=== PATIENT | male | born 1950 | race Caucasian/White ===

== ENCOUNTER 2019-07-16 12:51 | Outpatient (CLI) | payer MEDICARE, SELFPAY ==
--- NOTE | 2019-07-16 13:30 | USCV_ITS ---
Seferino Rashid Age: 68 Gender: M : 1950 Exam Date: 07/16/2019 13:37 Ordering Phys: Faby Morales MD ([email or web address]) Technologist: Parviz Burns Exam Location: [facility] – [place] Indication: SOB BP: 125 / 74 HR: 84 Rhythm: Sinus Technical Quality: Fair MEASUREMENTS (Male / Female) Normal Values 2D ECHO LV Diastolic Diameter PLAX 4.1 cm 4.2 - 5.9 / 3.9 - 5.3 cm LV Systolic Diameter PLAX 3.1 cm IVS Diastolic Thickness 1.0 cm 0.6 - 1.0 / 0.6 - 0.9 cm IVS Systolic Thickness 1.5 cm LVPW Diastolic Thickness 0.9 cm 0.6 - 1.0 / 0.6 - 0.9 cm LVPW Systolic Thickness 1.3 cm LVOT Diameter 2.5 cm LV Ejection Fraction 2D Teich 47.8 % LV Ejection Fraction MOD 2C 55.9 % LV Ejection Fraction 2C AL 56.4 % LA Diameter 4.4 cm LA Width 4.3 cm LA Height 5.3 cm RA Width 4.0 cm RA Height 5.2 cm M-MODE LV Diastolic Diameter MM 5.5 cm 4.2 - 5.9 / 3.9 - 5.3 cm LV Systolic Diameter MM 3.5 cm LV Ejection Fraction MM Teich 66.6 % IVS Diastolic Thickness MM 0.9 cm 0.6 - 1.0 / 0.6 - 0.9 cm IVS Systolic Thickness MM 1.7 cm LVPW Diastolic Thickness MM 1.5 cm 0.6 - 1.0 / 0.6 - 0.9 cm LVPW Systolic Thickness MM 1.6 cm RV Diastolic Diameter MM 1.0 cm Aortic Annulus Diameter 4.3 cm LA Ao Ratio MM 1.0 MV E Point Septal Separation 0.8 cm DOPPLER AV Peak Velocity 127.0 cm/s LVOT Peak Velocity 89.0 cm/s AV Area Cont Eq vti 3.5 cm squared AV Area Cont Eq pk 3.5 cm squared MV Area PHT 5.0 cm squared Mitral E to A Ratio 3.3 MV E' Velocity 14.0 cm/s Mitral E to MV E' Ratio 8.4 Mitral E to LV E' Lateral Ratio 7.0 Mitral E to LV E' Septal Ratio 10.7 TR Peak Velocity 280.0 cm/s TR Peak Gradient 31.4 mmHg TV Peak E Velocity 79.0 cm/s Right Atrial Pressure 3.0 mmHg Pulmonary Artery Systolic Pressu 34.4 mmHg FINDINGS Left Ventricle Normal left ventricular cavity size. Normal left ventricular systolic function. No regional wall motion abnormalities. Left ventricular ejection fraction is estimated at 66 %. Grade III/IV diastolic dysfunction (restrictive filling pattern), severely elevated filling pressures. Right Ventricle Normal right ventricular size. Mild pulmonary hypertension, RVSP 34.4 mmHg. Right Atrium The right atrium is normal in size. Left Atrium The left atrium is normal in size. Mitral Valve Structurally normal mitral valve without significant stenosis or prolapse. There is no mitral regurgitation. Aortic Valve Aortic valve sclerosis without stenosis or regurgitation. Tricuspid Valve Structurally normal tricuspid valve without significant stenosis or regurgitation. Pulmonary artery systolic pressure is normal. Pulmonic Valve Structurally normal pulmonic valve without significant stenosis. There is no pulmonic regurgitation. Pericardium Normal pericardium without effusion. Aorta Normal ascending aorta dimension. CONCLUSIONS 1-Normal left ventricular cavity size. Normal left ventricular systolic function. No regional wall motion abnormalities. Left ventricular ejection fraction is estimated at 66 %. Grade III/IV diastolic dysfunction (restrictive filling pattern), severely elevated filling pressures. 2-Aortic valve sclerosis without stenosis or regurgitation. 3-Normal right ventricular size. Mild pulmonary hypertension, RVSP 34.4 mmHg. 4-There is no pericardial effusion. 5-When compared to the prior exam dated 07/04/2018, there is no significant change. Faby Morales MD (Electronically Signed) Final Date: 17 July 2019 14:08 S
== END 2019-07-16 12:52 | disposition home or self-care (01) ==
LOC: RAD 12:53
PROVIDERS: Family Provider Family Medicine; PCP Family Medicine; Visit Provider Internal Medicine Cardiovascular Disease
DX: I27.20 Pulmonary hypertension, unspecified (principal); R01.1 Cardiac murmur, unspecified; R06.02 Shortness of breath
CPT/HCPCS: 93306

== ENCOUNTER 2019-08-07 11:21 | Outpatient (CLI) | payer MEDICARE, SELFPAY ==
--- NOTE | 2019-08-07 11:36 | CT_ITS ---
WS: [id number] CT LUNG CANCER SCREENING DLP: 48.35 mGy.cm DIvol: 1.51 mGy CLINICAL INFORMATION SCREENING VISIT: Baseline COMPARISON: Chest CTA 07/26/2017 FINDINGS Diagnostic quality: Limited by body habitus. Comments: None. Lung Nodules: None. Lungs: Subsegmental atelectasis at the lung bases bilaterally. Greater atelectasis at the RIGHT lung base. Additional linear stranding in the RIGHT middle lobe. No fissural nodules. This examination is not diagnostically adequate to exclude adenopathy. Pulmonary artery is markedly enlarged measuring 4. 7 cm in transverse diameter. Pulmonary arteries proximally are enlarged. Heart: Moderate enlargement the heart chambers. Scattered plaque within the RIGHT coronary, circumfle x and LEFT anterior descending coronary arteries. Other findings: None. 3. Incidental: Exam is limited by body habitus. CT/CT lung screening [id number] IMPRESSION: LUNG-RADS: 1S-Negative with Significant Findings FOLLOW UP: 12 Month: Continue annual screening with LDCT 1. Pulmonary hypertension. 2. Mild coronary artery calcification.
== END 2019-08-07 11:22 | disposition home or self-care (01) ==
LOC: RAD 11:25
PROVIDERS: Family Provider Family Medicine; PCP Family Medicine; Visit Provider Internal Medicine Critical Care Medicine
DX: I27.20 Pulmonary hypertension, unspecified (principal); Z87.891 Personal history of nicotine dependence; I25.10 Atherosclerotic heart disease of native coronary artery without angina pectoris
CPT/HCPCS: G0297

== ENCOUNTER 2019-08-14 07:02 | Outpatient (CLI) | payer MEDICARE, SELFPAY ==
[2019-08-14 07:33] LABS: Basophils # 0.1 10^3/uL (0.0-0.1); Basophils % 0.7 %; Eosinophils # 0.6 10^3/uL (0.0-0.8); Eosinophils % 4.5 %; Hematocrit 43.9 % (42.0-52.0); Hemoglobin 12.4 g/dL (11.7-16.6); Lymphocytes # 1.5 10^3/uL (0.8-4.8); Lymphocytes % 11.2 %; Mean Corpuscular HGB Conc 28.2 g/dL (30.0-36.0); Mean Corpuscular Hemoglobin 21.5 pg (28.0-34.0); Mean Corpuscular Volume 76.2 fL (80-94); Mean Platelet Volume 9.9 fL (7.4-10.4); Monocytes # 0.6 10^3/uL (0.2-0.9); Monocytes % 4.7 %; Neutrophils # 10.4 10^3/uL (1.8-7.7); Neutrophils % 76.5 %; Nucleated Red Blood Cells % 0 %; Platelet Count 604 10^3/cmm (130-400); Red Blood Count 5.76 10^6/uL (4.1-5.3); Red Cell Distribution Width 19.7 % (12.1-15.1); White Blood Count 13.5 10^3/uL (4.0-10.0)
[2019-08-14 07:57] LABS: Alanine Aminotransferase 13 U/L (0-41); Albumin Level 3.7 g/dL (3.5-5.2); Alkaline Phosphatase 108 IU/L (40-130); Anion Gap 13.4 (5-19); Aspartate Amino Transferase 17 U/L (0-40); Blood Urea Nitrogen 19 mg/dL (8-23); Calcium 9.1 mg/dL (8.5-10.5); Carbon Dioxide 35 mmol/L (22-29); Chloride 97 mmol/L (98-107); Globulin 3.5 g/dL (1.3-4.6); Glomerular Filtration Rate 66.8 mL/min (90-130); Glucose 149 mg/dL (65-115); Magnesium 1.6 mg/dL (1.7-2.3); Potassium 3.4 mmol/L (3.5-5.1); Sodium 142 mmol/L (136-145); Thyroid Stimulating Hormone 3.79 uIU/mL (0.27-4.20); Total Bilirubin 0.5 mg/dL (0.15-1.2); Total Protein 7.2 g/dL (6.6-8.7)
== END 2019-08-14 07:03 | disposition home or self-care (01) ==
LOC: LAB 07:09
PROVIDERS: Family Provider Family Medicine; PCP Family Medicine; Visit Provider Internal Medicine
DX: I48.91 Unspecified atrial fibrillation (principal); I10 Essential (primary) hypertension
CPT/HCPCS: 36415; 80053; 83735; 84443; 85025

== ENCOUNTER → 2019-08-24 12:36 | Outpatient (BNVA) | payer MEDICARE, SELFPAY | PROVIDERS: Family Provider Family Medicine; PCP Family Medicine; Visit Provider Nurse Practitioner | DX: J10.1 Influenza due to other identified influenza virus with other respiratory manifestations | CPT/HCPCS: 87804 ==

== ENCOUNTER 2019-09-09 12:12 | Outpatient (CLI) | payer MEDICARE, SELFPAY ==
--- NOTE | 2019-09-09 14:17 | PFTS_ITS ---
Date of Study:09/09/2019 Date of Dictation: MECHANICS: Forced vital capacity (FVC) is reduced. Forced expiratory volume in one second (FEV1) is reduced. FEV1/FVC is normal. FLOW VOLUME LOOP: Narrow. LUNG VOLUMES: Total lung capacity (TLC) is normal. Residual volume (RV) is normal. DIFFUSING CAPACITY FOR CARBON MONOXIDE: Mildly reduced. INTERPRETATION: The pulmonary function tests are consistent with nonspecific ventilatory limitation. Spirometry is consistent with moderate restriction. However, the total lung capacity is normal. This is possibly secondary to a combined obstructive and restrictive defect. The preserved inspiratory capacity with severely reduced expiratory reserve volume is suggestive of extrapulmonary cause of restriction. Total lung capacity and residual volume are normal. Gas exchange (DLCO) is mildly reduced. MTDD
== END 2019-09-09 12:13 | disposition home or self-care (01) ==
LOC: RT 12:13
PROVIDERS: Family Provider Family Medicine; PCP Family Medicine; Visit Provider Internal Medicine Critical Care Medicine
DX: R06.02 Shortness of breath (principal)
CPT/HCPCS: 94060; 94726; 94729; J7611

== ENCOUNTER 2019-11-30 12:00 | Outpatient (CLI) | payer MEDICARE, SELFPAY | END 2019-11-30 12:01 | disposition home or self-care (01) | LOC: SLEEP 12-01 13:18 | PROVIDERS: Family Provider Family Medicine; PCP Family Medicine; Visit Provider Internal Medicine Critical Care Medicine | DX: R06.02 Shortness of breath (principal) | CPT/HCPCS: 94762 ==

== ENCOUNTER → 2019-12-03 09:40 | Outpatient (BNVA) | payer MEDICARE, SELFPAY | PROVIDERS: Family Provider Family Medicine; PCP Family Medicine; Visit Provider Urology | DX: R97.20 Elevated prostate specific antigen [PSA] (principal); R39.9 Unspecified symptoms and signs involving the genitourinary system; N40.1 Benign prostatic hyperplasia with lower urinary tract symptoms; R35.1 Nocturia | CPT/HCPCS: 81001; 84153 ==

== ENCOUNTER → 2019-12-15 11:10 | Outpatient (BNVA) | payer MEDICARE, SELFPAY | PROVIDERS: Family Provider Family Medicine; PCP Family Medicine; Visit Provider Nurse Practitioner Family | DX: I50.30 Unspecified diastolic (congestive) heart failure (principal) | CPT/HCPCS: 80048 ==

== ENCOUNTER 2020-01-06 11:00 | Outpatient (CLI) | payer MEDICARE, SELFPAY | END 2020-01-06 11:01 | disposition home or self-care (01) | LOC: SLEEP 01-07 11:47 | PROVIDERS: PCP Family Medicine; Visit Provider Internal Medicine Critical Care Medicine | DX: J96.11 Chronic respiratory failure with hypoxia (principal) | CPT/HCPCS: 94762 ==

== ENCOUNTER 2020-01-07 11:17 | Outpatient (CLI) | payer MEDICARE, SELFPAY ==
[2020-01-07 13:54] LABS: Anion Gap 11.7 (5-19); Blood Urea Nitrogen 39 mg/dL (8-23); Calcium 8.6 mg/dL (8.5-10.5); Carbon Dioxide 33 mmol/L (22-29); Chloride 97 mmol/L (98-107); Glomerular Filtration Rate 50.5 mL/min (90-130); Glucose 159 mg/dL (65-115); Osmolality Calculated 287 mOsm/kg (285-295); Potassium 3.7 mmol/L (3.5-5.1); Sodium 138 mmol/L (136-145)
== END 2020-01-07 11:18 | disposition home or self-care (01) ==
LOC: LAB 11:20
PROVIDERS: PCP Family Medicine; Visit Provider Internal Medicine Critical Care Medicine
DX: I50.30 Unspecified diastolic (congestive) heart failure (principal)
CPT/HCPCS: 80048

== ENCOUNTER 2020-01-25 11:44 | Outpatient (CLI) | payer MEDICARE, SELFPAY ==
[2020-01-25 14:57] LABS: Anion Gap 14.7 (5-19); Blood Urea Nitrogen 30 mg/dL (8-23); Calcium 8.9 mg/dL (8.5-10.5); Carbon Dioxide 27 mmol/L (22-29); Chloride 99 mmol/L (98-107); Glomerular Filtration Rate 60.4 mL/min (90-130); Glucose 147 mg/dL (65-115); Osmolality Calculated 284 mOsm/kg (285-295); Potassium 3.7 mmol/L (3.5-5.1); Sodium 137 mmol/L (136-145)
== END 2020-01-25 11:45 | disposition home or self-care (01) ==
LOC: LAB 11:48
PROVIDERS: PCP Family Medicine; Visit Provider Internal Medicine Critical Care Medicine
DX: I50.33 Acute on chronic diastolic (congestive) heart failure (principal)
CPT/HCPCS: 80048

== ENCOUNTER 2020-02-08 11:00 | Outpatient (CLI) | payer MEDICARE, SELFPAY | END 2020-02-08 11:01 | disposition home or self-care (01) | LOC: SLEEP 02-09 15:16 | PROVIDERS: PCP Family Medicine; Visit Provider Internal Medicine Critical Care Medicine | DX: J96.11 Chronic respiratory failure with hypoxia (principal) | CPT/HCPCS: 94762 ==

== ENCOUNTER → 2020-06-06 10:16 | Outpatient (BNVA) | payer MEDICARE, SELFPAY | PROVIDERS: PCP Family Medicine; Visit Provider Specialist | DX: G25.81 Restless legs syndrome (principal); G62.89 Other specified polyneuropathies; Z87.891 Personal history of nicotine dependence | CPT/HCPCS: 95885; 95910; G0463 ==

== ENCOUNTER 2020-06-07 08:29 | Outpatient (CLI) | payer MEDICARE, SELFPAY ==
--- NOTE | 2020-06-07 08:31 | USCV_ITS ---
Seferino Rashid Age: 69 Gender: M : 1950 Exam Date: 06/07/2020 09:01 Ordering Phys: Jon Davis MD Technologist: Jerry Lewis Exam Location: [facility] [place] Indication: restless leg syndrome Risk Factors: Previous Vascular Surgery: RIGHT LEFT BP: 131.0 / 76.00 BP: 127.0/ 67.00 0 0 Waveform Velocity (cm/s) Velocity (cm/s) Waveform Triphasic 94.8 Iliac Prox 125.7 Triphasic Triphasic 86.4 Iliac Mid 87.3 Triphasic Triphasic 111.4 Iliac Distal 95.2 Triphasic Triphasic 149.9 BIOLOGY TUTOR 127.7 Triphasic Triphasic 115.7 SFA Prox 99.8 Triphasic Triphasic 139.3 SFA Mid 93.7 Triphasic Triphasic SFA Dist Triphasic 123.6 71.7 Triphasic 74.9 POP 76.1 Triphasic Triphasic 127.9 DISPATCHER CHIEF COAL SLURRY 77.8 Triphasic Triphasic 62.1 DPA 61.8 Triphasic 1.4 LULU 1.5 FINDINGS Supernormal resting ABIs bilaterally Normal arterial Doppler waveforms CONCLUSIONS No significant arterial obstruction, based on the above findings Dr Sanjuana Quick MD [facility] (Electronically Signed) Final Date: 07 June 2020 14:18 S
== END 2020-06-07 08:30 | disposition home or self-care (01) ==
LOC: US 08:30
PROVIDERS: PCP Family Medicine; Visit Provider Family Medicine
DX: G25.81 Restless legs syndrome (principal)
CPT/HCPCS: 93925

== ENCOUNTER → 2020-08-25 08:23 | Outpatient (BNVA) | payer MEDICARE, SELFPAY | PROVIDERS: PCP Family Medicine; Referring Provider Internal Medicine Critical Care Medicine; Visit Provider Internal Medicine | DX: E11.22 Type 2 diabetes mellitus with diabetic chronic kidney disease (principal); N18.2 Chronic kidney disease, stage 2 (mild); E11.65 Type 2 diabetes mellitus with hyperglycemia; E78.2 Mixed hyperlipidemia; I50.33 Acute on chronic diastolic (congestive) heart failure | CPT/HCPCS: 36415; 80048; 99205 ==

== ENCOUNTER 2020-08-25 09:40 | Outpatient (CLI) | payer MEDICARE, SELFPAY ==
[2020-08-25 10:55] LABS: Anion Gap 12.3 (5-19); Blood Urea Nitrogen 32 mg/dL (8-23); Calcium 8.5 mg/dL (8.5-10.5); Carbon Dioxide 33 mmol/L (22-29); Chloride 98 mmol/L (98-107); Glomerular Filtration Rate 46.5 mL/min (90-130); Glucose 147 mg/dL (65-115); Osmolality Calculated 300 mOsm/kg (285-295); Potassium 3.3 mmol/L (3.5-5.1); Sodium 140 mmol/L (136-145)
== END 2020-08-25 09:41 | disposition home or self-care (01) ==
PROVIDERS: PCP Family Medicine; Visit Provider Internal Medicine
DX: E11.22 Type 2 diabetes mellitus with diabetic chronic kidney disease (principal)
CPT/HCPCS: 36415; 80048

== ENCOUNTER 2020-08-30 09:03 | Outpatient (CLI) | payer MEDICARE, SELFPAY ==
--- NOTE | 2020-08-30 09:05 | CT_ITS ---
WS: [id number] LDCT LUNG CANCER SCREENING TECHNIQUE: Noncontrast CT of the chest with coronal and sagittal reformatted images. CLINICAL INFORMATION: HX OF TOBACCO USE COMPARISON: August 07, 2019 DLP: 52.21 mGy.cm DIvol: 1.[address] scans at [facility] use at least one of these dose optimization techniques: automat ed exposure control; mA and/or kV adjustment per patient size (includes targeted exams where dose is matched to clinical indication); or iterative reconstruction. FINDINGS: Cardiomegaly. Aortic calcification. Coronary calcification. No mediastinal or hilar lymphadenopathy. Normal GE junction. No suspicious pulmonary parenchymal opacities. Subsegmental atelectasis in the ri ght middle lobe and right lower lobe. Hypertrophic changes thoracic spine. Mild thoracic kyphosis. CT/CT lung screening [id number] IMPRESSION: LUNG-RADS: 2-Benign Appearance or Behavior FOLLOW UP: 12 Month: Continue annual screening with LDCT
== END 2020-08-30 09:04 | disposition home or self-care (01) ==
LOC: RAD 09:03
PROVIDERS: PCP Family Medicine; Visit Provider Internal Medicine Critical Care Medicine
DX: Z12.2 Encounter for screening for malignant neoplasm of respiratory organs (principal); Z87.891 Personal history of nicotine dependence; I51.7 Cardiomegaly; I70.0 Atherosclerosis of aorta; I25.10 Atherosclerotic heart disease of native coronary artery without angina pectoris
CPT/HCPCS: 71271

== ENCOUNTER → 2020-09-02 09:27 | Outpatient (BNVA) | payer MEDICARE, SELFPAY | PROVIDERS: PCP Family Medicine; Visit Provider Internal Medicine | DX: E11.9 Type 2 diabetes mellitus without complications (principal); E78.5 Hyperlipidemia, unspecified; E78.2 Mixed hyperlipidemia | CPT/HCPCS: 80061; 83036 ==

== ENCOUNTER 2020-09-26 10:38 | Outpatient (CLI) | payer MEDICARE, SELFPAY ==
[2020-09-26 11:20] LABS: Anion Gap 14.2 (5-19); Blood Urea Nitrogen 36 mg/dL (8-23); Calcium 8.5 mg/dL (8.5-10.5); Carbon Dioxide 29 mmol/L (22-29); Chloride 97 mmol/L (98-107); Glomerular Filtration Rate 50.4 mL/min (90-130); Glucose 144 mg/dL (65-115); Osmolality Calculated 295 mOsm/kg (285-295); Potassium 3.2 mmol/L (3.5-5.1); Sodium 137 mmol/L (136-145)
== END 2020-09-26 10:39 | disposition home or self-care (01) ==
PROVIDERS: PCP Family Medicine; Visit Provider Internal Medicine Cardiovascular Disease
DX: I50.33 Acute on chronic diastolic (congestive) heart failure (principal); E11.22 Type 2 diabetes mellitus with diabetic chronic kidney disease; N18.2 Chronic kidney disease, stage 2 (mild)
CPT/HCPCS: 36415; 80048; 87635

== ENCOUNTER 2020-09-30 05:58 | Day surgery (SDC) | payer MEDICARE, SELFPAY ==
[2020-09-30 06:52] VITALS: BP 117/74; PULSE 73; RESP 18; TEMP 36.8; O2SAT 91; BMI 47.5
[2020-09-30 07:00] LABS: Basophils # 0.1 10^3/uL (0.0-0.1); Basophils % 0.8 %; Eosinophils # 0.7 10^3/uL (0.0-0.8); Eosinophils % 4.2 %; Hematocrit 41.7 % (42.0-52.0); Hemoglobin 12.2 g/dL (11.7-16.6); Lymphocytes # 1.4 10^3/uL (0.8-4.8); Lymphocytes % 8.5 %; Mean Corpuscular HGB Conc 29.3 g/dL (30.0-36.0); Mean Corpuscular Hemoglobin 21.9 pg (28.0-34.0); Mean Corpuscular Volume 74.9 fL (80-94); Mean Platelet Volume 9.7 fL (7.4-10.4); Monocytes % 5.8 %; Neutrophils # 13.33 10^3/uL (1.8-7.7); Neutrophils % 79.4 %; Nucleated Red Blood Cells % 0 %; Platelet Count 765 10^3/cmm (130-400); Red Blood Count 5.57 10^6/uL (4.1-5.3); Red Cell Distribution Width 18.6 % (12.1-15.1); White Blood Count 16.8 10^3/uL (4.0-10.0)
[2020-09-30] MEDS: diphenhydrAMINE 50 mg Capsule PO (07:14)
--- NOTE | 2020-09-30 07:59 | PC.NURSE ---
updated pt with delay in case due to prior patient in the lab head- patient and family okay with the delay.
--- NOTE | 2020-09-30 08:15 | PC.NURSE ---
pt case now to be bumped to later this afternoon. after discussing with pt he can go to 107 and wait or being rescheduling he has decided to wait til later this afternoon. on the way out the door of [facility] he did voice his concern with waiting and he might decide to go home. i told him he should get down to the room and then decide after the change of rooms. if he does change his mind he was told to notify his nurse. he understood. due to the case being bumped his is allowed to stay with him per dr duarte.
--- NOTE | 2020-09-30 10:15 | PC.NURSE ---
patient requested at this time to be sent home to rescheduled procedure IV discontinued; cath intact Mai RN in CPRU notified she stated I will take care of rescheduling procedure
== END 2020-09-30 10:28 | disposition home or self-care (01) ==
LOC: CCL 05:59 → CSU 09:27
PROVIDERS: PCP Family Medicine; Visit Provider Internal Medicine Cardiovascular Disease
DX: R06.02 Shortness of breath (principal)
CPT/HCPCS: 85025; J1644; J2250; J3010; Q0163

== ENCOUNTER → 2020-10-14 06:02 | Day surgery (SDC) | payer MEDICARE, SELFPAY ==
--- NOTE | 2020-10-14 06:00 | XACV_ITS ---
BSA: 2.77 m2 Gender: Male : 1950 Any Known Allergies: Other Exam Priority: Routine Procedure(s): Procedure Description: Diagnostic procedure Procedure Description: Right Heart Catheterization Diagnostic Cath Status: Elective Conclusions 1. Right heart catheterization: Indication: Unexplained shortness of breath, pulmonary hypertension1-RA mean 24 mmHg2-RV 51/16 mean of 23 mmHg2-PA mean 42 mmHgPulmonary capillary wedge 30 mmHgCardiac output by Noemi 5 L, cardiac index 2.0No significant stepup notedModerate post capillary pulmonary hypertension, no reversibility noted.. Recommendations * Usual post-cath care. Diagnostic RX Recommendation: medical therapy and/or counseling Pressures Phase:Rest RV : 51 / 16 / 23 @ 7:44:00 AM PA : 68 / 37 ( 42 ) @ 7:26:00 AM 51 / 30 ( 41 ) @ 7:31:00 AM 55 / 33 ( 39 ) @ 7:35:00 AM 48 / 30 ( 38 ) @ 7:36:00 AM 55 / 35 ( 40 ) @ 7:44:00 AM RA : a wave = 30 v wave = 26 mean = 24 @ 7:45:00 AM PCW : a wave = 33 v wave = 32 mean = 30 @ 7:27:00 AM O2 Content Phase:Rest PA : O2 Content O2: 37.9 @ 7:31:00 AM Saturations Phase:Rest AO : 71 @ 7:26:00 AM RA : 38 @ 7:35:00 AM RV : 40 @ 7:36:00 AM PA : 38 @ 7:31:00 AM Cardiac Output Phase:Rest Noemi : 5 @ 11:11:13 AM Noemi Cardiac Index: 2 @ 11:11:13 AM Flow Phase:Rest Qp : 5 @ 11:11:13 AM Qs : 5 @ 11:11:13 AM Clinical Evaluation EBL: 5mL-10mL Procedural Details Procedure Consent Obtained. Pre-Procedure Time Out. Identified patient by full name and date of as verbalized by the patient/guarantor. Does the consent match the physician's order: Yes. Accurate & Complete Informed Consent: Yes. Inpatient/Outpatient History & Physical on Chart: Yes. If H&P is completed, is and addenduem needed: No; If yes, is the addendum complete: N/A. Visualize and Verify Site with Patient/Guarantor: N/A. Relevant Radiology Images available: Yes. Pre-op teaching completed and patient verbalized understanding. The risks, benefits, and alternatives of sedation and/or procedure were discussed by physician. The patient agrees to continue. Procedure started. Correct patient, site and procedure confirmed by cath team. PERRLA. Strong, equal hand oracle financials developer bilaterally. Lungs clear x 5 lobes. IV Site on Arrival: 20 gauge in the right anticubital. IV Site on Arrival: 20 gauge in the left anticubital. IV Fluids: 0.9% NaCl at KVO. 0 mL infused prior to sugar laboratory assistant. Pre Procedural Pulses: bilateral radial was 3+. Oxygen started at 2liters/min via nasal canula. bilateral groins was prepped with chloroprep then draped in the usual sterile fashion. Physician notified. Baseline sample Acquired. HR: 65 BPM. Physician arrived. Equipment: 6F - Radial. ACIST Manifold Kit Model BT 2000. Cardiac Cath Pack. Heparinized Saline (2 units/mL), 1000 mL bag. Physician scrubbed in. Immediate Pre-Procedure Time Out. Correct Patient: Yes; Correct Procedure: Yes; Correct Site: Yes; Correct Patient Position: Yes; Correct Supplies: Yes; Dried Flammable Prep: Yes; Blood Products Available: No;. Lidocaine 1% infiltrated to the right brachial. Sheath wire inserted into the [facility] brachial IV. [place] MON catheter inserted. Oximetry samples were obtained. Normal venous range: 60-85%. Normal arterial range: 95-100%. Pressure measurements obtained. A Manual Compression was successful obtaining hemostatsis at the Right Brachial Vein insertion site. Post Procedure: Pulses reassessed and unchanged. PERRLA. Strong, equal hand oracle financials developer bilaterally. No VTE prophylaxis required. Medication's Wasted: Lidocaine 1% = 14 mL. Medication's Wasted: Heparin = 1000 units. Medication's Wasted: Other = Versed 1 mg. Total IV fluids: 50 mL. Complications: None. Post-op diagnosis: Pulmonary Hypertension. Estimated blood loss: 5mL-10mL. Procedure completed. Vital chart was stopped. Patient transferred by bed to CPRU. Access Site Site: Right Brachial Vein Sheath Size: 6 Fr Hemostasis Method: Manual Compression Hemostasis Success: Successful Procedure Medications Start: 8:09 AM Stop: 8:09 AM Medication: Fentanyl Amount: 50 mcg Route: I.V. Start: 8:16 AM Stop: 8:16 AM Medication: Versed Amount: 1 mg Route: I.V. Start: 8:22 AM Stop: 8:22 AM Medication: Versed Amount: 1 mg Route: I.V. Start: 8:29 AM Stop: 8:29 AM Medication: Nitrogylcerin Amount: 2 Sprays Start: 8:32 AM Stop: 8:32 AM Medication: Nitrogylcerin Amount: 2 Sprays Start: 8:34 AM Stop: 8:34 AM Medication: Fentanyl Amount: 25 mcg Route: I.V. Start: 8:40 AM Stop: 8:40 AM Medication: Nitrogylcerin Amount: 2 Sprays Start: 8:41 AM Stop: 8:41 AM Medication: Versed Amount: 1 mg Route: I.V. I, the attending physician, have reviewed and verified all procedure medications. Yes, all medications given per verbal order History/Risk Factors Hypertension: Yes Dyslipidemia: Yes Peripheral Arterial Disease (PAD): No Myocardial Infarction (MO): No Obesity: No Renal Disease: No Prior Interventions PCI: No CABG: No Valve Surgery: No Report Signatures Finalized by Faby Morales MD on 10/27/2020 07:13 PM
[2020-10-14 06:31] VITALS: BP 108/62; PULSE 72; RESP 16; TEMP 36.3; O2SAT 88; BMI 46.5
--- NOTE | 2020-10-14 07:54 | P.HP_ITS ---
Same Day Surgery H&P Indication for Procedure/HPI DATE OF PROCEDURE: October 14, 2020 CHIEF COMPLAINT/INDICATIONFOR SURGICAL PROCEDURE: Pulmonary hypertension PREOP DIAGNOSIS: Pulmonary hypertension PLANNED PROCEDRUE: Operation Date: 10/14/20 07:00 Proposed Procedures p Cardiac Catheterization 83528 R06.02(Right) - Faby Morales MD 70-year-old male past medical history significant for atrial fibrillation ascending aortic aneurysm uncontrolled hypertension diastolic heart failure and atrial fibrillation for worsening of shortness of breath he is here for right heart cath recommended by Dr. Rao from pulmonary department. Patient has been explained all risk benefit and alternative for the procedure. Patient understan d the risk for pulmonary artery rupture leading to major minor bleed, urgent emergent surgery, pulmonary embolism, arrhythmia. He would like to proceed with it. Medications/Allergies* Home Medications Medication Instructions Recorded Confirmed Type albuterol sulfate 90 mcg/actuation 2 puff INHALATION Q6H PRN 07/08/19 10/14/20 History aerosol inhaler amlodipine 5 mg tablet 5 mg PO DAILY tab 07/08/19 10/14/20 History aspirin 81 mg tablet,delayed 81 mg PO DAILY tab 07/08/19 10/14/20 History release fluticasone furoate 27.5 1 spray INTRANASAL DAILY ml 07/08/19 10/14/20 History mcg/actuation nasal spray,suspension magnesium oxide 400 mg PO DAILY cap 07/08/19 10/14/20 History sertraline 50 mg tablet 50 mg PO DAILY tab 07/08/19 10/14/20 History tadalafil 5 mg tablet 5 mg PO DAILY tab 07/08/19 10/14/20 History tamsulosin 0.4 mg capsule 0.4 mg PO BID cap 07/08/19 10/14/20 History ropinirole 0.5 mg tablet 1 mg PO TID tab 03/10/20 10/14/20 History hydroxyzine HCl 25 mg tablet 50 mg PO BID PRN tab 07/26/20 10/14/20 History umeclidinium-vilanterol [Anoro 1 inh INHALATION DAILY 09/30/20 10/14/20 History Ellipta] Allergies/Adverse Reactions Allergy/AdvReac Type Severity Reaction Status Date / Time levofloxacin [From Levaquin] Allergy Unknown ADR/ALGY-Fl Verified 10/14/20 06:40 ushing codeine AdvReac Unknown ADR-Blurry Verified 10/14/20 06:40 Vision metaxalone [From Skelaxin] AdvReac Unknown ADR-Blurry Verified 10/14/20 06:40 Vision Current Medications: Generic Name Dose Route Start Last Admin Trade Name Alexandr PRN Reason Stop Dose Admin Sodium Chloride 1,000 mls @ 50 mls/hr 10/14/20 06:00 10/14/20 06:14 Sodium Chloride 0.9% IV 10/15/20 01:59 Not Given .Q20H ONE Pertinent History/Comorbid Conditions* Medical History (Updated 08/25/20 @ 15:10 by Terry Mason MD) Ascending aortic aneurysm Atrial fibrillation Diastolic heart failure Elevated PSA GERD (gastroesophageal reflux disease) History of colon polyps HTN (hypertension) Osteoarthritis Surgical History (Updated 03/05/20 @ 10:00 by Anjel Dalal MD) History of orthopedic surgery S/P appendectomy S/P cholecystectomy Status post colonoscopy with polypectomy Family History (Updated 08/05/19 @ 08:58 by Rosalie Babin LPN) Diabetes Father Brother Heart failure Mother Sepsis Father Cancer Brother stomach; colon Mother colon; liver Social History Smoking and tobacco status: former smoker Quit status (tobacco): has quit using tobacco Year quit tobacco: 2011 1PPD x 40 Years Second hand smoke exposure: No Alcohol intake: never Lives independently: Yes Household members: spouse Marital status: Current occupational status: retired History of recent travel: No Leisure activites: reading Current gender identity: Male Pertinent Exam Findings alert, oriented x 3 and clear to auscultation bilaterally Conscious Sedation Assessment PATIENT ASSESSED PRIOR TO SEDATION, WITH NO CHANGE NOTED: Yes AIRWAY EVAL/ANESTHESIA PLAN: ASA II, Risks, benefits & alternatives of sedation and/or procedure discussed and Patient agrees to continue as planned Recommendations Surgery/Procedure today Coding Level of Care Code Acute Human Resource Manager for Maryan Masters
[2020-10-14 09:00] VITALS: BP 98/65; PULSE 79; RESP 16; O2SAT 90
[2020-10-14 09:15] VITALS: BP 115/69; PULSE 71; RESP 20; O2SAT 92
[2020-10-14 09:30] VITALS: BP 90/67; PULSE 71; RESP 17; O2SAT 92
[2020-10-14 09:45] VITALS: BP 96/59; PULSE 72; RESP 16; O2SAT 92
== END | disposition home or self-care (01) ==
PROVIDERS: PCP Family Medicine; Visit Provider Internal Medicine Cardiovascular Disease
DX: I27.20 Pulmonary hypertension, unspecified (principal); I48.91 Unspecified atrial fibrillation; K21.9 Gastro-esophageal reflux disease without esophagitis; I10 Essential (primary) hypertension; M19.90 Unspecified osteoarthritis, unspecified site; Z87.891 Personal history of nicotine dependence
CPT/HCPCS: 36415; 93451; C1751; C1769; C1894; J1644; J2250; J3010; J7030

== ENCOUNTER → 2020-12-05 10:05 | Outpatient (BNVA) | payer MEDICARE, SELFPAY | PROVIDERS: PCP Family Medicine; Visit Provider Urology | DX: E11.22 Type 2 diabetes mellitus with diabetic chronic kidney disease (principal); N18.2 Chronic kidney disease, stage 2 (mild); R97.20 Elevated prostate specific antigen [PSA] | CPT/HCPCS: 81003; 84153 ==

== ENCOUNTER 2020-12-22 11:10 | Outpatient (CLI) | payer MEDICARE, SELFPAY ==
--- NOTE | 2020-12-22 11:45 | CT_ITS ---
WS: [id number] LDCT LUNG CANCER SCREENING TECHNIQUE: Noncontrast CT of the chest with coronal and sagittal reformatted images. CLINICAL INFORMATION: Lung cancer screening COMPARISON: August 30, 2020 DLP: 53.0 mGy.cm DIvol: 1.[address] scans at [facility] use at least one of these dose optimization techniques: automat ed exposure control; mA and/or kV adjustment per patient size (includes targeted exams where dose is matched to clinical indication); or iterative reconstruction. FINDINGS: Some images are degraded due to body habitus. Mild chronic emphysematous changes. No acute pulmonary infiltrates. No focal pneumonia or pleural flu id. Aortic calcification. Coronary calcification. Normal GE junction. Subsegmental atelectasis in the lung bases. No suspicious pulmonary parenchymal abnormalities. Hypertrophic changes thoracic spine. CT/CT lung screening [id number] IMPRESSION: LUNG-RADS: 1-Negative FOLLOW UP: 12 Month: Continue annual screening with LDCT
== END 2020-12-22 11:11 | disposition home or self-care (01) ==
LOC: CT 11:12
PROVIDERS: PCP Family Medicine; Visit Provider Internal Medicine Critical Care Medicine
DX: Z12.2 Encounter for screening for malignant neoplasm of respiratory organs (principal); F17.200 Nicotine dependence, unspecified, uncomplicated; I70.0 Atherosclerosis of aorta
CPT/HCPCS: 71271

== ENCOUNTER → 2021-04-11 09:45 | Outpatient (BNVA) | payer MEDICARE, SELFPAY | PROVIDERS: PCP Family Medicine; Visit Provider Internal Medicine Cardiovascular Disease | DX: Z01.818 Encounter for other preprocedural examination (principal); Z20.822 Contact with and (suspected) exposure to COVID-19 | CPT/HCPCS: 87635 ==

== ENCOUNTER 2021-04-17 09:26 | Day surgery (SDC) | payer MEDICARE, SELFPAY ==
[2021-04-12 15:01] VITALS: BMI 44.1
[2021-04-17 10:03] VITALS: BP 97/59; PULSE 75; RESP 20; TEMP 36.7; O2SAT 92
--- NOTE | 2021-04-17 10:11 | ANES.PREANE2 ---
Pre-Anesthetic Assessment Pre-Anesthetic Assessment: Height/Weight: Height 1.78 m Weight 139.706 kg Temp Pulse Resp BP Pulse Ox 98.1 F 75 20 H 97/59 92 04/17/21 10:03 04/17/21 10:03 04/17/21 10:03 04/17/21 10:03 04/17/21 10:03 Preop Diagnosis: Pulmonary hypertension Proposed Procedure: Operation Date: 04/17/21 11:00 Proposed Procedures p JAKE(Not Applicable) - Yoshi Perry M.D s Cardioversion(Not Applicable) - Yoshi Perry M.D Was Beta Bia taken within 24 hours: Yes Was Clonidine taken within 24 hours: N/A Last intake: Intake Last Liquid Date 04/16/21 Last Liquid Time 22:00 Last Solid Date 04/16/21 Last Solid Time 20:00 Social: Social History: No tobacco Exam: Pre-Anes Outpt Exam: alert, oriented x 3, clear to auscultation bilaterally and regular rate & rhythm Airway: Submandibular: WNL Cervical ROM: WNL MP: 2 History/ROS: No significant complaints Pulmonary: Pulmonary: Sleep apnea CV/HEM: CV/HEM: Afib, CAD and HTN Comments: Pulm HTN Metabolic: Metabolic: DM and Morbid obesity Neuropsych: Neuropsych: Depression Anesthetic Plan: ASA status: 3 Anesthesia: Anesthesia Evaluation and MAC Risk of > 500 ml blood loss (7ml/kg in children): No PFSH Anesthesia PFSH: Medical History Ascending aortic aneurysm Atrial fibrillation Diastolic heart failure Elevated PSA GERD (gastroesophageal reflux disease) History of colon polyps HTN (hypertension) Osteoarthritis Surgical History History of orthopedic surgery S/P appendectomy S/P cholecystectomy Status post colonoscopy with polypectomy Family History Father Diabetes Sepsis Brother Diabetes Cancer stomach; colon Mother Cancer colon; liver Heart failure Social History Quit status (tobacco): has quit using tobacco Year quit tobacco: 2011 - 1PPD x 40 Years Second hand smoke exposure: No Alcohol intake: never Lives independently: Yes Household members: spouse Marital status: Current occupational status: retired History of recent travel: No Leisure activites: reading Current gender identity: Male Data Anesthesia Cardiac Studies: No Data to Display
--- NOTE | 2021-04-17 10:17 | USCV_ITS ---
Seferino Rashid Age: 70 Gender: M : 1950 Exam Date: 04/17/2021 10:58 Ordering Phys: Faby Morales MD ([email or web address]) Technologist: Parviz Burns Exam Location: [facility] [place] Indication: A FIB BP: / HR: Rhythm: Atrial fibrillation Technical Quality: Good MEASUREMENTS (Male / Female) Normal Values Medications Patient given IV sedation by anesthesia service, for details please refer to the anesthesia report. Complications None. Proc. Components FINDINGS Left Ventricle Normal left ventricular cavity size. Normal left ventricular systolic function. Left ventricular ejection fraction is estimated at 55 %. Right Ventricle The right ventricle is normal in size and function. Right Atrium The right atrium is normal in size. Left Atrium The left atrium is normal in size. LA Appendage No thrombus visualized in the left atrial appendage. IA Septum Normal interatrial septum. Mitral Valve Thickened mitral valve. No mitral valve stenosis. Mild mitral valve regurgitation. Aortic Valve Aortic valve sclerosis without stenosis. No aortic valve regurgitation. Tricuspid Valve Structurally normal tricuspid valve without significant stenosis or regurgitation. Pulmonary artery systolic pressure is normal. Pulmonic Valve Structurally normal pulmonic valve without significant stenosis. There is no pulmonic regurgitation. Pericardium Normal pericardium without effusion. Aorta Plaque seen in the ascending aorta. CONCLUSIONS 1-Normal left ventricular cavity size. Normal left ventricular systolic function. Left ventricular ejection fraction is estimated at 55 %. 2-No thrombus visualized in the left atrial appendage. 3-Thickened mitral valve. No mitral valve stenosis. Mild mitral valve regurgitation. 4-There is no pericardial effusion. 5-No prior transesophageal echocardiogram to compare. Since there is no LV LA or left atrial appendage thrombus, we will proceed with electrical cardioversion Faby Morales MD (Electronically Signed) Final Date: 17 April 2021 19:02 S
--- NOTE | 2021-04-17 10:18 | ECG_ITS ---
[facility] Test Date: 2021-04-17 Pat Name: Seferino Rashid Department: Room: Gender: Male Environmental Marketer: : 1950 Requested By: Yoshi Perry Order Number: [id number] Loc MD: Sanjuana Quick M.D. Measurements Intervals [place] Rate: 64 P: IN: QRS: 18 QRSD: 121 T: 48 QT: 444 QTc: 458 Interpretive Statements ATRIAL FIBRILLATION POSSIBLE RIGHT VENTRICULAR CONDUCTION DELAY [RSR (QR) IN V1/V2] MODERATE ST DEPRESSION [0.05+ mV ST DEPRESSION] Compared to ECG 12/26/2018 13:38:02 No significant changes Electronically Signed On 04-17-2021 23:54:24 CDT by Sanjuana Quick M.D. [id number]
[2021-04-17 10:21] LABS: Glucose Point of Care 130 mg/dL (70-110)
[2021-04-17] MEDS: sodium chloride 0.9% 1,000 ML 30 ML IV (10:24)
--- NOTE | 2021-04-17 12:55 | W.PM.OPSFHP ---
Same Day Surgery H&P Indication for Procedure/HPI DATE OF PROCEDURE: April 17, 2021 CHIEF COMPLAINT/INDICATIONFOR SURGICAL PROCEDURE: Atrial fibrillation not tolerable, JAKE guided cardioversion PREOP DIAGNOSIS: Pulmonary hypertension PLANNED PROCEDRUE: Operation Date: 04/17/21 11:00 Proposed Procedures p JAKE(Not Applicable) - Tawny Cortes Cardioversion(Not Applicable) - Yoshi Perry M.D 70-year-old male past medical history significant for uncontrolled diabetes mellitus hypertension hyperlipidemia chronic kidney disease morbid obesity obstructive sleep apnea chronic atrial fibrillation diastolic dysfunction for worsening of shortness of breath and uncontrollable atrial fibrillation suggested transesophageal echocardiographic guided electrical cardioversion. Patient has been explained all risk benefit and alternative for the procedure he understand the risk for stroke bradycardia heart block intubation injury by a transesophageal echo to upper airways and GI tract. He would like to proceed with it. Medications/Allergies* Home Medications Medication Instructions Recorded Confirmed Type albuterol sulfate 90 mcg/actuation 2 puff INHALATION Q6H PRN 07/08/19 04/17/21 History aerosol inhaler amlodipine 5 mg tablet 5 mg PO DAILY tab 07/08/19 04/17/21 History aspirin 81 mg tablet,delayed 81 mg PO DAILY tab 07/08/19 04/17/21 History release fluticasone furoate 27.5 1 spray INTRANASAL DAILY ml 07/08/19 04/17/21 History mcg/actuation nasal spray,suspension magnesium oxide 400 mg PO DAILY cap 07/08/19 04/17/21 History sertraline 50 mg tablet 50 mg PO DAILY tab 07/08/19 04/17/21 History tadalafil 5 mg tablet 5 mg PO DAILY tab 07/08/19 04/17/21 History tamsulosin 0.4 mg capsule 0.4 mg PO BID cap 07/08/19 04/17/21 History ropinirole 0.5 mg tablet 1 mg PO TID tab 03/10/20 04/17/21 History hydroxyzine HCl 25 mg tablet 50 mg PO BID PRN tab 07/26/20 04/17/21 History metolazone 2.5 mg tablet 2.5 mg PO DAILY tab 01/26/21 04/17/21 History semaglutide [Ozempic] 1 mg SUBCUT .weekly 04/12/21 04/17/21 History Allergies/Adverse Reactions Allergy/AdvReac Type Severity Reaction Status Date / Time levofloxacin [From Levaquin] Allergy Unknown ADR/ALGY-Fl Verified 04/17/21 10:11 ushing codeine AdvReac Unknown ADR-Blurry Verified 04/17/21 10:11 Vision metaxalone [From Skelaxin] AdvReac Unknown ADR-Blurry Verified 04/17/21 10:11 Vision Current Medications: Generic Name Dose Route Start Last Admin Trade Name Manuelq PRN Reason Stop Dose Admin Sodium Chloride 1,000 mls @ 30 mls/hr 04/17/21 10:00 04/17/21 10:24 Sodium Chloride 0.9% IV 04/18/21 09:59 30 mls/hr .Q24H YAHAIRA Administration Pertinent History/Comorbid Conditions* Medical History (Updated 12/15/20 @ 13:48 by Chito Rao MD) Ascending aortic aneurysm Atrial fibrillation Diastolic heart failure Elevated PSA GERD (gastroesophageal reflux disease) History of colon polyps HTN (hypertension) Osteoarthritis Surgical History (Updated 03/05/20 @ 10:00 by Anjel Dalal MD) History of orthopedic surgery S/P appendectomy S/P cholecystectomy Status post colonoscopy with polypectomy Family History (Updated 08/05/19 @ 08:58 by Rosalie Babin LPN) Diabetes Father Brother Heart failure Mother Sepsis Father Cancer Brother stomach; colon Mother colon; liver Social History Quit status (tobacco): has quit using tobacco Year quit tobacco: 2011 1PPD x 40 Years Second hand smoke exposure: No Alcohol intake: never Lives independently: Yes Household members: spouse Marital status: Current occupational status: retired History of recent travel: No Leisure activites: reading Current gender identity: Male Pertinent Exam Findings alert, oriented x 3 and clear to auscultation bilaterally Pertinent Data PERTINENT DATA: Please see anesthesia Recommendations Surgery/Procedure today Coding Level of Care Code Acute 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
[2021-04-17 13:25] VITALS: BP 104/71; PULSE 84; RESP 16; TEMP 36.5; O2SAT 100
--- NOTE | 2021-04-17 13:25 | ECG_ITS ---
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 Measurements Intervals Draper Rate: 82 P: 75 CT: 251 QRS: 19 QRSD: 120 T: 32 QT: 423 QTc: 496 Interpretive Statements SINUS RHYTHM WITH FIRST DEGREE AV BLOCK RIGHT BUNDLE BRANCH BLOCK [120+ ms QRS DURATION, UPRIGHT V1, 40+ ms S IN I/aVL/V4/V5/V6] Compared to ECG 04/17/2021 10:24:02 First degree AV block now present Right bundle-branch block now present Atrial fibrillation no longer present ST (T wave) deviation no longer present Electronically Signed On 04-17-2021 23:55:41 CDT by Sanjuana Quick M.D. [email or web address]
[2021-04-17 13:35] VITALS: BP 116/73; PULSE 80; RESP 18; O2SAT 96
--- NOTE | 2021-04-18 04:58 | ANE.PACU2 ---
Inpatient post-anesthesia follow up: Airway intact: Yes Vital signs: Temperature 97.7 F Pulse Rate 80 Respiratory Rate 18 Blood Pressure 116/73 Pulse Oximetry 96 Oxygen Delivery Me thod Room Air Oxygen Flow Rate Fraction of Inspir ed Oxygen Hydration adequate: Yes Nausea and vomiting: No Pain level: 1 Mental status: Baseline
== END 2021-04-17 14:02 | disposition home or self-care (01) ==
PROVIDERS: Internal Medicine Cardiovascular Disease; PCP Family Medicine; Visit Provider Internal Medicine
PROC: (CPT 93312; principal; 2021-04-17 11:00)
PROC: 5A2204Z Restoration of Cardiac Rhythm, Single (ICD-10-PCS; 2021-04-17 11:00)
DX: I48.91 Unspecified atrial fibrillation (principal); I27.20 Pulmonary hypertension, unspecified; E66.01 Morbid (severe) obesity due to excess calories; Z68.41 Body mass index [BMI] 40.0-44.9, adult; G47.33 Obstructive sleep apnea (adult) (pediatric); I50.30 Unspecified diastolic (congestive) heart failure; E11.22 Type 2 diabetes mellitus with diabetic chronic kidney disease; I12.9 Hypertensive chronic kidney disease with stage 1 through stage 4 chronic kidney disease, or unspecified chronic kidney disease; N18.9 Chronic kidney disease, unspecified; Z79.82 Long term (current) use of aspirin; K21.9 Gastro-esophageal reflux disease without esophagitis; M19.90 Unspecified osteoarthritis, unspecified site; Z87.891 Personal history of nicotine dependence; I34.0 Nonrheumatic mitral (valve) insufficiency; F32.9 Major depressive disorder, single episode, unspecified; Z82.49 Family history of ischemic heart disease and other diseases of the circulatory system; Z83.3 Family history of diabetes mellitus
CPT/HCPCS: 36416; 82962; 92960; 93005; 93312; 93320; 93325; 96360; 96361; J2704; J7030

== ENCOUNTER → 2021-05-04 09:40 | Outpatient (BNVA) | payer MEDICARE, SELFPAY | PROVIDERS: PCP Family Medicine; Visit Provider Internal Medicine | DX: E11.65 Type 2 diabetes mellitus with hyperglycemia (principal); E11.22 Type 2 diabetes mellitus with diabetic chronic kidney disease; N18.2 Chronic kidney disease, stage 2 (mild); E78.2 Mixed hyperlipidemia; I50.33 Acute on chronic diastolic (congestive) heart failure | CPT/HCPCS: 99214 ==

== ENCOUNTER 2021-07-18 13:54 | Outpatient (CLI) | payer MEDICARE, SELFPAY ==
--- NOTE | 2021-07-18 19:44 | ONC CON_ITS ---
Dr. Elliott New Patient Note Patient: Seferino Rashid Unit #: [id number]: 1950 Dicatated By: Sebas Elliott M.D.Date of Visit: Jul 18, 2021 Onc MED New Patient/Consult Referring Physician: Eliane Hernández Chief Complaint: Polycythemia rubra vera. History of Present Illness: This is a 70-year-old man with known polycythemia rubra vera, JAK2 gene mutation positive, initially diagnosed in 2010. He has been managed with phlebotomy and aspirin prophylaxis. He has multiple medical illnesses including hypertension, hyperlipidemia, type 2 diabetes, chronic kidney disease, atrial fibrillation, diastolic congestive heart failure, COPD, obesity with associated restrictive airway disease and pulmonary hypertension, obstructive sleep apnea, GERD, and degenerative arthritis. He has a positive family history for colon cancer, and he had multiple colonic polyps excised on colonoscopy in 2019. Pathology at that time showed tubular adenomas with mild dysplasia. In April 2011 he had been diagnosed with polycythemia rubra vera, JAK2 gene mutation positive. He was followed by Dr. Eliane Hernández in [place], [place] and managed with phlebotomy, target hematocrit 45%. He was also on aspirin prophylaxis. He was most recently seen there and phlebotomized on 07/06/2021. His CBC at that time showed hemoglobin of 13.3 g with hematocrit 45.6%. The red cell indices were hypochromic/microcytic. The white blood cell count was 15,500 and the platelet count was 589,000. His comprehensive metabolic profile showed elevated BUN and creatinine at 25 and 1.38 mg/dL. Bilirubin and liver enzymes were normal. His serum iron studies showed low transferrin saturation at 7% and the ferritin levels low at 7 ng/mL. He says his most recent phlebotomy prior to that was a year and a half ago. He is being seen here now so that he can receive his hematology care closer to home. He says he feels wore out. He has very limited activity, in part due to fatigue and shortness of breath, but mainly due to degenerative arthritis in both knees. He is able to ambulate short distances at home, but he generally uses an electric scooter when he goes out. His ECOG score is 3. He has good appetite. He has been trying to lose weight, he is currently down around 30 pounds. He has not had fever. He used to have night sweating, that seems to have resolved. He does complain of having itching, mainly on his back and more so at night. He is short of breath with activity, he also has cough. He has not been having chest pain. He does have atrial fibrillation, for which he underwent a cardioversion procedure in March 2021. He is on anticoagulation with apixaban. He occasionally has nausea. He has acid reflux which is pretty well controlled with medication. He has some constipation. He has not been aware of any blood in the stool. Bladder function remains adequate, though he has had some decrease in urinary stream. He does not complain of headache or dizziness. He has numbness in his right foot, and he also has a diagnosis of peripheral neuropathy. Past Medical History: His medical history, in addition to polycythemia rubra vera, includes anxiety, atrial fibrillation, benign prostatic hypertrophy, chronic kidney disease, chronic obstructive pulmonary disease, degenerative arthritis, diastolic congestive heart failure, gastroesophageal reflux disease, history of colonic polyps, hyperlipidemia, hypertension, Obesity with associated restricted lung disease, obstructive sleep apnea, peripheral neuropathy, pulmonary hypertension, and type II diabetes. Past Surgical History: His surgical/procedural history consists of appendectomy, arthroscopic knee surgery, cholecystectomy, colonoscopy in 2005 and in 2018, and JAKE guided cardioversion in 2020. Medications: Anoro Ellipta 2 Puff(s) (of 62.5-25 mcg/inh) Aerosol Powder, Breath Activated Inhalation q 6 hours PRN, Carvedilol 1 Tablet (of 12.5 mg) Oral b.i.d., Cialis 1 Tablet (of 5 mg) Oral daily, Dexlansoprazole Capsule Delayed Release Oral, Ecotrin Low Strength 1 Tablet (of 81 mg) Tablet, enteric coated Oral daily, Eliquis 1 Tablet (of 5 mg) Oral b.i.d., Empagliflozin 2 Tablet (of 10 mg) Oral every am, Finasteride 1 Tablet (of 5 mg) Oral daily, Fluticasone Furoate 1 [place](s) (of 27.5 mcg/spray) Suspension Nasal daily, Furosemide 1 Tablet (of 40 mg) Oral b.i.d., hydrOXYzine HCl 1 Tablet (of 50 mg) Oral b.i.d. PRN, Magnesium Oxide 1 Capsule (of 400 mg) Oral daily, metOLazone 1 Tablet (of 2.5 mg) Oral q 2 days, Ozempic (1 MG/DOSE) 1 mg (of 4 mg/3mL) Subcutaneous, Potassium Chloride [place] ER 2 Tablet (of 10 meq) Tablet, controlled release Oral t.i.d., ProAir HFA 2 Puff(s) Aerosol, solution Inhalation q 6 hours PRN, rOPINIRole HCl 2 Tablet (of 0.5 mg) Oral t.i.d., Sertraline HCl 2 Tablet (of 50 mg) Oral daily, Simvastatin 1 Tablet (of 20 mg) Oral daily, Tamsulosin HCl 1 Tablet (of 0.4 mg) Capsule Oral b.i.d. Allergies: Codeine Sulfate, Levaquin, and Skelaxin. Social History: Mr. Rashid is . He is retired. He has a history of smoking 1 pack of cigarettes daily, but he quit smoking 8 years ago. He had some alcohol use in the past, but not heavy. He quit drinking more than 20 years ago. Family History: Father had colon cancer and at age 83 with heart failure. He also had diabetes. His mother also had colon cancer and heart disease. She at age 80. A brother with alcohol related organ failure at age 50. A sister with leukemia at age 2. Review Of Symptoms: Constitutional - He is ambulatory but he has very limited activity. Appetite is good. He has been trying to lose weight. He has not had fever. He used to have night sweating, but that has resolved. He has itching, mainly on his back especially at night. ECOG score is 3, Eyes - He has had declining vision, ENMT - No hearing loss or tinnitus. He usually has sinus congestion/drainage. No mouth sores. No sore throat or difficulty swallowing, Hematologic/Lymphatic - He has easy bruising, Respiratory - He has shortness of breath with activity, and he has cough. He is on CPAP for obstructive sleep apnea. No pleuritic pain or hemoptysis, Cardiovascular - No angina pain. He has atrial fibrillation, Gastrointestinal - He occasionally has nausea. He has acid reflux. It is pretty well controlled with medication. He has some constipation. He has not been aware of any blood in the stool or black stools, Genitourinary (M) - He has had some hesitancy and some decrease in urinary stream. He has nocturia x 2 or 3. No urgency or incontinence, Musculoskeletal - He has arthritis pain in both knees, Neurologic - No headache or dizziness. He has numbness in his right foot. No other focal neurologic symptoms, Psychiatric - He has anxiety. No depression. He has some difficulty falling asleep. Vital Signs: Performed on Jul 18, 2021 14:57: 7, 7, 43.91 (HIGH), 2.50 sq.m, 70 in, 91 % (LOW), 99 /min, 18 /min, 112/69 mm(hg), 98.7 F, and 306.0 lbs (HIGH). Physical Examination: Constitutional - He has limited mobility, Eyes - Sclerae nonicteric. Conjunctivae clear, ENMT - No lesions noted in the oral cavity, Neck - No mass or thyromegaly, Hematologic/Lymphatic - No cervical, clavicular, or axillary adenopathy, Respiratory - Lungs sound clear with some decrease in air movement bilaterally, Cardiovascular - Heart rhythm is regular. There is no murmur, gallop, or rub noted, Abdomen - Distended. Liver and spleen do not appear enlarged. There is no abdominal mass or ascites noted and there is no inguinal adenopathy, Back/Spine - No spine or CVA tenderness noted, Extremities - No edema. Dorsalis pedis pulses are palpable bilaterally, Integumentary - No rashes. No suspicious skin lesions noted, Neurologic - No focal neurologic deficits noted. Problem List: 1. Polycythemia rubra vera, JAK2 gene mutation positive, initially diagnosed in 2010. He has been managed with phlebotomy and aspirin prophylaxis. 2. He has associated iron deficiency. 3. Hypertension. 4. Hyperlipidemia. 5. Type 2 diabetes. 6. Chronic kidney disease. 7. Atrial fibrillation. 8. Diastolic congestive heart failure. 9. Obesity with associated restrictive lung disease and pulmonary hypertension. 10. Obstructive sleep apnea. 11. GERD. 12. Degenerative arthritis. 13. Peripheral neuropathy. 14. Benign prostatic hypertrophy. 15. History of colonic polyps. 16. Anxiety. Problems Addressed with this Encounter and Plan: Patient with polycythemia rubra vera, JAK2 gene mutation positive. He had elevated hemoglobin/hematocrit at initial diagnosis in April 2011. He has been managed with phlebotomy and aspirin prophylaxis. He has been maintained with his target hematocrit at 45%. During follow-up he has had mildly elevated white blood cell and platelet counts. In addition, he has iron deficiency associated with the phlebotomies, which I suspect accounts for some of his symptoms. I reviewed options for his further management, and I think it would be reasonable to give him a trial of medical therapy, to see if he would tolerate some iron replenishment. The usual first-line treatment, though, would be hydroxyurea, as I believe that ruxolitinib is still approved only as a second line treatment. I discussed the rationale for this and reviewed potential side effects with the hydroxyurea. The other option is to continue with phlebotomy and aspirin prophylaxis, which is not at all a bad choice for him, particularly in view of his multiple underlying illnesses and overall poor performance status. At least for now he is just going to think about it. Since he has just had a phlebotomy, I will just schedule a follow-up visit with repeat lab studies in 1 month. In the meantime, I suggested that he try increasing his aspirin to 162 mg twice daily to see if that might help with his itching. Signed By: Sebas Elliott M.D. <<Signature on File>>
== END 2021-07-18 13:55 | disposition home or self-care (01) ==
PROVIDERS: PCP Family Medicine; Visit Provider Internal Medicine Medical Oncology
DX: D45 Polycythemia vera (principal); D50.9 Iron deficiency anemia, unspecified; I10 Essential (primary) hypertension; E78.5 Hyperlipidemia, unspecified; E11.9 Type 2 diabetes mellitus without complications; N18.9 Chronic kidney disease, unspecified; I48.91 Unspecified atrial fibrillation; I50.9 Heart failure, unspecified; E66.9 Obesity, unspecified; G47.33 Obstructive sleep apnea (adult) (pediatric); K21.9 Gastro-esophageal reflux disease without esophagitis; M19.90 Unspecified osteoarthritis, unspecified site; G62.9 Polyneuropathy, unspecified; N40.0 Benign prostatic hyperplasia without lower urinary tract symptoms; Z86.010 Personal history of colon polyps; F41.9 Anxiety disorder, unspecified; Z87.891 Personal history of nicotine dependence
CPT/HCPCS: 99205

== ENCOUNTER → 2021-08-04 08:40 | Outpatient (BNVA) | payer MEDICARE, SELFPAY | PROVIDERS: PCP Family Medicine; Visit Provider Internal Medicine | DX: E11.65 Type 2 diabetes mellitus with hyperglycemia (principal); E11.22 Type 2 diabetes mellitus with diabetic chronic kidney disease; N18.2 Chronic kidney disease, stage 2 (mild); E78.5 Hyperlipidemia, unspecified; E78.2 Mixed hyperlipidemia; G62.9 Polyneuropathy, unspecified; D47.09 Other mast cell neoplasms of uncertain behavior; Z87.891 Personal history of nicotine dependence | CPT/HCPCS: 99214 ==

== ENCOUNTER 2021-08-15 10:03 | Outpatient (CLI) | payer MEDICARE, SELFPAY ==
[2021-08-15 10:32] LABS: Basophils # 0.2 10^3/uL (0.0-0.1); Basophils % 1.1 %; Eosinophils # 0.9 10^3/uL (0.0-0.8); Eosinophils % 5.8 %; Hematocrit 47.5 % (42.0-52.0); Hemoglobin 13.8 g/dL (11.7-16.6); Lymphocytes # 1.6 10^3/uL (0.8-4.8); Lymphocytes % 10.3 %; Mean Corpuscular HGB Conc 29.1 g/dL (30.0-36.0); Mean Corpuscular Hemoglobin 21.7 pg (28.0-34.0); Mean Corpuscular Volume 74.8 fl (80-94); Mean Platelet Volume 10.1 fL (7.4-10.4); Monocytes # 0.7 10^3/uL (0.2-0.9); Monocytes % 4.6 %; Neutrophils # 11.83 10^3/uL (1.8-7.7); Neutrophils % 75.8 %; Nucleated Red Blood Cells % 0 %; Platelet Count 634 10^3/cmm (130-400); Red Blood Count 6.35 10^6/uL (4.1-5.3); Red Cell Distribution Width 19.2 % (12.1-15.1); White Blood Count 15.6 10^3/uL (4.0-10.0)
[2021-08-15 10:52] LABS: Alanine Aminotransferase 30 U/L (0-41); Albumin Level 4.1 g/dL (3.5-5.2); Alkaline Phosphatase 134 IU/L (40-130); Blood Urea Nitrogen 20 mg/dL (8-23); Calcium 9.2 mg/dL (8.5-10.5); Carbon Dioxide 26 mmol/L (22-29); Chloride 101 mmol/L (98-107); Ferritin 9 ng/mL (30-400); Glomerular Filtration Rate 74.1 mL/min (90-130); Glucose 159 mg/dL (65-115); Iron 25 ug/dL (59-158); Osmolality Calculated 290 mOsm/kg (285-295); Sodium 137 mmol/L (136-145); Total Bilirubin 0.4 mg/dL (0.15-1.2); Total Protein 7.1 g/dL (6.6-8.7)
[2021-08-15 10:56] LABS: Anion Gap 14.3 (5-19); Aspartate Amino Transferase 25 U/L (0-40); Lactate Dehydrogenase 232 U/L (135-225); Percent Saturation 6.8 % (20-50); Potassium 4.3 mmol/L (3.5-5.1); Total Iron Binding Capacity 367 mcg/dl; Unsaturated Iron Binding 342 ug/dL (112-347)
[2021-08-15] MEDS: sodium chloride 0.9% 500 ML 999 ML IV (12:15)
--- NOTE | 2021-08-18 07:42 | ONC FU_ITS ---
Dr. Elliott Patient Follow-Up Note Patient: Seferino Rashid Unit #: [id number]: 1950 Dicatated By: Sebas Elliott M.D.Date of Visit:Aug 15, 2021 Onc Med Follow-up/Prog Note Chief Complaint: Polycythemia rubra vera. History of Present Illness: This is a 71 year-old man with polycythemia rubra vera, JAK2 gene mutation positive, initially diagnosed in 2010. He has been managed with phlebotomy and aspirin prophylaxis. He was initially diagnosed with polycythemia rubra vera in April 2011. It was confirmed to harbor the JAK2 [id number] mutation. He was followed by Dr. Eliane Hernández in [place], [place] and managed with phlebotomy, target hematocrit 45%. He was also on aspirin prophylaxis. He was there and phlebotomized on 07/06/2021. His CBC at that time showed hemoglobin of 13.3 g with hematocrit 45.6%. The red cell indices were hypochromic/microcytic. The white blood cell count was 15,500 and the platelet count was 589,000. His comprehensive metabolic profile showed elevated BUN and creatinine at 25 and 1.38 mg/dL. Bilirubin and liver enzymes were normal. His serum iron studies showed low transferrin saturation at 7% and the ferritin levels low at 7 ng/mL. His most recent phlebotomy prior to had been a year and a half earlier. I had seen him initially on 07/18/2021, as he had desire to receive his further hematology care closer to home. As he had just recently been phlebotomized, I had just recommended a 1-month interval follow-up visit. He has multiple other medical illnesses including hypertension, hyperlipidemia, type 2 diabetes, chronic kidney disease, atrial fibrillation, diastolic congestive heart failure, COPD, obesity with associated restrictive airway disease and pulmonary hypertension, obstructive sleep apnea, GERD, peripheral neuropathy, degenerative arthritis, benign prostatic hypertrophy, and chronic anxiety. He has a positive family history for colon cancer, and he had multiple colonic polyps excised on colonoscopy in 2019. Pathology at that time showed tubular adenomas with mild dysplasia. He has a history of smoking 1 pack of cigarettes daily, but he quit smoking around 2013. He is seen for a follow-up visit. He continues to have very limited activity and lately he has been more tired than usual. He ambulates short distances at home with a walker. He is mostly sedentary. ECOG score is 3. He has good appetite. He has not had fever. He occasionally has sweating. He complains of having blurred vision in his right eye. He has sinus drainage. He does not complain of cough. He does have shortness of breath with activity. He has not been having chest pain. He has no GI complaints other than some mild constipation. He reports having a weak urinary stream, but it is better when he takes furosemide. He has achy joints, tickly the knees, hands, and shoulders. He does not complain of headache or dizziness. He has no numbness/paresthesia or other focal neurologic symptoms. He does report that he bruises easily. Medications: Anoro Ellipta 2 Puff(s) (of 62.5-25 mcg/inh) Aerosol Powder, Breath Activated Inhalation q 6 hours PRN, Carvedilol 1 Tablet (of 12.5 mg) Oral b.i.d., Cialis 1 Tablet (of 5 mg) Oral daily, Dexlansoprazole Capsule Delayed Release Oral, Ecotrin Low Strength 1 Tablet (of 81 mg) Tablet, enteric coated Oral daily, Eliquis 1 Tablet (of 5 mg) Oral b.i.d., Empagliflozin 2 Tablet (of 10 mg) Oral every am, Finasteride 1 Tablet (of 5 mg) Oral daily, Fluticasone Furoate 1 [place](s) (of 27.5 mcg/spray) Suspension Nasal daily, Furosemide 1 Tablet (of 40 mg) Oral b.i.d., hydrOXYzine HCl 1 Tablet (of 50 mg) Oral b.i.d. PRN, Magnesium Oxide 1 Capsule (of 400 mg) Oral daily, metOLazone 1 Tablet (of 2.5 mg) Oral q 2 days, Ozempic (1 MG/DOSE) 1 mg (of 4 mg/3mL) Subcutaneous, Potassium Chloride [place] ER 2 Tablet (of 10 meq) Tablet, controlled release Oral t.i.d., ProAir HFA 2 Puff(s) Aerosol, solution Inhalation q 6 hours PRN, rOPINIRole HCl 2 Tablet (of 0.5 mg) Oral t.i.d., Sertraline HCl 2 Tablet (of 50 mg) Oral daily, Simvastatin 1 Tablet (of 20 mg) Oral daily, Tamsulosin HCl 1 Tablet (of 0.4 mg) Capsule Oral b.i.d. Allergies: Codeine Sulfate, Levaquin, and Skelaxin. Vital Signs: Performed on Aug 15, 2021 11:36 Height - 70.00 in Weight - 309.8 lbs (HIGH) BSA - 2.51 sq.m BMI - 44.45 (HIGH) Temperature - 98.2 F (LOW) Pulse - 107 /min (HIGH) Respiration - 18 /min BP - 114/70 mm(hg) O2 Sat - 95 % (LOW) Pain - 8 Fatigue - 8 Physical Examination: Constitutional - He looks pretty good generally, though he does have limited mobility, Eyes - Sclerae nonicteric. Conjunctivae clear, ENMT - No lesions noted in the oral cavity, Hematologic/Lymphatic - No cervical, clavicular, or axillary adenopathy, Respiratory - Lungs sound clear with some decrease in air movement bilaterally, Cardiovascular - Heart rhythm is regular. There is no murmur, gallop, or rub noted, Abdomen - Distended. Liver and spleen do not appear enlarged. There is no abdominal mass or ascites noted and there is no inguinal adenopathy, Extremities - Slight edema, Neurologic - No focal neurologic deficits noted. Lab/Imaging: Test performed on Aug 15, 2021 10:15 Ferritin 9 ng/mL Iron 25 mcg/dL LDH (Total) 232 U/L Sodium 137 mmol/L Iron Binding Capacity (TIBC) 367 mcg/dl Potassium 4.3 mmol/L % Iron Saturation 6.8 % Chloride 101 mmol/L CO2 26 mmol/L UIBC 342 mcg/dL Anion Gap 14.3 BUN 20 mg/dL Creatinine 1.0 mg/dL Cr Clearance (Est) 138.57 mL/min eGFR 74.1 mL/min Glucose 159 mg/dL Osmolality - Calculated 290 mOsm/kg Calcium 9.2 mg/dL Protein, Total 7.1 g/dL Albumin 4.1 g/dL Globulin 3.0 g/dL Bilirubin, Total 0.4 mg/dL ALT (SGPT) 30 U/L AST (SGOT) 25 U/L Alkaline Phosphatase 134 IU/L WBC 15.6 10 3/uL RBC 6.35 10 6/uL HGB 13.8 g/dL HCT 47.5 % MCV 74.8 fl MCH 21.7 pg MCHC 29.1 g/dL RDW 19.2 % Platelet Count 634 10 3/cmm MPV 10.1 fL Neutrophils 11.83 10 3/uL Lymphocytes 1.6 10 3/uL Monocytes 0.7 10 3/uL Eosinophils 0.9 10 3/uL Basophils 0.2 10 3/uL Neutrophil % 75.8 % Lymphocyte % 10.3 % Monocyte % 4.6 % Eosinophil % 5.8 % Basophils % 1.1 % NRBC % 0 % Problem List: 1. Polycythemia rubra vera, JAK2 gene mutation positive, initially diagnosed in 2010. He has been managed with phlebotomy and aspirin prophylaxis. 2. He has associated iron deficiency. 3. Hypertension. 4. Hyperlipidemia. 5. Type 2 diabetes. 6. Chronic kidney disease. 7. Atrial fibrillation. 8. Diastolic congestive heart failure. 9. Obesity with associated restrictive lung disease and pulmonary hypertension. 10. Obstructive sleep apnea. 11. GERD. 12. Degenerative arthritis. 13. Peripheral neuropathy. 14. Benign prostatic hypertrophy. 15. History of colonic polyps. 16. Anxiety. Problems Addressed with this Encounter and Plan: Patient with polycythemia rubra vera, JAK2 gene mutation positive. He had elevated hemoglobin/hematocrit at initial diagnosis in April 2011. He has been managed with phlebotomy and aspirin prophylaxis. He has been maintained with his target hematocrit at 45%. During follow-up he has had mildly elevated white blood cell and platelet counts. In addition, he has iron deficiency associated with the phlebotomies. He has significant fatigue, but in the context of his multiple underlying medical illnesses, it is uncertain to what extent that may be due to the iron deficiency. We discussed the fact that under usual circumstances I would be recommending treatment with hydroxyurea with white blood cell count and platelet count both elevated. However, other than having the associated iron deficiency, he has been doing very well on aspirin prophylaxis and phlebotomies as needed, and I do not see any compelling reason to change that. With his hematocrit slightly above target, he will be phlebotomized today. I will then recheck a CBC in 6 weeks, and I will see him again in 3 months. Signed By: Sebas Elliott M.D. <<Signature on File>>
== END 2021-08-15 10:04 | disposition home or self-care (01) ==
PROVIDERS: PCP Family Medicine; Visit Provider Internal Medicine Medical Oncology
DX: D45 Polycythemia vera (principal); E78.5 Hyperlipidemia, unspecified; I12.9 Hypertensive chronic kidney disease with stage 1 through stage 4 chronic kidney disease, or unspecified chronic kidney disease; E11.22 Type 2 diabetes mellitus with diabetic chronic kidney disease; N18.9 Chronic kidney disease, unspecified; J44.9 Chronic obstructive pulmonary disease, unspecified; I48.91 Unspecified atrial fibrillation; K21.9 Gastro-esophageal reflux disease without esophagitis; F41.9 Anxiety disorder, unspecified; I50.30 Unspecified diastolic (congestive) heart failure; N40.0 Benign prostatic hyperplasia without lower urinary tract symptoms; Z79.899 Other long term (current) drug therapy
CPT/HCPCS: 80053; 82728; 83540; 83550; 83615; 85025; 96360; 99195; 99215; J7040

== ENCOUNTER → 2021-09-26 08:52 | Outpatient (BNVA) | payer MEDICARE, SELFPAY | PROVIDERS: PCP Family Medicine; Visit Provider Internal Medicine Medical Oncology | DX: D75.1 Secondary polycythemia (principal) | CPT/HCPCS: 85025 ==

== ENCOUNTER → 2021-10-19 09:08 | Outpatient (BNVA) | payer MEDICARE, SELFPAY | PROVIDERS: PCP Family Medicine; Visit Provider Internal Medicine Critical Care Medicine | DX: I50.33 Acute on chronic diastolic (congestive) heart failure (principal); G47.33 Obstructive sleep apnea (adult) (pediatric); J96.11 Chronic respiratory failure with hypoxia; E66.01 Morbid (severe) obesity due to excess calories; Z87.891 Personal history of nicotine dependence; D47.09 Other mast cell neoplasms of uncertain behavior; I10 Essential (primary) hypertension; K21.9 Gastro-esophageal reflux disease without esophagitis | CPT/HCPCS: 99214 ==

== ENCOUNTER → 2021-10-24 13:46 | Outpatient (BNVA) | payer MEDICARE, SELFPAY | PROVIDERS: PCP Family Medicine; Visit Provider Surgery | DX: Z86.010 Personal history of colon polyps (principal); D36.9 Benign neoplasm, unspecified site; I48.11 Longstanding persistent atrial fibrillation | CPT/HCPCS: 99214 ==

== ENCOUNTER → 2021-11-23 10:34 | Outpatient (BNVA) | payer MEDICARE, SELFPAY | PROVIDERS: PCP Family Medicine; Visit Provider Internal Medicine | DX: E11.22 Type 2 diabetes mellitus with diabetic chronic kidney disease (principal); E11.65 Type 2 diabetes mellitus with hyperglycemia; N18.2 Chronic kidney disease, stage 2 (mild); E11.42 Type 2 diabetes mellitus with diabetic polyneuropathy; E78.2 Mixed hyperlipidemia; I50.33 Acute on chronic diastolic (congestive) heart failure; Z87.891 Personal history of nicotine dependence; Z79.84 Long term (current) use of oral hypoglycemic drugs | CPT/HCPCS: 99214 ==

== ENCOUNTER 2021-12-13 06:27 | Day surgery (SDC) | payer MEDICARE, SELFPAY ==
[2021-12-11 14:42] VITALS: BMI 43.6
[2021-12-13 06:57] VITALS: BP 99/66; PULSE 97; RESP 18; TEMP 36.5; O2SAT 94
[2021-12-13] MEDS: sodium chloride 0.9% 1,000 ML 30 ML IV (07:18)
--- NOTE | 2021-12-13 07:26 | ANES.PREANE2 ---
Pre-Anesthetic Assessment Height/Weight: Height 1.78 m Weight 137.892 kg Temp Pulse Resp BP Pulse Ox 97.7 F 97 18 99/66 94 12/13/21 06:57 12/13/21 06:57 12/13/21 06:57 12/13/21 06:57 12/13/21 06:57 Preop Diagnosis: diagnostic Operation Date: 12/13/21 07:45 Proposed Procedures p Colonoscopy 12647/z86.010(Not Applicable) - Anjel Dalal MD Familial anesthetic complications: None Was Beta Bia taken within 24 hours: N/A Was Clonidine taken within 24 hours: N/A Last intake: Intake Last Liquid Date 12/12/21 Last Liquid Time 23:00 Last Solid Date 12/11/21 Last Solid Time 18:00 Social No alcohol and No tobacco Exam alert, oriented x 3, clear to auscultation bilaterally and regular rate & rhythm Airway Submandibular: within normal limits Cervical ROM: within normal limits Mallampati: Class III Dentition: chipped Comments: Comments: Missing several Pulmonary Sleep Apnea CV/HEM Congestive Heart Failure, Hypertension and Peripheral Vascular Disease -Normal left ventricular cavity size. Normal left ventricular ?systolic function. Left ventricular ejection fraction is ?estimated at 55 %. ?2-No thrombus visualized in the left atrial appendage. ?3-Thickened mitral valve. No mitral valve stenosis. Mild mitral ?valve regurgitation. ?4-There is no pericardial effusion. ?5-No prior transesophageal echocardiogram to compare.? Since ?there is no LV? LA or left atrial appendage thrombus, we will ?proceed with electrical cardioversion (2020) Polycythemia ascending Ao aneurysm Chronic Renal Insufficiency Metabolic Hyperlipidemia and Morbid Obesity Neuropsych Neuropathy Anesthetic Plan ASA status: 3 Anesthesia: MAC Medications/Allergies Home Medications Medication Instructions Recorded Confirmed Last Taken Type albuterol sulfate 90 mcg/actuation 2 puff INHALATION Q6H PRN 07/08/19 12/13/21 12/12/21 History aerosol inhaler (Ventolin HFA) fluticasone furoate 27.5 1 spray INTRANASAL DAILY ml 07/08/19 12/13/21 12/12/21 History mcg/actuation nasal spray,suspension magnesium oxide 400 mg PO DAILY cap 07/08/19 12/13/21 12/11/21 History tamsulosin 0.4 mg capsule 0.4 mg PO BID cap 07/08/19 12/13/21 12/11/21 History dexlansoprazole 60 mg See Rx Instructions .ROUTE 02/02/20 12/13/21 12/12/21 Rx capsule,biphase delayed release .COMPLEX #30 each (Dexilant) finasteride 5 mg tablet 5 mg PO DAILY #30 tab 02/25/20 12/13/21 12/11/21 Rx ropinirole 0.5 mg tablet 1 mg PO TID tab 03/10/20 12/13/21 12/12/21 History hydroxyzine HCl 25 mg tablet 50 mg PO BID PRN tab 07/26/20 12/13/21 12/11/21 History empagliflozin 10 mg tablet 20 mg PO QAM #180 tab 04/07/21 12/13/21 12/10/21 Rx (Jardiance) apixaban 5 mg tablet (Eliquis) 5 mg PO BID #180 tab 07/04/21 12/13/21 12/10/21 Rx carvedilol 25 mg tablet 12.5 mg PO BID #90 tab 07/04/21 12/13/21 12/13/21 Rx furosemide 40 mg tablet 40 mg PO BID #180 tab 07/04/21 12/13/21 12/10/21 Rx metolazone 2.5 mg tablet 2.5 mg PO .every other day tab 07/04/21 12/13/21 12/09/21 History potassium chloride 10 mEq 20 meq PO TID #90 tab 07/04/21 12/13/21 12/12/21 Rx tablet,extended release sertraline 50 mg tablet 100 mg PO DAILY tab 07/04/21 12/13/21 12/12/21 History simvastatin 20 mg tablet 20 mg PO DAILY #90 tab 07/04/21 12/13/21 12/11/21 Rx aspirin 81 mg tablet,delayed 81 mg PO DAILY tab 08/04/21 12/13/21 12/10/21 History release (Adult Low Dose Aspirin) umeclidinium 62.5 mcg-vilanterol See Rx Instructions .ROUTE 09/27/21 12/13/21 12/12/21 Rx 25 mcg/actuation powdr for .COMPLEX #60 ea inhalation (Anoro Ellipta) prednisolone acetate (PF) 1 % eye 1 drp OPHTHALMIC (EYE) BID ml 10/24/21 12/13/21 12/12/21 History drops,suspension blood sugar diagnostic (OneTouch #100 ea 11/15/21 11/23/21 Unknown Rx Ultra Test) lancets 33 gauge (OneTouch Delica #100 ea 11/15/21 11/23/21 Unknown Rx Lancets) semaglutide 1 mg/dose (4 mg/3 mL) 2 mg (1.5 mL) SUBCUT .weekly #24 ml 11/23/21 12/13/21 12/07/21 Rx subcutaneous pen injector (Ozempic) Allergies Allergy/AdvReac Type Severity Reaction Status Date / Time levofloxacin [From Levaquin] Allergy Unknown ADR/ALGY-Fl Verified 12/13/21 06:53 ushing codeine AdvReac Unknown ADR-Blurry Verified 12/13/21 06:53 Vision metaxalone [From Skelaxin] AdvReac Unknown ADR-Blurry Verified 12/13/21 06:53 Vision Current Medications Generic Name Dose Route Start Last Admin Trade Name Freq PRN Reason Stop Dose Admin Sodium Chloride 1,000 mls @ 30 mls/hr 12/13/21 06:45 12/13/21 07:18 Sodium Chloride 0.9% IV 12/14/21 06:44 30 mls/hr .Q24H YAHAIRA Administration PFSH Anesthesia Medical History Ascending aortic aneurysm Atrial fibrillation Diastolic heart failure Elevated PSA GERD (gastroesophageal reflux disease) History of colon polyps HTN (hypertension) Osteoarthritis Surgical History History of cardioversion History of esophagogastroduodenoscopy History of orthopedic surgery S/P appendectomy S/P cholecystectomy Status post colonoscopy with polypectomy Family History Father Diabetes Sepsis Brother Diabetes Cancer stomach; colon Mother Cancer colon; liver Heart failure Social History Smoking and tobacco status: former smoker Quit status (tobacco): has quit using tobacco Year quit tobacco: 2011 - 1PPD x 40 Years Second hand smoke exposure: No Alcohol intake: never Lives independently: Yes Household members: spouse Marital status: Current occupational status: retired History of recent travel: No Leisure activites: reading Current gender identity: Male Data Anesthesia Cardiac Studies: Echocardiogram Ultrasound 07/16/19 Transesophageal Echocardiogram 04/17/21
--- NOTE | 2021-12-13 07:49 | P.HP_ITS ---
Same Day Surgery H&P Indication for Procedure/HPI DATE OF PROCEDURE: December 13, 2021 CHIEF COMPLAINT/INDICATIONFOR SURGICAL PROCEDURE: Colonoscopy PREOP DIAGNOSIS: diagnostic PLANNED PROCEDURE: Operation Date: 12/13/21 07:45 Proposed Procedures p Colonoscopy 08122/z86.010(Not Applicable) - Anjel Dalal MD Medications/Allergies* Home Medications Medication Instructions Recorded Confirmed Type albuterol sulfate 90 mcg/actuation 2 puff INHALATION Q6H PRN 07/08/19 12/13/21 H istory aerosol inhaler (Ventolin HFA) fluticasone furoate 27.5 1 spray INTRANASAL DAILY ml 07/08/19 12/13/21 History mcg/actuation nasal spray,suspension magnesium oxide 400 mg PO DAILY cap 07/08/19 12/13/21 History tamsulosin 0.4 mg capsule 0.4 mg PO BID cap 07/08/19 12/13/21 History ropinirole 0.5 mg tablet 1 mg PO TID tab 03/10/20 12/13/21 History hydroxyzine HCl 25 mg tablet 50 mg PO BID PRN tab 07/26/20 12/13/21 History metolazone 2.5 mg tablet 2.5 mg PO .every other day tab 07/04/21 12/13/21 History sertraline 50 mg tablet 100 mg PO DAILY tab 07/04/21 12/13/21 History aspirin 81 mg tablet,delayed 81 mg PO DAILY tab 08/04/21 12/13/21 History release (Adult Low Dose Aspirin) prednisolone acetate (PF) 1 % eye 1 drp OPHTHALMIC (EYE) BID ml 10/24/21 12/13/21 History drops,suspension Allergies/Adverse Reactions Allergy/AdvReac Type Severity Reaction Status Date / Time levofloxacin [From Levaquin] Allergy Unknown ADR/ALGY-Fl Verified 12/13/21 06:53 ushing codeine AdvReac Unknown ADR-Blurry Verified 12/13/21 06:53 Vision metaxalone [From Skelaxin] AdvReac Unknown ADR-Blurry Verified 12/13/21 06:53 Vision Current Medications: Generic Name Dose Route Start Last Admin Trade Name Freq PRN Reason Stop Dose Admin Sodium Chloride 1,000 mls @ 30 mls/hr 12/13/21 06:45 12/13/21 07:18 Sodium Chloride 0.9% IV 12/14/21 06:44 30 mls/hr .Q24H YAHAIRA Administration Pertinent History/Comorbid Conditions* Medical History (Updated 08/04/21 @ 19:01 by Terry Mason MD) Ascending aortic aneurysm Atrial fibrillation Diastolic heart failure Elevated PSA GERD (gastroesophageal reflux disease) History of colon polyps HTN (hypertension) Osteoarthritis Surgical History (Updated 10/24/21 @ 14:16 by Anjel Dalal MD) History of cardioversion History of esophagogastroduodenoscopy History of orthopedic surgery S/P appendectomy S/P cholecystectomy Status post colonoscopy with polypectomy Family History (Updated 08/05/19 @ 08:58 by Rosalie Babin LPN) Diabetes Father Brother Heart failure Mother Sepsis Father Cancer Brother stomach; colon Mother colon; liver Social History Smoking and tobacco status: former smoker Quit status (tobacco): has quit using tobacco Year quit tobacco: 2011 1PPD x 40 Years Second hand smoke exposure: No Alcohol intake: never Lives independently: Yes Household members: spouse Marital status: Current occupational status: retired History of recent travel: No Leisure activites: reading Current gender identity: Male Pertinent Exam Findings alert, oriented x 3 and regular rate & rhythm Recommendations Surgery/Procedure today Coding Level of Care Code Acute 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
[2021-12-13 08:20] VITALS: BP 113/60; PULSE 97; RESP 16; TEMP 36.8; O2SAT 92
[2021-12-13 08:31] VITALS: BP 102/65; PULSE 96; RESP 18; O2SAT 93
--- NOTE | 2021-12-13 15:04 | ANE.PACU2 ---
Inpatient post-anesthesia follow up: Airway intact: Yes Vital signs: Temperature 98.3 F Pulse Rate 96 Respiratory Rate 18 Blood Pressure 102/65 Pulse Oximetry 93 Oxygen Delivery Me thod Nasal Cannula Oxygen Flow Rate 2 Fraction of Inspir ed Oxygen Hydration adequate: Yes Nausea and vomiting: No Pain level: 1 Mental status: Baseline
== END 2021-12-13 08:47 | disposition home or self-care (01) ==
PROVIDERS: PCP Family Medicine; Visit Provider Surgery
PROC: 0DJD8ZZ Inspection of Lower Intestinal Tract, Via Natural or Artificial Opening Endoscopic (ICD-10-PCS; CPT 45378; principal; 2021-12-13 07:45)
DX: K63.5 Polyp of colon (principal); K64.8 Other hemorrhoids; Z86.010 Personal history of colon polyps; Z79.82 Long term (current) use of aspirin; I48.91 Unspecified atrial fibrillation; I11.0 Hypertensive heart disease with heart failure; I50.30 Unspecified diastolic (congestive) heart failure; I10 Essential (primary) hypertension; M19.90 Unspecified osteoarthritis, unspecified site; K21.9 Gastro-esophageal reflux disease without esophagitis; Z87.891 Personal history of nicotine dependence
CPT/HCPCS: 45380; 88305; J2704; J7030

== ENCOUNTER 2021-12-14 11:37 | Oncology outpatient (recurring) (ONCR) | payer MEDICARE, SELFPAY ==
[2021-12-14 12:28] LABS: Basophils # 0.1 10^3/uL (0.0-0.1); Basophils % 0.8 %; Eosinophils # 0.7 10^3/uL (0.0-0.8); Eosinophils % 4.1 %; Hematocrit 45.2 % (42.0-52.0); Hemoglobin 12.8 g/dL (11.7-16.6); Lymphocytes # 1.4 10^3/uL (0.8-4.8); Mean Corpuscular HGB Conc 28.3 g/dL (30.0-36.0); Mean Corpuscular Hemoglobin 20.2 pg (28.0-34.0); Mean Corpuscular Volume 71.2 fl (80-94); Monocytes # 0.7 10^3/uL (0.2-0.9); Monocytes % 4.5 %; Neutrophils # 12.61 10^3/uL (1.8-7.7); Neutrophils % 79.8 %; Nucleated Red Blood Cells % 0 %; Platelet Count 692 10^3/cmm (130-400); Red Blood Count 6.35 10^6/uL (4.1-5.3); Red Cell Distribution Width 20.8 % (12.1-15.1); White Blood Count 15.8 10^3/uL (4.0-10.0)
[2021-12-14 12:53] LABS: Alanine Aminotransferase 23 U/L (0-41); Albumin Level 4.2 g/dL (3.5-5.2); Alkaline Phosphatase 110 IU/L (40-130); Anion Gap 12.8 (5-19); Aspartate Amino Transferase 17 U/L (0-40); Blood Urea Nitrogen 23 mg/dL (8-23); Calcium 8.5 mg/dL (8.5-10.5); Carbon Dioxide 28 mmol/L (22-29); Chloride 103 mmol/L (98-107); Globulin 2.9 g/dL (1.3-4.6); Glucose 136 mg/dL (65-115); Lactate Dehydrogenase 158 U/L (135-225); Osmolality Calculated 296 mOsm/kg (285-295); Potassium 3.8 mmol/L (3.5-5.1); Sodium 140 mmol/L (136-145); Total Bilirubin 0.5 mg/dL (0.15-1.2); Total Protein 7.1 g/dL (6.6-8.7)
== END 2021-12-21 23:59 | disposition home or self-care (01) ==
PROVIDERS: PCP Family Medicine; Visit Provider Internal Medicine Medical Oncology
DX: D45 Polycythemia vera (principal); D50.9 Iron deficiency anemia, unspecified; R53.83 Other fatigue; L29.9 Pruritus, unspecified; Z79.899 Other long term (current) drug therapy
CPT/HCPCS: 36415; 80053; 83615; 85025; 99214

== ENCOUNTER → 2021-12-27 09:22 | Outpatient (BNVA) | payer MEDICARE, SELFPAY | PROVIDERS: PCP Family Medicine; Visit Provider Surgery | DX: K63.5 Polyp of colon (principal) | CPT/HCPCS: 99212 ==

== ENCOUNTER → 2022-01-04 11:24 | Outpatient (BNVA) | payer MEDICARE, SELFPAY | PROVIDERS: PCP Family Medicine; Visit Provider Internal Medicine Cardiovascular Disease | DX: I25.10 Atherosclerotic heart disease of native coronary artery without angina pectoris (principal); J96.11 Chronic respiratory failure with hypoxia; I50.33 Acute on chronic diastolic (congestive) heart failure; E11.65 Type 2 diabetes mellitus with hyperglycemia | CPT/HCPCS: 80048; 83880 ==

== ENCOUNTER 2022-01-11 14:13 | Oncology outpatient (recurring) (ONCR) | payer MEDICARE, SELFPAY ==
[2022-01-11 13:56] LABS: Basophils # 0.1 10^3/uL (0.0-0.1); Eosinophils # 0.5 10^3/uL (0.0-0.8); Hematocrit 46.4 % (42.0-52.0); Hemoglobin 13.1 g/dL (11.7-16.6); Lymphocytes # 1.7 10^3/uL (0.8-4.8); Mean Corpuscular HGB Conc 28.2 g/dL (30.0-36.0); Mean Corpuscular Hemoglobin 20.4 pg (28.0-34.0); Mean Corpuscular Volume 72.3 fl (80-94); Mean Platelet Volume 9.8 fL (7.4-10.4); Monocytes # 0.6 10^3/uL (0.2-0.9); Monocytes % 4.6 %; Neutrophils # 10.11 10^3/uL (1.8-7.7); Neutrophils % 75.8 %; Nucleated Red Blood Cells % 0 %; Platelet Count 348 10^3/cmm (130-400); Red Blood Count 6.42 10^6/uL (4.1-5.3); Red Cell Distribution Width 21.4 % (12.1-15.1); White Blood Count 13.3 10^3/uL (4.0-10.0)
[2022-01-11 14:21] LABS: Alanine Aminotransferase 32 U/L (0-41); Albumin Level 4.4 g/dL (3.5-5.2); Alkaline Phosphatase 116 IU/L (40-130); Anion Gap 12.2 (5-19); Aspartate Amino Transferase 22 U/L (0-40); Blood Urea Nitrogen 31 mg/dL (8-23); Calcium 8.5 mg/dL (8.5-10.5); Carbon Dioxide 27 mmol/L (22-29); Chloride 103 mmol/L (98-107); Globulin 2.7 g/dL (1.3-4.6); Glomerular Filtration Rate 66.4 mL/min (90-130); Glucose 148 mg/dL (65-115); Osmolality Calculated 295 mOsm/kg (285-295); Potassium 4.2 mmol/L (3.5-5.1); Sodium 138 mmol/L (136-145); Total Bilirubin 0.4 mg/dL (0.15-1.2); Total Protein 7.1 g/dL (6.6-8.7)
== END 2022-01-21 23:59 | disposition home or self-care (01) ==
PROVIDERS: Nurse Practitioner Family; PCP Family Medicine; Visit Provider Internal Medicine Medical Oncology
DX: D45 Polycythemia vera (principal); R53.83 Other fatigue; L29.9 Pruritus, unspecified; Z79.899 Other long term (current) drug therapy; D50.9 Iron deficiency anemia, unspecified
CPT/HCPCS: 80053; 85025; 99214

== ENCOUNTER 2022-01-17 09:37 | Outpatient (CLI) | payer MEDICARE, SELFPAY ==
--- NOTE | 2022-01-17 | ECG_ITS ---
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 Interpretive Statements NAME OF STUDY: LEXISCAN SESTAMIBI STRESS TEST INDICATION: Shortness of Breath PROCEDURE: At the baseline, the EKG revealed normal sinus rhythm with some nonspecific T wave changes. Early transition of R waves. The baseline blood pressure was 118/73 mm Hg with a heart rate of 70 beats/min. Lexiscan was infused over a period of 20 seconds. A total of 0.4 milligrams of Lexiscan was infused. The stress phase was continued for a total of 5 minutes. Heart rate at the end of the stress phase was 96 with a blood pressure 119/69. The EKG at the peak infusion revealed no significant changes. Sestamibi was injected 20 seconds after the Lexiscan infusion. Blood pressure at the end of the recovery phase was 102/69 with a heart rate of 85 per minute. CONCLUSION: 1. No significant EKG changes with the LexiScan infusion 2. No LexiScan induced chest pain or cardiac arrhythmia 3. Normal blood pressure and heart rate response 4. Sestamibi/sestamibi perfusion scan pending; see separate report. Electronically Signed On 02-08-2022 23:01:23 CDT by Sanjuana Quick M.D. [id number]
[2022-01-17 10:59] VITALS: BMI 43.6
--- NOTE | 2022-01-17 11:01 | NMCV_ITS ---
NM sergio perf SPECT r/s* [id number] Seferino Rashid Age: 71 Gender: M : 1950 Exam Date: 01/17/2022 11:21 Ordering Phys: Sanjuana Quick MD ([email or web address]) Technologist: ALONSO Douglass Exam Location: [facility] Indications: Chest pain STRESS TEST Please see separate stress test report in [facility] for full findings IMAGE PROTOCOL Rest/Stress 1 Lexiscan Day Radiopharmaceutical Dose (mCi) Administration Site Administered by Rest: Tc-99m 10.7 IV ALONSO Douglass Sestamibi Stress:Tc-99m 33 IV ALONSO Douglass Sestamimarco Rest: 17-Jan-2022 60 Discovery 630 Stress: 17-Jan-2022 30 Discovery 630 0.4mg Lexiscan. Supine position only as patient was unable to lay prone. SPECT RESULTS Technical Quality: Good Raw Data Analysis: Normal Image Corrections: No attenuation or motion correction applied Summed Stress Score: 5 Summed Rest Score: 13 Summed Difference Score: 0 PERFUSION FINDINGS Moderate area of moderately decreased tracer uptake was noted in the basal and mid inferolateral and apical lateral wall segments. No significant reversibility was noted in these regions at rest. FUNCTIONAL RESULTS (calculated via Gated SPECT) Stress Image LV EF (%): 58 Stress EDV (mL):155 TID: 0.88 Stress ESV (mL):65 FUNCTIONAL FINDINGS: Segmental wall motion analysis revealing no gross wall motion normalities. IMPRESSIONS 1. Myocardial perfusion imaging revealing moderate area of moderately decreased persistent tracer uptake in the basal and mid inferolateral and apical lateral wall regions, suggesting myocardial scarring versus attenuation artifact. 2. Normal LV ejection fraction 50%. 3. LV wall motion analysis revealing no gross wall motion normalities. 4. Mildly dilated LV cavity with an end-systolic volume of 65 mm Low probability for coronary ischemia, based on the above findings Dr Sanjuana Quick MD FACC (Electronically Signed) Final Date: 17 January 2022 18:35 S
[2022-01-17] MEDS: regadenoson 0.4 Mg/5 ml Syringe IVP (11:57)
[2022-01-17] MEDS: ondansetron 2 mg/ML SDV 2 mL 4 MG IVP (12:11)
[2022-01-17 12:14] VITALS: BP 102/69; PULSE 85
== END 2022-01-17 09:38 | disposition home or self-care (01) ==
LOC: CDL 09:40
PROVIDERS: PCP Family Medicine; Visit Provider Internal Medicine Cardiovascular Disease
DX: R06.02 Shortness of breath (principal); R53.83 Other fatigue; R07.9 Chest pain, unspecified
CPT/HCPCS: 78452; 93017; A9500; J2405; J2785

== ENCOUNTER → 2022-01-22 14:46 | Outpatient (BNVA) | payer MEDICARE, SELFPAY | PROVIDERS: PCP Family Medicine; Visit Provider Internal Medicine Cardiovascular Disease | DX: I25.10 Atherosclerotic heart disease of native coronary artery without angina pectoris (principal); I50.33 Acute on chronic diastolic (congestive) heart failure; J96.11 Chronic respiratory failure with hypoxia; E11.65 Type 2 diabetes mellitus with hyperglycemia | CPT/HCPCS: 80048; 83880 ==

== ENCOUNTER 2022-01-30 15:54 | Outpatient (CLI) | payer MEDICARE, SELFPAY ==
--- NOTE | 2022-01-30 16:00 | CT_ITS ---
WS: [id number] CTA THORACIC AORTA WITH AND WITHOUT CONTRAST. HISTORY: I50.33 - Acute on chronic diastolic (congestive) heart failure. TECHNIQUE: CT imaging of the thorax is performed with and without contrast. After noncontrast imaging is performed, CT angiogram is performed during injection of Omnipaque 350; 95 mL IV.. Sagittal and c oronal reconstructions, sagittal and coronal MIP imaging is submitted. All CT scans at [facility] use at least one of these dose optimization techniques: automated exposure control; mA and/or kV adjustment per patient size (includes targeted exams where dose is matched to clinical indication); or iterative reconstruction. DLP: 1221.76 mGy.cm COMPARISON: 12/22/[address] chest 07/26/2017 Ascending thoracic aorta is 4.2 cm. Similar to prior studies. The appearance of the aortic root is si milar to the prior examinations also. Mild atherosclerotic changes involving the aortic arch and desc ending aorta. Normal diameter of the descending aorta is 2.7 cm. There is no dissection. Very small a mount of plaque involving the great vessels but no occlusions. Pulmonary artery size is enlarged measuring 4.8 cm. Proximal pulmonary arteries are normal size. No p ericardial or pleural effusions. Lungs are clear. No pulmonary nodule or mass. No pneumonia. No media stinal or hilar adenopathy. No hiatal hernia. Prior cholecystectomy. Mild hepatic steatosis visualized liver. Mild thoracic curvature and diffuse spondylitic changes. CT/CT angio chest 58082 IMPRESSION: 1. Very minimal dilatation of the ascending thoracic aorta to 4.2 cm. No dillon e since 01/30/2016. 2. Mild atherosclerosis aorta. 3. Pulmonary hypertension, similar to the prior study from 2015. 4. Mild scattered coronary artery calcifications.
[2022-01-30] MEDS: iohexol 350 mg/mL 100 mL Btl IV (16:19)
== END 2022-01-30 15:55 | disposition home or self-care (01) ==
LOC: RAD 15:55
PROVIDERS: PCP Family Medicine; Visit Provider Internal Medicine Cardiovascular Disease
DX: I50.33 Acute on chronic diastolic (congestive) heart failure (principal); I70.0 Atherosclerosis of aorta; I27.20 Pulmonary hypertension, unspecified; I25.10 Atherosclerotic heart disease of native coronary artery without angina pectoris
CPT/HCPCS: 71275

== ENCOUNTER 2022-02-08 14:06 | Oncology outpatient (recurring) (ONCR) | payer MEDICARE, SELFPAY ==
[2022-02-08 14:30] LABS: Basophils # 0.1 10^3/uL (0.0-0.1); Basophils % 1.1 %; Eosinophils # 0.4 10^3/uL (0.0-0.8); Eosinophils % 3.2 %; Hematocrit 48.4 % (42.0-52.0); Hemoglobin 13.8 g/dL (11.7-16.6); Lymphocytes # 1.3 10^3/uL (0.8-4.8); Lymphocytes % 11.7 %; Mean Corpuscular HGB Conc 28.5 g/dL (30.0-36.0); Mean Corpuscular Hemoglobin 21.8 pg (28.0-34.0); Mean Corpuscular Volume 76.6 fl (80-94); Mean Platelet Volume 9.5 fL (7.4-10.4); Monocytes # 0.6 10^3/uL (0.2-0.9); Monocytes % 5.7 %; Neutrophils # 8.37 10^3/uL (1.8-7.7); Neutrophils % 77.6 %; Nucleated Red Blood Cells % 0 %; Platelet Count 239 10^3/cmm (130-400); Red Blood Count 6.32 10^6/uL (4.1-5.3); Red Cell Distribution Width 26.6 % (12.1-15.1); White Blood Count 10.8 10^3/uL (4.0-10.0)
[2022-02-08 14:48] LABS: Alanine Aminotransferase 30 U/L (0-41); Albumin Level 4.3 g/dL (3.5-5.2); Alkaline Phosphatase 123 U/L (40-130); Anion Gap 14.9 (5-19); Aspartate Amino Transferase 21 U/L (0-40); Blood Urea Nitrogen 23 mg/dL (8-23); Calcium 8.7 mg/dL (8.5-10.5); Carbon Dioxide 26 mmol/L (22-29); Chloride 104 mmol/L (98-107); Globulin 2.9 g/dL (1.3-4.6); Glucose 126 mg/dL (65-115); Lactate Dehydrogenase 148 U/L (135-225); Osmolality Calculated 295 mOsm/kg (285-295); Potassium 4.9 mmol/L (3.5-5.1); Sodium 140 mmol/L (136-145); Total Bilirubin 0.6 mg/dL (0.15-1.2); Total Protein 7.2 g/dL (6.6-8.7)
== END 2022-02-21 23:59 | disposition home or self-care (01) ==
PROVIDERS: PCP Family Medicine; Visit Provider Internal Medicine Medical Oncology
DX: D45 Polycythemia vera (principal); R53.83 Other fatigue; L29.9 Pruritus, unspecified; Z79.899 Other long term (current) drug therapy
CPT/HCPCS: 80053; 83615; 85025; 99214

== ENCOUNTER 2022-02-22 11:39 | Outpatient (CLI) | payer MEDICARE, SELFPAY ==
[2022-02-22 12:43] LABS: Estmated Average Glucose 134; Hemoglobin A1C 6.3 % (4.0-6.0)
[2022-02-22 12:50] LABS: Creatinine Urine, Random 102 mg/dL (39-259); Microalbum Creatinine Ratio Ur 29 mg/dL (0-20); Microalbumin Random Urine 3 ug/dL (0-20)
[2022-02-22 12:54] LABS: Alanine Aminotransferase 29 U/L (0-41); Albumin Level 4.2 g/dL (3.5-5.2); Alkaline Phosphatase 116 U/L (40-130); Anion Gap 12.6 (5-19); Aspartate Amino Transferase 21 U/L (0-40); Blood Urea Nitrogen 22 mg/dL (8-23); Calcium 8.6 mg/dL (8.5-10.5); Carbon Dioxide 24 mmol/L (22-29); Chloride 105 mmol/L (98-107); Chol HDL Ratio 3.82 mg/dL (1.0-5.00); Cholesterol 84 mg/dL (0-200); Globulin 2.6 g/dL (1.3-4.6); Glomerular Filtration Rate 66.4 mL/min (90-130); Glucose 160 mg/dL (65-115); HDL Cholesterol 22 mg/dL (60-100); LDL Cholesterol Calculated 32 mg/dL (50-129); LDL HDL Ratio 1.45 RATIO (0.00-3.22); Osmolality Calculated 291 mOsm/kg (285-295); Potassium 4.6 mmol/L (3.5-5.1); Sodium 137 mmol/L (136-145); Total Bilirubin 0.5 mg/dL (0.15-1.2); Total Protein 6.8 g/dL (6.6-8.7); Triglycerides 149 mg/dL (0-150)
== END 2022-02-22 11:40 | disposition home or self-care (01) ==
LOC: LAB 11:42
PROVIDERS: PCP Family Medicine; Visit Provider Internal Medicine
DX: E11.22 Type 2 diabetes mellitus with diabetic chronic kidney disease (principal); N18.2 Chronic kidney disease, stage 2 (mild); E11.65 Type 2 diabetes mellitus with hyperglycemia; E78.2 Mixed hyperlipidemia
CPT/HCPCS: 80053; 80061; 82044; 83036

== ENCOUNTER → 2022-03-01 10:24 | Outpatient (BNVA) | payer MEDICARE, SELFPAY | PROVIDERS: PCP Family Medicine; Visit Provider Internal Medicine | DX: E11.42 Type 2 diabetes mellitus with diabetic polyneuropathy (principal); E11.22 Type 2 diabetes mellitus with diabetic chronic kidney disease; N18.2 Chronic kidney disease, stage 2 (mild); E78.2 Mixed hyperlipidemia; I50.33 Acute on chronic diastolic (congestive) heart failure; Z87.891 Personal history of nicotine dependence | CPT/HCPCS: 99214 ==

== ENCOUNTER 2022-03-16 09:31 | Oncology outpatient (recurring) (ONCR) | payer MEDICARE, SELFPAY ==
[2022-03-16 09:55] LABS: Basophils # 0.1 10^3/uL (0.0-0.1); Basophils % 0.7 %; Eosinophils # 0.5 10^3/uL (0.0-0.8); Eosinophils % 3.9 %; Hematocrit 46.4 % (42.0-52.0); Hemoglobin 13.8 g/dL (11.7-16.6); Lymphocytes # 1.3 10^3/uL (0.8-4.8); Lymphocytes % 9.3 %; Mean Corpuscular HGB Conc 29.7 g/dL (30.0-36.0); Mean Corpuscular Hemoglobin 25.3 pg (28.0-34.0); Mean Corpuscular Volume 85.1 fl (80-94); Mean Platelet Volume 9.3 fL (7.4-10.4); Monocytes # 0.7 10^3/uL (0.2-0.9); Monocytes % 5.2 %; Neutrophils # 10.77 10^3/uL (1.8-7.7); Neutrophils % 79.4 %; Nucleated Red Blood Cells % 0 %; Platelet Count 420 10^3/cmm (130-400); Red Blood Count 5.45 10^6/uL (4.1-5.3); Red Cell Distribution Width 30.6 % (12.1-15.1); White Blood Count 13.6 10^3/uL (4.0-10.0)
[2022-03-16] MEDS: sodium chloride 0.9% 250 ML 500 ML IV (10:30)
[2022-03-16 10:59] VITALS: BP 96/60; PULSE 76; RESP 18; TEMP 36.4; O2SAT 93
== END 2022-03-23 23:59 | disposition home or self-care (01) ==
PROVIDERS: PCP Family Medicine; Visit Provider Internal Medicine Medical Oncology
DX: D45 Polycythemia vera (principal)
CPT/HCPCS: 36415; 85025; 96365; 99195; J7050

== ENCOUNTER 2022-04-23 10:33 | Oncology outpatient (recurring) (ONCR) | payer MEDICARE, SELFPAY ==
[2022-04-23 11:01] LABS: Basophils # 0.1 10^3/uL (0.0-0.1); Eosinophils # 0.3 10^3/uL (0.0-0.8); Hematocrit 43.2 % (42.0-52.0); Hemoglobin 13.2 g/dL (11.7-16.6); Lymphocytes # 1.1 10^3/uL (0.8-4.8); Lymphocytes % 9.8 %; Mean Corpuscular HGB Conc 30.6 g/dL (30.0-36.0); Mean Corpuscular Hemoglobin 28.3 pg (28.0-34.0); Mean Corpuscular Volume 92.5 fl (80-94); Mean Platelet Volume 9.6 fL (7.4-10.4); Monocytes # 0.5 10^3/uL (0.2-0.9); Neutrophils # 9.06 10^3/uL (1.8-7.7); Neutrophils % 81.1 %; Nucleated Red Blood Cells % 0 %; Platelet Count 261 10^3/cmm (130-400); Red Blood Count 4.67 10^6/uL (4.1-5.3); Red Cell Distribution Width 23.2 % (12.1-15.1); White Blood Count 11.2 10^3/uL (4.0-10.0)
== END 2022-04-23 23:59 | disposition home or self-care (01) ==
PROVIDERS: PCP Family Medicine; Visit Provider Internal Medicine Medical Oncology
DX: D45 Polycythemia vera (principal)
CPT/HCPCS: 36415; 85025

== ENCOUNTER → 2022-04-26 10:02 | Outpatient (BNVA) | payer MEDICARE, SELFPAY | PROVIDERS: PCP Family Medicine; Visit Provider Internal Medicine Pulmonary Disease | DX: G47.33 Obstructive sleep apnea (adult) (pediatric) (principal); J96.11 Chronic respiratory failure with hypoxia; I50.33 Acute on chronic diastolic (congestive) heart failure; E66.01 Morbid (severe) obesity due to excess calories; Z12.2 Encounter for screening for malignant neoplasm of respiratory organs; Z87.891 Personal history of nicotine dependence; Z68.41 Body mass index [BMI] 40.0-44.9, adult | CPT/HCPCS: 99214 ==

== ENCOUNTER → 2022-05-29 12:43 | Outpatient (BNVA) | payer MEDICARE, SELFPAY | PROVIDERS: PCP Family Medicine; Visit Provider Nurse Practitioner Family | DX: I25.10 Atherosclerotic heart disease of native coronary artery without angina pectoris (principal); I48.11 Longstanding persistent atrial fibrillation; Z79.01 Long term (current) use of anticoagulants; Z87.891 Personal history of nicotine dependence; I13.0 Hypertensive heart and chronic kidney disease with heart failure and stage 1 through stage 4 chronic kidney disease, or unspecified chronic kidney disease; E11.22 Type 2 diabetes mellitus with diabetic chronic kidney disease; N18.9 Chronic kidney disease, unspecified; Z79.85 Long-term (current) use of injectable non-insulin antidiabetic drugs; I50.33 Acute on chronic diastolic (congestive) heart failure | CPT/HCPCS: 99214 ==

== ENCOUNTER 2022-06-08 08:53 | Oncology outpatient (recurring) (ONCR) | payer MEDICARE, SELFPAY ==
[2022-06-08 09:13] LABS: Basophils # 0.1 10^3/uL (0.0-0.1); Basophils % 0.8 %; Eosinophils # 0.4 10^3/uL (0.0-0.8); Eosinophils % 2.7 %; Hematocrit 45.3 % (42.0-52.0); Hemoglobin 13.6 g/dL (11.7-16.6); Lymphocytes # 1.2 10^3/uL (0.8-4.8); Lymphocytes % 8.3 %; Mean Corpuscular Hemoglobin 30.2 pg (28.0-34.0); Mean Corpuscular Volume 100.7 fl (80-94); Mean Platelet Volume 9.7 fL (7.4-10.4); Monocytes # 0.8 10^3/uL (0.2-0.9); Monocytes % 5.5 %; Neutrophils # 11.78 10^3/uL (1.8-7.7); Neutrophils % 81.4 %; Nucleated Red Blood Cells % 0 %; Platelet Count 377 10^3/cmm (130-400); Red Cell Distribution Width 15.7 % (12.1-15.1); White Blood Count 14.5 10^3/uL (4.0-10.0)
[2022-06-08 09:33] LABS: Alanine Aminotransferase 33 U/L (0-41); Albumin Level 3.7 g/dL (3.5-5.2); Alkaline Phosphatase 118 U/L (40-130); Anion Gap 10.5 (5-19); Aspartate Amino Transferase 21 U/L (0-40); Blood Urea Nitrogen 27 mg/dL (8-23); Calcium 8.8 mg/dL (8.5-10.5); Carbon Dioxide 29 mmol/L (22-29); Chloride 102 mmol/L (98-107); Globulin 3.4 g/dL (1.3-4.6); Glomerular Filtration Rate 50.2 mL/min (90-130); Glucose 130 mg/dL (65-115); Lactate Dehydrogenase 160 U/L (135-225); Osmolality Calculated 291 mOsm/kg (285-295); Potassium 4.5 mmol/L (3.5-5.1); Sodium 137 mmol/L (136-145); Total Bilirubin 0.5 mg/dL (0.15-1.2); Total Protein 7.1 g/dL (6.6-8.7)
== END 2022-06-23 23:59 | disposition home or self-care (01) ==
PROVIDERS: PCP Family Medicine; Visit Provider Internal Medicine Medical Oncology
DX: D45 Polycythemia vera (principal); D50.9 Iron deficiency anemia, unspecified; R53.83 Other fatigue; L29.9 Pruritus, unspecified; Z79.899 Other long term (current) drug therapy; Z87.891 Personal history of nicotine dependence
CPT/HCPCS: 80053; 83615; 85025; 99214

== ENCOUNTER 2022-07-31 10:04 | Outpatient (CLI) | payer MEDICARE, SELFPAY ==
[2022-07-31 11:12] LABS: Chol HDL Ratio 4.37 mg/dL (1.0-5.00); Cholesterol 118 mg/dL (0-200); HDL Cholesterol 27 mg/dL (60-100); LDL Cholesterol Calculated 52 mg/dL (50-129); LDL HDL Ratio 1.93 RATIO (0.00-3.22); Triglycerides 193 mg/dL (0-150)
[2022-07-31 11:50] LABS: Estmated Average Glucose 123; Hemoglobin A1C 5.9 % (4.0-6.0)
== END 2022-07-31 10:05 | disposition home or self-care (01) ==
LOC: LAB 10:07
PROVIDERS: PCP Family Medicine; Visit Provider Internal Medicine
DX: E11.22 Type 2 diabetes mellitus with diabetic chronic kidney disease (principal); N18.2 Chronic kidney disease, stage 2 (mild); E78.2 Mixed hyperlipidemia; G62.9 Polyneuropathy, unspecified; E11.65 Type 2 diabetes mellitus with hyperglycemia; E11.42 Type 2 diabetes mellitus with diabetic polyneuropathy; I13.0 Hypertensive heart and chronic kidney disease with heart failure and stage 1 through stage 4 chronic kidney disease, or unspecified chronic kidney disease; Z87.891 Personal history of nicotine dependence; Z79.84 Long term (current) use of oral hypoglycemic drugs
CPT/HCPCS: 36415; 80061; 83036; 99214

== ENCOUNTER 2022-09-28 08:19 | Oncology outpatient (recurring) (ONCR) | payer MEDICARE, SELFPAY ==
[2022-09-28 08:52] LABS: Basophils # 0.1 10^3/uL (0.0-0.1); Basophils % 0.7 %; Eosinophils # 0.3 10^3/uL (0.0-0.8); Eosinophils % 3.1 %; Hematocrit 45.2 % (42.0-52.0); Hemoglobin 14.1 g/dL (11.7-16.6); Lymphocytes # 1.2 10^3/uL (0.8-4.8); Lymphocytes % 11.6 %; Mean Corpuscular HGB Conc 31.2 g/dL (30.0-36.0); Mean Corpuscular Hemoglobin 32.6 pg (28.0-34.0); Mean Corpuscular Volume 104.6 fl (80-94); Mean Platelet Volume 9.9 fL (7.4-10.4); Monocytes # 0.7 10^3/uL (0.2-0.9); Monocytes % 6.8 %; Neutrophils # 7.83 10^3/uL (1.8-7.7); Nucleated Red Blood Cells % 0 %; Platelet Count 310 10^3/cmm (130-400); Red Blood Count 4.32 10^6/uL (4.1-5.3); Red Cell Distribution Width 15.1 % (12.1-15.1); White Blood Count 10.2 10^3/uL (4.0-10.0)
[2022-09-28 09:13] LABS: Alanine Aminotransferase 27 U/L (0-41); Alkaline Phosphatase 118 U/L (40-130); Anion Gap 14.5 (5-19); Aspartate Amino Transferase 18 U/L (0-40); Blood Urea Nitrogen 23 mg/dL (8-23); Calcium 8.6 mg/dL (8.5-10.5); Carbon Dioxide 25 mmol/L (22-29); Chloride 103 mmol/L (98-107); Globulin 2.8 g/dL (1.3-4.6); Glomerular Filtration Rate 54.6 mL/min (90-130); Glucose 163 mg/dL (65-115); Lactate Dehydrogenase 168 U/L (135-225); Osmolality Calculated 293 mOsm/kg (285-295); Potassium 4.5 mmol/L (3.5-5.1); Sodium 138 mmol/L (136-145); Total Bilirubin 0.6 mg/dL (0.15-1.2); Total Protein 6.8 g/dL (6.6-8.7)
== END 2022-10-21 23:59 | disposition home or self-care (01) ==
PROVIDERS: PCP Family Medicine; Visit Provider Internal Medicine Medical Oncology
DX: D45 Polycythemia vera (principal); R53.83 Other fatigue; L29.9 Pruritus, unspecified; Z79.899 Other long term (current) drug therapy; D50.9 Iron deficiency anemia, unspecified; Z79.82 Long term (current) use of aspirin
CPT/HCPCS: 36415; 80053; 83615; 85025; 99214

== ENCOUNTER → 2022-10-26 10:40 | Outpatient (BNVA) | payer MEDICARE, SELFPAY | PROVIDERS: PCP Family Medicine; Visit Provider Internal Medicine | DX: E11.22 Type 2 diabetes mellitus with diabetic chronic kidney disease (principal); N18.2 Chronic kidney disease, stage 2 (mild); E11.65 Type 2 diabetes mellitus with hyperglycemia; E78.2 Mixed hyperlipidemia | CPT/HCPCS: 80053; 80061; 83036 ==

== ENCOUNTER → 2022-10-30 10:47 | Outpatient (BNVA) | payer MEDICARE, SELFPAY | PROVIDERS: PCP Family Medicine; Visit Provider Internal Medicine | DX: R11.0 Nausea (principal); R32 Unspecified urinary incontinence; G47.33 Obstructive sleep apnea (adult) (pediatric); J96.11 Chronic respiratory failure with hypoxia; I50.33 Acute on chronic diastolic (congestive) heart failure; E66.01 Morbid (severe) obesity due to excess calories; Z68.41 Body mass index [BMI] 40.0-44.9, adult; Z87.891 Personal history of nicotine dependence; R19.7 Diarrhea, unspecified; J30.9 Allergic rhinitis, unspecified; E11.22 Type 2 diabetes mellitus with diabetic chronic kidney disease; E11.65 Type 2 diabetes mellitus with hyperglycemia; E11.42 Type 2 diabetes mellitus with diabetic polyneuropathy; N18.30 Chronic kidney disease, stage 3 unspecified; Z79.84 Long term (current) use of oral hypoglycemic drugs | CPT/HCPCS: 36415; 81003; 82785; 83690; 86003; 99214 ==

== ENCOUNTER 2022-11-29 10:53 | Outpatient (CLI) | payer MEDICARE, SELFPAY ==
[2022-11-29 11:15] VITALS: PULSE 98; RESP 18; O2SAT 94
[2022-11-29] MEDS: albuterol 2.5 mg/3 mL Neb INHALATION (11:15)
[2022-11-29 11:20] VITALS: PULSE 99
== END 2022-11-29 10:54 | disposition home or self-care (01) ==
LOC: RT 10:55
PROVIDERS: PCP Family Medicine; Visit Provider Internal Medicine Pulmonary Disease
DX: R06.02 Shortness of breath (principal); Z87.891 Personal history of nicotine dependence; R94.2 Abnormal results of pulmonary function studies
CPT/HCPCS: 94060; 94618; 94726; 94729; J7613

== ENCOUNTER → 2022-12-13 14:44 | Outpatient (BNVA) | payer MEDICARE, SELFPAY | PROVIDERS: PCP Family Medicine; Visit Provider Specialist | DX: I48.11 Longstanding persistent atrial fibrillation (principal); I50.33 Acute on chronic diastolic (congestive) heart failure; E78.2 Mixed hyperlipidemia; G47.33 Obstructive sleep apnea (adult) (pediatric); Z87.891 Personal history of nicotine dependence; I13.0 Hypertensive heart and chronic kidney disease with heart failure and stage 1 through stage 4 chronic kidney disease, or unspecified chronic kidney disease; E11.22 Type 2 diabetes mellitus with diabetic chronic kidney disease; N18.9 Chronic kidney disease, unspecified; Z79.84 Long term (current) use of oral hypoglycemic drugs; Z79.01 Long term (current) use of anticoagulants | CPT/HCPCS: 99214 ==

== ENCOUNTER 2022-12-28 08:59 | Oncology outpatient (recurring) (ONCR) | payer MEDICARE, SELFPAY ==
[2022-12-28 09:45] VITALS: BP 107/69; PULSE 56; RESP 18; TEMP 35.8; O2SAT 94
[2022-12-28 09:49] LABS: Basophils # 0.1 10^3/uL (0.0-0.1); Eosinophils # 0.3 10^3/uL (0.0-0.8); Eosinophils % 2.5 %; Hematocrit 45.2 % (42.0-52.0); Hemoglobin 13.8 g/dL (11.7-16.6); Lymphocytes % 8.8 %; Mean Corpuscular HGB Conc 30.5 g/dL (30.0-36.0); Mean Corpuscular Hemoglobin 31.4 pg (28.0-34.0); Mean Corpuscular Volume 102.7 fl (80-94); Mean Platelet Volume 9.8 fL (7.4-10.4); Monocytes # 0.6 10^3/uL (0.2-0.9); Monocytes % 5.3 %; Neutrophils # 9.21 10^3/uL (1.8-7.7); Neutrophils % 81.5 %; Nucleated Red Blood Cells % 0 %; Platelet Count 262 10^3/cmm (130-400); Red Cell Distribution Width 16.1 % (12.1-15.1); White Blood Count 11.3 10^3/uL (4.0-10.0)
[2022-12-28 10:11] LABS: Alanine Aminotransferase 22 U/L (0-41); Albumin Level 4.2 g/dL (3.5-5.2); Alkaline Phosphatase 111 U/L (40-130); Anion Gap 13.8 (5-19); Aspartate Amino Transferase 18 U/L (0-40); Blood Urea Nitrogen 29 mg/dL (8-23); Calcium 8.7 mg/dL (8.5-10.5); Carbon Dioxide 26 mmol/L (22-29); Chloride 101 mmol/L (98-107); Globulin 2.7 g/dL (1.3-4.6); Glucose 137 mg/dL (65-115); Lactate Dehydrogenase 239 U/L (135-225); Osmolality Calculated 290 mOsm/kg (285-295); Potassium 4.8 mmol/L (3.5-5.1); Sodium 136 mmol/L (136-145); Total Bilirubin 0.6 mg/dL (0.15-1.2); Total Protein 6.9 g/dL (6.6-8.7)
== END 2023-01-21 23:59 | disposition home or self-care (01) ==
PROVIDERS: PCP Family Medicine; Visit Provider Internal Medicine Medical Oncology
DX: D45 Polycythemia vera (principal); D50.9 Iron deficiency anemia, unspecified; R53.83 Other fatigue; L29.9 Pruritus, unspecified; Z79.82 Long term (current) use of aspirin; Z79.899 Other long term (current) drug therapy
CPT/HCPCS: 36415; 80053; 83615; 85025; 99214

== ENCOUNTER → 2023-01-01 13:33 | Outpatient (BNVA) | payer MEDICARE, SELFPAY | PROVIDERS: PCP Family Medicine; Visit Provider Internal Medicine Pulmonary Disease | DX: J96.11 Chronic respiratory failure with hypoxia (principal); G47.33 Obstructive sleep apnea (adult) (pediatric); I50.33 Acute on chronic diastolic (congestive) heart failure; E66.01 Morbid (severe) obesity due to excess calories; Z87.891 Personal history of nicotine dependence; I27.20 Pulmonary hypertension, unspecified; Z68.41 Body mass index [BMI] 40.0-44.9, adult; Z99.81 Dependence on supplemental oxygen | CPT/HCPCS: 99214 ==

== ENCOUNTER → 2023-01-30 08:41 | Outpatient (BNVA) | payer MEDICARE, SELFPAY | PROVIDERS: PCP Family Medicine; Visit Provider Internal Medicine | DX: E11.22 Type 2 diabetes mellitus with diabetic chronic kidney disease (principal) | CPT/HCPCS: 80053; 80061; 82043; 83036 ==

== ENCOUNTER → 2023-01-31 09:53 | Outpatient (BNVA) | payer MEDICARE, SELFPAY | PROVIDERS: PCP Family Medicine; Visit Provider Internal Medicine | DX: E11.22 Type 2 diabetes mellitus with diabetic chronic kidney disease; N18.2 Chronic kidney disease, stage 2 (mild); E78.2 Mixed hyperlipidemia; E11.65 Type 2 diabetes mellitus with hyperglycemia; R11.0 Nausea; R32 Unspecified urinary incontinence; E11.42 Type 2 diabetes mellitus with diabetic polyneuropathy; Z79.84 Long term (current) use of oral hypoglycemic drugs | CPT/HCPCS: 99214 ==

== ENCOUNTER 2023-05-02 08:57 | Oncology outpatient (recurring) (ONCR) | payer MEDICARE, SELFPAY ==
[2023-05-02 09:15] VITALS: BP 109/69; PULSE 83; RESP 18; TEMP 36.6; O2SAT 94
[2023-05-02 09:39] LABS: Basophils # 0.1 10^3/uL (0.0-0.1); Basophils % 0.8 %; Eosinophils # 0.3 10^3/uL (0.0-0.8); Eosinophils % 2.8 %; Hematocrit 43.7 % (37-53); Lymphocytes # 1.2 10^3/uL (0.8-4.8); Lymphocytes % 11.4 %; Mean Corpuscular HGB Conc 31.8 g/dL (30-55); Mean Corpuscular Hemoglobin 34.3 pg (27-33); Mean Corpuscular Volume 107.9 fl (82-101); Mean Platelet Volume 10.3 fL (7.4-10.4); Monocytes # 0.4 10^3/uL (0.2-0.9); Monocytes % 3.7 %; Neutrophils # 8.16 10^3/uL (1.8-7.7); Neutrophils % 80.3 %; Nucleated Red Blood Cells % 0 %; Platelet Count 203 10^3/cmm (157-399); Red Blood Count 4.05 10^6/uL (3.85-5.65); Red Cell Distribution Width 14.6 % (12.1-15.1); White Blood Count 10.16 10^3/uL (3.29-11.43)
[2023-05-02 09:54] LABS: Estmated Average Glucose 131; Hemoglobin A1C 6.2 % (4.0-6.0)
[2023-05-02 10:01] LABS: Alanine Aminotransferase 23 U/L (0-41); Alkaline Phosphatase 116 U/L (40-130); Anion Gap 16.4 (5-19); Aspartate Amino Transferase 18 U/L (0-40); Blood Urea Nitrogen 27 mg/dL (8-23); Calcium 8.6 mg/dL (8.5-10.5); Carbon Dioxide 24 mmol/L (22-29); Chloride 103 mmol/L (98-107); Chol HDL Ratio 3.52 mg/dL (1.0-5.00); Cholesterol 88 mg/dL (0-200); Globulin 2.9 g/dL (1.3-4.6); Glomerular Filtration Rate 46.3 mL/min (90-130); Glucose 181 mg/dL (65-115); HDL Cholesterol 25 mg/dL (60-100); LDL Cholesterol Calculated 34 mg/dL (50-129); LDL HDL Ratio 1.36 RATIO (0.00-3.22); Osmolality Calculated 298 mOsm/kg (285-295); Potassium 4.4 mmol/L (3.5-5.1); Sodium 139 mmol/L (136-145); Total Bilirubin 0.5 mg/dL (0.15-1.2); Total Protein 6.9 g/dL (6.6-8.7); Triglycerides 145 mg/dL (0-150)
[2023-05-02 10:09] LABS: Creatinine Urine, Random 99 mg/dL (39-259); Microalbumin Random Urine 5 ug/dL (0-20)
[2023-05-02 10:10] LABS: Microalbum Creatinine Ratio Ur 51 mg/dL (0-20)
== END 2023-05-23 23:59 | disposition home or self-care (01) ==
PROVIDERS: Internal Medicine; Internal Medicine Medical Oncology; PCP Family Medicine; Visit Provider Internal Medicine Medical Oncology
DX: D45 Polycythemia vera (principal); D50.9 Iron deficiency anemia, unspecified; R53.83 Other fatigue; L29.9 Pruritus, unspecified; Z79.82 Long term (current) use of aspirin; Z79.899 Other long term (current) drug therapy
CPT/HCPCS: 36415; 80053; 80061; 82044; 83036; 85025; 99214

== ENCOUNTER → 2023-06-27 09:40 | Outpatient (BNVA) | payer MEDICARE, SELFPAY | PROVIDERS: PCP Family Medicine; Visit Provider Internal Medicine | DX: E11.65 Type 2 diabetes mellitus with hyperglycemia; E11.22 Type 2 diabetes mellitus with diabetic chronic kidney disease; E11.42 Type 2 diabetes mellitus with diabetic polyneuropathy; N18.2 Chronic kidney disease, stage 2 (mild); M17.10 Unilateral primary osteoarthritis, unspecified knee; E78.2 Mixed hyperlipidemia; R11.0 Nausea; R32 Unspecified urinary incontinence; I48.11 Longstanding persistent atrial fibrillation; I13.0 Hypertensive heart and chronic kidney disease with heart failure and stage 1 through stage 4 chronic kidney disease, or unspecified chronic kidney disease; I50.33 Acute on chronic diastolic (congestive) heart failure; N18.9 Chronic kidney disease, unspecified; I71.21 Aneurysm of the ascending aorta, without rupture; Z87.891 Personal history of nicotine dependence; Z79.84 Long term (current) use of oral hypoglycemic drugs; Z79.01 Long term (current) use of anticoagulants | CPT/HCPCS: 99214 ==

== ENCOUNTER → 2023-07-25 10:56 | Outpatient (BNVA) | payer MEDICARE, SELFPAY | PROVIDERS: PCP Family Medicine; Visit Provider Physician Assistant | DX: M17.0 Bilateral primary osteoarthritis of knee; Z46.89 Encounter for fitting and adjustment of other specified devices; M25.561 Pain in right knee | CPT/HCPCS: 20610; 73560; 73565; 97760; 99203; J3301; L1851 ==

== ENCOUNTER 2023-07-25 15:37 | Outpatient (CLI) | payer MEDICARE, SELFPAY | END 2023-07-25 15:38 | disposition home or self-care (01) | LOC: SPT 15:37 | PROVIDERS: PCP Family Medicine; Visit Provider Physician Assistant | DX: Z46.89 Encounter for fitting and adjustment of other specified devices (principal); M25.561 Pain in right knee | CPT/HCPCS: 97760; L1851 ==

== ENCOUNTER 2023-08-01 11:53 | Oncology outpatient (recurring) (ONCR) | payer MEDICARE, SELFPAY ==
[2023-08-01 12:32] LABS: Basophils # 0.1 10^3/uL (0.0-0.1); Basophils % 0.5 %; Eosinophils # 0.3 10^3/uL (0.0-0.8); Eosinophils % 2.6 %; Hematocrit 46.9 % (37-53); Lymphocytes # 1.1 10^3/uL (0.8-4.8); Mean Corpuscular HGB Conc 32.4 g/dL (30-55); Mean Corpuscular Hemoglobin 35.8 pg (27-33); Mean Corpuscular Volume 110.6 fl (82-101); Mean Platelet Volume 9.9 fL (7.4-10.4); Monocytes # 0.7 10^3/uL (0.2-0.9); Monocytes % 5.4 %; Neutrophils # 10.39 10^3/uL (1.8-7.7); Neutrophils % 81.6 %; Nucleated Red Blood Cells % 0 %; Platelet Count 273 10^3/cmm (157-399); Red Blood Count 4.24 10^6/uL (3.85-5.65); Red Cell Distribution Width 15.6 % (12.1-15.1); White Blood Count 12.72 10^3/uL (3.29-11.43)
[2023-08-01 13:07] LABS: Alanine Aminotransferase 24 U/L (0-41); Albumin Level 3.8 g/dL (3.5-5.2); Alkaline Phosphatase 103 U/L (40-130); Anion Gap 14.1 (5-19); Aspartate Amino Transferase 14 U/L (0-40); Blood Urea Nitrogen 37 mg/dL (8-23); Calcium 8.4 mg/dL (8.5-10.5); Carbon Dioxide 24 mmol/L (22-29); Chloride 103 mmol/L (98-107); Glucose 108 mg/dL (65-115); Osmolality Calculated 291 mOsm/kg (285-295); Potassium 5.1 mmol/L (3.5-5.1); Sodium 136 mmol/L (136-145); Total Bilirubin 0.7 mg/dL (0.15-1.2); Total Protein 6.8 g/dL (6.6-8.7)
[2023-08-01 14:45] VITALS: BP 111/71; PULSE 88; RESP 16; O2SAT 91
[2023-08-01] MEDS: sodium chloride 0.9% 250 ML 999 ML IV (15:08)
[2023-08-01 15:32] VITALS: BP 101/66; PULSE 67; RESP 16; TEMP 36.6; O2SAT 94
== END 2023-08-22 23:59 | disposition home or self-care (01) ==
PROVIDERS: Nurse Practitioner Family; PCP Family Medicine; Visit Provider Internal Medicine Medical Oncology
DX: D45 Polycythemia vera (principal); D50.9 Iron deficiency anemia, unspecified; Z79.82 Long term (current) use of aspirin; Z79.899 Other long term (current) drug therapy; Z79.64 Long term (current) use of myelosuppressive agent; I50.9 Heart failure, unspecified; M17.11 Unilateral primary osteoarthritis, right knee
CPT/HCPCS: 36415; 80053; 85025; 96365; 99195; 99214; J7050

== ENCOUNTER → 2023-09-26 10:49 | Outpatient (BNVA) | payer MEDICARE, SELFPAY | PROVIDERS: PCP Family Medicine; Visit Provider Internal Medicine | DX: E11.22 Type 2 diabetes mellitus with diabetic chronic kidney disease (principal); N18.2 Chronic kidney disease, stage 2 (mild); E78.2 Mixed hyperlipidemia; E11.65 Type 2 diabetes mellitus with hyperglycemia; R11.0 Nausea; R32 Unspecified urinary incontinence; E11.42 Type 2 diabetes mellitus with diabetic polyneuropathy; Z79.84 Long term (current) use of oral hypoglycemic drugs; Z79.85 Long-term (current) use of injectable non-insulin antidiabetic drugs | CPT/HCPCS: 99214 ==

== ENCOUNTER → 2023-10-24 09:29 | Outpatient (BNVA) | payer MEDICARE, SELFPAY | PROVIDERS: PCP Family Medicine; Visit Provider Physician Assistant | DX: M17.0 Bilateral primary osteoarthritis of knee | CPT/HCPCS: 99213 ==

== ENCOUNTER → 2023-11-12 16:22 | Outpatient (BNVA) | payer MEDICARE, SELFPAY | PROVIDERS: PCP Family Medicine; Visit Provider Family Medicine | DX: Z12.5 Encounter for screening for malignant neoplasm of prostate (principal); N40.1 Benign prostatic hyperplasia with lower urinary tract symptoms; E11.65 Type 2 diabetes mellitus with hyperglycemia; E11.22 Type 2 diabetes mellitus with diabetic chronic kidney disease; I10 Essential (primary) hypertension; E78.2 Mixed hyperlipidemia | CPT/HCPCS: 80053; 80061; 83036; 84443; 85025; G0103 ==

== ENCOUNTER 2023-12-16 13:41 | Oncology outpatient (recurring) (ONCR) | payer MEDICARE, SELFPAY ==
[2023-12-16 13:58] LABS: Basophils # 0.1 10^3/uL (0.0-0.1); Basophils % 0.9 %; Eosinophils # 0.3 10^3/uL (0.0-0.8); Hematocrit 43.3 % (37-53); Lymphocytes # 1.1 10^3/uL (0.8-4.8); Lymphocytes % 9.6 %; Mean Corpuscular HGB Conc 33.5 g/dL (30-55); Mean Corpuscular Hemoglobin 40.1 pg (27-33); Mean Corpuscular Volume 119.6 fl (82-101); Mean Platelet Volume 9.1 fL (7.4-10.4); Monocytes # 0.7 10^3/uL (0.2-0.9); Monocytes % 6.3 %; Neutrophils # 8.67 10^3/uL (1.8-7.7); Neutrophils % 79.4 %; Nucleated Red Blood Cells % 0 %; Platelet Count 273 10^3/cmm (157-399); Red Blood Count 3.62 10^6/uL (3.85-5.65); Red Cell Distribution Width 13.4 % (12.1-15.1); White Blood Count 10.93 10^3/uL (3.29-11.43)
[2023-12-16 14:18] LABS: Alanine Aminotransferase 28 U/L (0-41); Albumin Level 4.1 g/dL (3.5-5.2); Alkaline Phosphatase 116 U/L (40-130); Aspartate Amino Transferase 23 U/L (0-40); Blood Urea Nitrogen 23 mg/dL (8-23); Calcium 8.8 mg/dL (8.5-10.5); Carbon Dioxide 25 mmol/L (22-29); Chloride 106 mmol/L (98-107); Glucose 83 mg/dL (65-115); Osmolality Calculated 291 mOsm/kg (285-295); Sodium 139 mmol/L (136-145); Total Bilirubin 0.5 mg/dL (0.15-1.2); Total Protein 7.1 g/dL (6.6-8.7)
[2023-12-16 16:09] LABS: Ferritin 30 ng/mL (30-400); Iron 56 ug/dL (59-158); Percent Saturation 17.9 % (20-50); Total Iron Binding Capacity 312 mcg/dl; Unsaturated Iron Binding 256 ug/dL (112-347)
== END 2023-12-22 23:59 | disposition home or self-care (01) ==
PROVIDERS: PCP Family Medicine; Visit Provider Internal Medicine Medical Oncology
DX: D45 Polycythemia vera (principal); I11.0 Hypertensive heart disease with heart failure; I50.33 Acute on chronic diastolic (congestive) heart failure; E61.1 Iron deficiency; Z87.891 Personal history of nicotine dependence; Z79.899 Other long term (current) drug therapy; Z79.64 Long term (current) use of myelosuppressive agent
CPT/HCPCS: 36415; 80053; 82728; 83540; 83550; 85025; 99214

== ENCOUNTER → 2024-01-02 10:39 | Outpatient (BNVA) | payer MEDICARE, SELFPAY | PROVIDERS: PCP Family Medicine; Visit Provider Internal Medicine Cardiovascular Disease | DX: I48.11 Longstanding persistent atrial fibrillation (principal); I50.33 Acute on chronic diastolic (congestive) heart failure; I10 Essential (primary) hypertension; R06.02 Shortness of breath | CPT/HCPCS: 36415; 80048; 83880; 93005 ==

== ENCOUNTER → 2024-01-09 10:01 | Outpatient (BNVA) | payer MEDICARE, SELFPAY | PROVIDERS: PCP Family Medicine; Visit Provider Internal Medicine Critical Care Medicine | DX: R13.19 Other dysphagia (principal); E66.01 Morbid (severe) obesity due to excess calories; K21.9 Gastro-esophageal reflux disease without esophagitis; J96.11 Chronic respiratory failure with hypoxia; J98.4 Other disorders of lung; I27.20 Pulmonary hypertension, unspecified; I50.33 Acute on chronic diastolic (congestive) heart failure; I48.11 Longstanding persistent atrial fibrillation; G47.33 Obstructive sleep apnea (adult) (pediatric); Z68.41 Body mass index [BMI] 40.0-44.9, adult; E11.22 Type 2 diabetes mellitus with diabetic chronic kidney disease; N18.9 Chronic kidney disease, unspecified | CPT/HCPCS: 99214 ==

== ENCOUNTER → 2024-01-17 08:30 | Outpatient (BNVA) | payer MEDICARE, SELFPAY | PROVIDERS: PCP Family Medicine; Visit Provider Surgery | DX: K21.9 Gastro-esophageal reflux disease without esophagitis (principal); R13.19 Other dysphagia; Z90.49 Acquired absence of other specified parts of digestive tract | CPT/HCPCS: 99214 ==

== ENCOUNTER 2024-01-23 12:10 | Day surgery (SDC) | payer MEDICARE, SELFPAY ==
[2024-01-23 12:39] VITALS: BP 97/67; PULSE 89; RESP 16; TEMP 36.4; O2SAT 95; BMI 44.7
[2024-01-23] MEDS: sodium chloride 0.9% 1,000 ML 30 ML IV (12:51)
[2024-01-23 12:57] LABS: Glucose Point of Care 129 mg/dL (70-110)
--- NOTE | 2024-01-23 13:35 | ANES.PREANE2 ---
Pre-Anesthetic Assessment Height/Weight: Height 1.78 m Weight 141.521 kg Temp Pulse Resp BP Pulse Ox O2 Del Method 97.6 F 89 16 97/67 95 Room Air 01/23/24 12:39 01/23/24 12:39 01/23/24 12:39 01/23/24 12:39 01/23/24 12:39 01/23/24 12:39 Preop Diagnosis: difficulty swallowing Operation Date: 01/23/24 13:30 Proposed Procedures p EGD Dilation W/ Balloon 81666, K21.9, R13.19(Not Applicable) - Jasmeet Powers DO Familial anesthetic complications: none Was Beta Bia taken within 24 hours: Yes Was Clonidine taken within 24 hours: N/A Last intake: Intake Last Liquid Date 01/23/24 Last Liquid Time 08:30 Last Solid Date 01/22/24 Last Solid Time 18:30 Social No alcohol and No tobacco Exam alert, oriented x 3, clear to auscultation bilaterally and regular rate & rhythm Airway Submandibular: within normal limits Cervical ROM: within normal limits Mallampati: Class II Comments: Comments: missing several teeeth top and bottom History/ROS No significant history except as noted and No significant complaints Pulmonary Sleep Apnea CPAP CV/HEM Atrial Fibrillation, Congestive Heart Failure and Hypertension Kidney Stones Hepatic None reported GI Gastroesophageal Reflux Disease Metabolic Diabetes Mellitus [facility] None reported Neuropsych None reported Anesthetic Plan ASA status: 4 Anesthesia: MAC Risk of > 500 ml blood loss (7ml/kg in children): No Other Pertinent Information none Medications/Allergies Home Medications Medication Instructions Recorded Confirmed Last Taken Type albuterol sulfate 90 mcg/actuation 2 puff inhalation Q6H PRN 07/08/19 01/21/24 01/21/24 History aerosol inhaler (Ventolin HFA) Shortness Of Breath hydroxyzine HCl 25 mg tablet 50 mg PO BID PRN Itching 07/26/20 01/21/24 01/18/24 History blood sugar diagnostic (Relion #100 ea 03/06/22 01/17/24 Unknown Rx Confirm-Micro strips) blood-glucose meter (ReliOn Micro #1 ea 03/06/22 01/17/24 Unknown Rx Glucose Monitor kit) nebulizers #1 ea 06/22/22 01/17/24 Unknown Rx cetirizine 10 mg tablet (Zyrtec) 10 mg PO DAILY 09/28/22 01/21/24 01/21/24 History diphenhydramine HCl 25 mg tablet 25 mg PO DAILY 09/28/22 01/21/24 01/20/24 History (Benadryl Allergy) lancets 33 gauge (Joannebrenna Pratt #100 ea 11/30/22 01/17/24 Unknown Rx Plus Lancet) gabapentin 100 mg capsule 100 mg PO DAILY 01/31/23 01/21/24 01/19/24 History aspirin 325 mg tablet 325 mg PO DAILY 05/02/23 01/21/24 01/19/24 History carvedilol 25 mg tablet 25 mg PO DIRECTED 06/27/23 01/21/24 01/23/24 History 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, 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 #1 ea 07/25/23 01/17/24 Unknown Rx apixaban 5 mg tablet (Eliquis) 5 mg PO BID #180 tabs 10/11/23 01/21/24 01/19/24 Rx finasteride 5 mg tablet 5 mg PO DAILY #90 tabs 11/12/23 01/21/24 01/20/24 Rx magnesium oxide 400 mg PO DAILY #90 caps 11/12/23 01/21/24 01/20/24 Rx tamsulosin 0.4 mg capsule 0.4 mg PO BID #180 caps 11/12/23 01/21/24 01/20/24 Rx blood sugar diagnostic ([facility] 11/26/23 01/17/24 Unknown Rx Ultra Test strips) ipratropium 0.5 mg-albuterol 3 mg 3 ml inhalation Q4H PRN wheezing 12/09/23 01/21/24 2 Months Ago Rx (2.5 mg base)/3 mL nebulization #180 mL ~11/21/23 soln ropinirole 0.5 mg tablet 1 mg (2 x 0.5 mg) PO TID #90 tabs 12/09/23 01/21/24 01/20/24 Rx metolazone 2.5 mg tablet 2.5 mg PO .every other day #90 tabs 12/10/23 01/21/24 01/20/24 Rx spironolactone 25 mg tablet 25 mg PO DAILY #90 tabs 01/02/24 01/21/24 01/20/24 Rx fluticasone propionate 50 2 spray intranasal DAILY PRN allegy 01/09/24 01/21/24 01/20/24 History mcg/actuation nasal spray,suspension fluticasone propionate 50 1 spray intranasal Q12H chronic 01/09/24 01/21/24 01/20/24 Rx mcg/actuation nasal rhinitis #16 grams spray,suspension (Flonase Allergy Relief) furosemide 40 mg tablet 40 mg PO DAILY weight gain #120 01/13/24 01/21/24 01/20/24 Rx tabs pantoprazole 40 mg tablet,delayed 40 mg PO BID 6 weeks #84 tabs 01/17/24 01/21/24 01/21/24 Rx release (Protonix) empagliflozin 10 mg tablet 20 mg PO DAILY 01/21/24 01/21/24 01/21/24 History (Jardiance) hydroxyurea 500 mg capsule 500 mg PO BID 01/21/24 01/21/24 01/20/24 History potassium chloride 10 mEq See Rx Instructions .Route 01/21/24 Unknown Rx tablet,extended release .COMPLEX #180 tabs semaglutide 2 mg/dose (8 mg/3 mL) 2 mg SUBCUT DIRECTED 01/21/24 01/21/24 01/16/24 History subcutaneous pen injector (Ozempic) sertraline 50 mg tablet 100 mg PO DAILY 01/21/24 01/21/24 01/21/24 History simvastatin 20 mg tablet 20 mg PO DAILY 01/21/24 01/21/24 01/20/24 History umeclidinium 62.5 mcg-vilanterol 1 inh inhalation DAILY 01/21/24 01/21/24 01/20/24 History 25 mcg/actuation powdr for inhalation (Anoro Ellipta) Allergies Allergy/AdvReac Type Severity Reaction Status Date / Time levofloxacin [From Levaquin] Allergy Unknown ADR/ALGY-Fl Verified 01/17/24 08:35 ushing codeine AdvReac Unknown ADR-Blurry Verified 01/17/24 08:35 Vision metaxalone [From Skelaxin] AdvReac Unknown ADR-Blurry Verified 01/17/24 08:35 Vision Current Medications Generic Name Dose Route Start Last Admin Trade Name Freq PRN Reason Stop Dose Admin Sodium Chloride 1,000 mls @ 30 mls/hr 01/23/24 12:30 01/23/24 12:51 Sodium Chloride 0.9% IV 01/24/24 12:29 30 mls/hr .Q24H YAHAIRA Administration PFSH Anesthesia Medical History Restrictive lung disease Pulmonary hypertension Type 2 diabetes mellitus Hyperlipidemia PRV (polycythemia rubra vera) 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 Peripheral neuropathy History of colon polyps Obstructive sleep apnea Elevated PSA GERD (gastroesophageal reflux disease) Osteoarthritis Ascending aortic aneurysm Atrial fibrillation Diastolic heart failure HTN (hypertension) Surgical History Hx of bilateral cataract extraction History of cardioversion History of esophagogastroduodenoscopy Status post colonoscopy with polypectomy History of orthopedic surgery S/P appendectomy S/P cholecystectomy Family History Father Diabetes Sepsis Bleeding disorder Clotting disorder Brother Diabetes Cancer stomach; colon Mother Cancer colon; liver Heart failure CAD (coronary artery disease) 50s Lung disease Grandfather Dementia Denies family history of Chronic kidney disease (CKD) Suicide Anesthesia complication Stroke Social History Smoking and tobacco/nicotine status: former use of tobacco/nicotine Quit status (tobacco/nicotine): has quit using Year quit tobacco: 2011 - 1PPD x 40 Years Second hand smoke exposure: No Alcohol intake: never Substance/Drug Use: never Lives independently: Yes Household members: spouse Marital status: Current occupational status: retired Leisure activites: reading Do you think of yourself as: Straight/Heterosexual Current gender identity: Male Data Anesthesia Cardiac Studies: Echocardiogram Ultrasound 07/16/19 Transesophageal Echocardiogram 04/17/21 Sestamibi Stress Test (Cardiology) 01/17/22
--- NOTE | 2024-01-23 14:51 | W.PM.OPSUD ---
Surgery/Procedure H&P Update DATE OF PROCEDURE: January 23, 2024 DATE H&P PERFORMED: 01/17/24 H&P UPDATE INFORMATION: I have reviewed H&P completed within last 30 days, I have examined patient prior to procedure and No changes to prior documentation PREOP DIAGNOSIS: difficulty swallowing PLANNED PROCEDURE: Operation Date: 01/23/24 13:30 Proposed Procedures p EGD Dilation W/ Balloon 23695, K21.9, R13.19(Not Applicable) - Jasmeet Powers DO
[2024-01-23 15:08] VITALS: BP 119/64; PULSE 103; RESP 14; TEMP 36.3; O2SAT 96
[2024-01-23 15:14] VITALS: O2SAT 95
[2024-01-23 15:30] VITALS: BP 105/57; PULSE 95; RESP 18; O2SAT 94
--- NOTE | 2024-01-23 15:45 | ANE.PACU2 ---
Inpatient post-anesthesia follow up: Airway intact: Yes Vital signs: Temperature 97.4 F Pulse Rate 95 Respiratory Rate 18 Blood Pressure 105/57 Pulse Oximetry 94 Oxygen Delivery Me thod Room Air Oxygen Flow Rate 10 Fraction of Inspir ed Oxygen Hydration adequate: Yes Nausea and vomiting: No Pain level: 1 Mental status: Baseline
== END 2024-01-23 15:44 | disposition home or self-care (01) ==
PROVIDERS: PCP Family Medicine; Visit Provider Surgery
DX: R13.19 Other dysphagia (principal); K21.9 Gastro-esophageal reflux disease without esophagitis; K22.2 Esophageal obstruction; K29.50 Unspecified chronic gastritis without bleeding; G47.30 Sleep apnea, unspecified; I48.91 Unspecified atrial fibrillation; I11.0 Hypertensive heart disease with heart failure; I50.30 Unspecified diastolic (congestive) heart failure; E11.9 Type 2 diabetes mellitus without complications; G47.33 Obstructive sleep apnea (adult) (pediatric); E78.5 Hyperlipidemia, unspecified; Z87.891 Personal history of nicotine dependence
CPT/HCPCS: 36416; 43239; 43249; 82962; 88305; 88342; J2704; J7030

== ENCOUNTER 2024-01-30 08:18 | Outpatient (CLI) | payer MEDICARE, SELFPAY ==
--- NOTE | 2024-01-30 08:30 | FL_ITS ---
WS: [id number] FL barium swallow gastro [id number] REASON FOR EXAM: Difficulty with swallowing. Sensation of food or liquid getting stuck at the sternal level. FLUOROSCOPY TIME: 3min [id number] # OF SPOT FILMS: Multiple FINDINGS: Patient was examined in the upright PA and lateral, prone SHETTY, supine, and LPO positions. The swallow ing of barium was monitored fluoroscopically and recorded with multiple rapid sequence spot films. Th is study extended from the oropharynx to the fundus of the stomach. The cervical esophagus demonstrated normal motility and anatomy. No aspiration was observed. In the thoracic esophagus there was intermittent weakening of the primary peristaltic wave with incom plete emptying of the esophagus. Intermittently there were mild tertiary contractions. There was a small hiatal hernia. No significant reflux was elicited. There was intermittent spasm of the lower esophageal sphincter. FL/FL barium swallow gastro [id number] IMPRESSION: Esophageal dysmotility as above. Achalasia type II.
== END 2024-01-30 08:19 | disposition home or self-care (01) ==
LOC: RAD 08:19
PROVIDERS: PCP Family Medicine; Visit Provider Internal Medicine Critical Care Medicine
DX: R13.19 Other dysphagia (principal); R06.09 Other forms of dyspnea; E66.01 Morbid (severe) obesity due to excess calories; K44.9 Diaphragmatic hernia without obstruction or gangrene
CPT/HCPCS: 74220

== ENCOUNTER → 2024-02-28 10:13 | Outpatient (BNVA) | payer MEDICARE, SELFPAY | PROVIDERS: PCP Family Medicine; Visit Provider Student in an Organized Health Care Education/Training Program | DX: M17.0 Bilateral primary osteoarthritis of knee (principal) | CPT/HCPCS: 99214 ==

== ENCOUNTER 2024-03-19 13:07 | Oncology outpatient (recurring) (ONCR) | payer MEDICARE, SELFPAY ==
[2024-03-19 13:35] LABS: Basophils # 0.1 10^3/uL (0.0-0.1); Basophils % 0.7 %; Eosinophils # 0.2 10^3/uL (0.0-0.8); Eosinophils % 1.8 %; Hematocrit 44.4 % (37-53); Lymphocytes # 1.2 10^3/uL (0.8-4.8); Lymphocytes % 11.9 %; Mean Corpuscular HGB Conc 33.8 g/dL (30-55); Mean Corpuscular Hemoglobin 39.3 pg (27-33); Mean Corpuscular Volume 116.2 fl (82-101); Mean Platelet Volume 9.6 fL (7.4-10.4); Monocytes # 0.7 10^3/uL (0.2-0.9); Monocytes % 7.2 %; Neutrophils # 7.63 10^3/uL (1.8-7.7); Neutrophils % 77.5 %; Nucleated Red Blood Cells % 0 %; Platelet Count 297 10^3/cmm (157-399); Red Blood Count 3.82 10^6/uL (3.85-5.65); Red Cell Distribution Width 12.8 % (12.1-15.1); White Blood Count 9.85 10^3/uL (3.29-11.43)
[2024-03-19 13:53] LABS: Creatinine Urine, Random 82 mg/dL (39-259); Microalbum Creatinine Ratio Ur 12 mg/dL (0-20); Microalbumin Random Urine 1 ug/dL (0-20)
[2024-03-19 13:55] LABS: Alanine Aminotransferase 29 U/L (0-41); Alkaline Phosphatase 114 U/L (40-130); Anion Gap 15.6 (5-19); Aspartate Amino Transferase 21 U/L (0-40); Blood Urea Nitrogen 35 mg/dL (8-23); Calcium 8.7 mg/dL (8.5-10.5); Carbon Dioxide 24 mmol/L (22-29); Chloride 100 mmol/L (98-107); Chol HDL Ratio 4.27 mg/dL (1.0-5.00); Cholesterol 94 mg/dL (0-200); Globulin 3.1 g/dL (1.3-4.6); Glucose 121 mg/dL (65-115); HDL Cholesterol 22 mg/dL (60-100); LDL Cholesterol Calculated 38 mg/dL (50-129); LDL HDL Ratio 1.73 RATIO (0.00-3.22); Osmolality Calculated 289 mOsm/kg (285-295); Potassium 4.6 mmol/L (3.5-5.1); Sodium 135 mmol/L (136-145); Total Bilirubin 0.6 mg/dL (0.15-1.2); Total Protein 7.1 g/dL (6.6-8.7); Triglycerides 169 mg/dL (0-150)
[2024-03-19 14:06] LABS: Estmated Average Glucose 120; Hemoglobin A1C 5.8 % (4.0-6.0)
[2024-03-19 16:04] LABS: Iron 55 ug/dL (59-158); Percent Saturation 17.5 % (20-50); Total Iron Binding Capacity 314 mcg/dl; Unsaturated Iron Binding 259 ug/dL (112-347)
== END 2024-03-23 23:59 | disposition home or self-care (01) ==
PROVIDERS: Internal Medicine; Nurse Practitioner Family; PCP Family Medicine; Visit Provider Internal Medicine Medical Oncology
DX: D45 Polycythemia vera (principal); D50.9 Iron deficiency anemia, unspecified; Z79.82 Long term (current) use of aspirin; Z79.899 Other long term (current) drug therapy; Z79.64 Long term (current) use of myelosuppressive agent; N18.2 Chronic kidney disease, stage 2 (mild); E11.22 Type 2 diabetes mellitus with diabetic chronic kidney disease; E78.2 Mixed hyperlipidemia; Z87.891 Personal history of nicotine dependence; K59.00 Constipation, unspecified
CPT/HCPCS: 36415; 80053; 80061; 82044; 83036; 83540; 83550; 85025; 99214

== ENCOUNTER → 2024-03-27 11:25 | Outpatient (BNVA) | payer MEDICARE, SELFPAY | PROVIDERS: PCP Family Medicine; Visit Provider Internal Medicine | DX: E78.2 Mixed hyperlipidemia (principal); E11.65 Type 2 diabetes mellitus with hyperglycemia; E11.22 Type 2 diabetes mellitus with diabetic chronic kidney disease; N18.2 Chronic kidney disease, stage 2 (mild); E11.42 Type 2 diabetes mellitus with diabetic polyneuropathy; R11.0 Nausea; R32 Unspecified urinary incontinence; N17.9 Acute kidney failure, unspecified; Z79.84 Long term (current) use of oral hypoglycemic drugs; Z79.85 Long-term (current) use of injectable non-insulin antidiabetic drugs | CPT/HCPCS: 99214 ==

== ENCOUNTER → 2024-04-09 16:30 | Outpatient (BNVA) | payer MEDICARE, SELFPAY | PROVIDERS: PCP Family Medicine; Visit Provider Physician Assistant | DX: Z01.818 Encounter for other preprocedural examination (principal) | CPT/HCPCS: 36415; 80053; 81001; 83036; 85025; 99213 ==

== ENCOUNTER 2024-04-14 10:34 | Outpatient (CLI) | payer MEDICARE, SELFPAY ==
--- NOTE | 2024-04-14 11:00 | CT_ITS ---
WS: [id number] CT LEFT KNEE, NONCONTRAST TECHNIQUE: Noncontrast CT of the LEFT knee to include the LEFT hip and ankle. CLINICAL INFORMATION: LEFT KNEE DJD COMPARISON: None. DLP: 1543.[address] scans at [facility] use at least one of these dose optimization techniques: automated e xposure control; mA and/or kV adjustment per patient size (includes targeted exams where dose is matc hed to clinical indication); or iterative reconstruction. FINDINGS: Advanced degenerative arthritis LEFT knee with joint space narrowing worse in the medial joint compar tment. Osteopenia. Hypertrophic changes along the joint line. Tiny suprapatellar effusion. Hypertrophic patella. Vascular calcification. Enlarged prostate measurin g 5.1 cm. Recommend correlation PSA. Tiny fat-containing umbilical hernia. CT/CT knee [facility] [id number] IMPRESSION: Images obtained for preoperative purposes.
== END 2024-04-14 10:35 | disposition home or self-care (01) ==
LOC: RAD 10:35
PROVIDERS: PCP Family Medicine; Visit Provider Student in an Organized Health Care Education/Training Program
DX: Z01.818 Encounter for other preprocedural examination (principal); M17.12 Unilateral primary osteoarthritis, left knee; M85.80 Other specified disorders of bone density and structure, unspecified site
CPT/HCPCS: 73700

== ENCOUNTER 2024-04-27 14:40 | Observation (INO) | payer MEDICARE, SELFPAY ==
[2024-04-27] VITALS (18 sets, daily range): BP systolic 92–125; BP diastolic 49–84; PULSE 56–73; RESP 13–22; TEMP 36.1–36.9; O2SAT 91–97; BMI 44.0
[2024-04-27] MEDS: lactated ringers 500 ML IV (09:43)
[2024-04-27] MEDS: ketorolac 30 mg/mL INJ IVP (09:43)
[2024-04-27] MEDS: acetaminophen 1,000 MG/100 ML PIGGYBACK 400 MG IV ×2 (09:44→17:19)
[2024-04-27 10:04] LABS: Glucose Point of Care 132 mg/dL (70-110)
--- NOTE | 2024-04-27 10:05 | W.PM.OPSUD ---
Surgery/Procedure H&P Update DATE OF PROCEDURE: April 27, 2024 DATE H&P PERFORMED: 04/08/24 H&P UPDATE INFORMATION: I have reviewed H&P completed within last 30 days, I have examined patient prior to procedure and No changes to prior documentation CHANGES TO PREVIOUS DOCUMENTATION: Patient's been medically optimized through her preoperative clinic and ready to proceed with surgical intervention today no change in overall health since last visit. PREOP DIAGNOSIS: Left knee degenerative joint disease PRIMARY INDICATION FOR PROCEDURE: Left knee degenerative joint disease PLANNED PROCEDURE: Operation Date: 04/27/24 10:35 Proposed Procedures p Joni Robot Total Knee Arthroplasty(Left) - Jason Wilkins DO
[2024-04-27 10:08] LABS: Basophils # 0.1 10^3/uL (0.0-0.1); Basophils % 0.8 %; Eosinophils # 0.3 10^3/uL (0.0-0.8); Eosinophils % 2.8 %; Hematocrit 44.2 % (37-53); Lymphocytes # 1.1 10^3/uL (0.8-4.8); Lymphocytes % 10.9 %; Mean Corpuscular HGB Conc 33.3 g/dL (30-55); Mean Corpuscular Hemoglobin 38.7 pg (27-33); Mean Corpuscular Volume 116.3 fl (82-101); Mean Platelet Volume 9.9 fL (7.4-10.4); Monocytes # 0.7 10^3/uL (0.2-0.9); Monocytes % 6.8 %; Neutrophils # 7.89 10^3/uL (1.8-7.7); Neutrophils % 77.5 %; Nucleated Red Blood Cells % 0 %; Platelet Count 297 10^3/cmm (157-399); Red Cell Distribution Width 13.2 % (12.1-15.1); White Blood Count 10.18 10^3/uL (3.29-11.43)
--- NOTE | 2024-04-27 10:14 | P.ANESASSM_ITS ---
Pre-Anesthetic Assessment Height/Weight: Height 1.78 m Weight 139.253 kg Temp Pulse Resp BP Pulse Ox O2 Del Method 97.3 F L 64 18 117/67 93 Room Air 04/27/24 09:44 04/27/24 09:44 04/27/24 09:44 04/27/24 09:44 04/27/24 09:44 04/27/24 09:44 Preop Diagnosis: Left knee degenerative joint disease Operation Date: 04/27/24 10:35 Proposed Procedures p Joni Robot Total Knee Arthroplasty(Left) - Jason Wilkins DO Familial anesthetic complications: None Was Beta Bia taken within 24 hours: N/A Was Clonidine taken within 24 hours: N/A Last intake: > 8 hrs Social No alcohol and No tobacco Exam alert, oriented x 3, clear to auscultation bilaterally and regular rate & rhythm Airway Mallampati: Class III Dentition: other ( I have some questionable teeth ) Pulmonary Chronic Obstructive Pulmonary Disease and Sleep Apnea CV/HEM Congestive Heart Failure and Hypertension pulm HTn Ascending AA Chronic Renal Insufficiency GI Gastroesophageal Reflux Disease Metabolic Diabetes Mellitus, Hyperlipidemia and Morbid Obesity Anesthetic Plan ASA status: 4 Anesthesia: Regional (specify below) Risk of > 500 ml blood loss (7ml/kg in children): Yes, adequate IV access and fluids planned Medications/Allergies Home Medications Medication Instructions Recorded Confirmed Last Taken Type albuterol sulfate 90 mcg/actuation 2 puff inhalation Q6H PRN 07/08/19 04/27/24 01/21/24 History aerosol inhaler (Ventolin HFA) Shortness Of Breath hydroxyzine HCl 25 mg tablet 50 mg PO BID PRN Itching 07/26/20 04/27/24 01/18/24 History blood sugar diagnostic (Relion #100 ea 03/06/22 03/27/24 Unknown Rx Confirm-Micro strips) blood-glucose meter (ReliOn Micro #1 ea 03/06/22 03/27/24 Unknown Rx Glucose Monitor kit) nebulizers #1 ea 06/22/22 03/27/24 Unknown Rx cetirizine 10 mg tablet (Zyrtec) 10 mg PO DAILY 09/28/22 04/23/24 04/25/24 History diphenhydramine HCl 25 mg tablet 25 mg PO DAILY 09/28/22 04/23/24 04/25/24 History (Benadryl Allergy) aspirin 325 mg tablet 325 mg PO DAILY 05/02/23 04/23/24 04/23/24 History carvedilol 25 mg tablet 25 mg PO DIRECTED 06/27/23 04/23/24 04/27/24 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, 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 #1 ea 07/25/23 03/27/24 Unknown Rx apixaban 5 mg tablet (Eliquis) 5 mg PO BID #180 tabs 10/11/23 04/23/24 04/23/24 Rx finasteride 5 mg tablet 5 mg PO DAILY #90 tabs 11/12/23 04/23/24 04/25/24 Rx magnesium oxide 400 mg PO DAILY #90 caps 11/12/23 04/23/24 04/25/24 Rx tamsulosin 0.4 mg capsule 0.4 mg PO BID #180 caps 11/12/23 04/23/24 04/25/24 Rx ipratropium 0.5 mg-albuterol 3 mg 3 ml inhalation Q4H PRN wheezing 12/09/23 04/27/24 2 Months Ago Rx (2.5 mg base)/3 mL nebulization #180 mL ~11/21/23 soln metolazone 2.5 mg tablet 2.5 mg PO .every other day #90 tabs 12/10/23 04/23/24 04/24/24 Rx spironolactone 25 mg tablet 25 mg PO DAILY #90 tabs 01/02/24 04/23/24 04/25/24 Rx fluticasone propionate 50 2 spray intranasal DAILY PRN allegy 01/09/24 04/23/24 04/25/24 History mcg/actuation nasal spray,suspension furosemide 40 mg tablet 40 mg PO DAILY weight gain #120 01/13/24 04/23/24 04/25/24 Rx tabs pantoprazole 40 mg tablet,delayed 40 mg PO BID 6 weeks #84 tabs 01/17/24 04/23/24 04/25/24 Rx release (Protonix) umeclidinium 62.5 mcg-vilanterol 1 inh inhalation DAILY 01/21/24 04/23/24 04/25/24 History 25 mcg/actuation powdr for inhalation (Anoro Ellipta) nystatin-triamcinolone 100,000 1 applic topical BID #60 grams 02/13/24 04/27/24 Unknown Rx unit/g-0.1 % topical cream ropinirole 2 mg tablet 2 mg PO TID #90 tabs 02/13/24 04/23/24 04/25/24 Rx sertraline 50 mg tablet 100 mg (2 x 50 mg) PO DAILY #60 02/13/24 04/23/24 04/25/24 Rx tabs blood sugar diagnostic (OneTouch #100 ea 02/20/24 03/27/24 Unknown Rx Ultra Test strips) hydroxyurea 500 mg capsule 500 mg PO BID #180 caps 03/19/24 04/23/24 04/25/24 Rx lancets 33 gauge (OneTouch Delica #100 ea 03/23/24 03/27/24 Unknown Rx Plus Lancet) empagliflozin 10 mg tablet 20 mg PO DAILY 04/23/24 04/23/24 04/23/24 History (Jardiance) potassium chloride 10 mEq 20 meq PO DAILY 04/23/24 04/23/24 04/25/24 History tablet,extended release semaglutide 2 mg/dose (8 mg/3 mL) 2 mg SUBCUT .Q7D 04/23/24 04/23/24 04/16/24 History subcutaneous pen injector (Ozempic) simvastatin 20 mg tablet 20 mg PO DAILY 04/23/24 04/23/24 04/25/24 History Allergies Allergy/AdvReac Type Severity Reaction Status Date / Time levofloxacin [From Levaquin] Allergy Unknown ADR/ALGY-Fl Verified 04/27/24 09:42 ushing codeine AdvReac Unknown ADR-Blurry Verified 04/27/24 09:42 Vision metaxalone [From Skelaxin] AdvReac Unknown ADR-Blurry Verified 04/27/24 09:42 [facility] Medical History Restrictive lung disease Pulmonary hypertension Type 2 diabetes mellitus Hyperlipidemia PRV (polycythemia rubra vera) 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 Peripheral neuropathy History of colon polyps Obstructive sleep apnea Elevated PSA GERD (gastroesophageal reflux disease) Osteoarthritis Ascending aortic aneurysm Atrial fibrillation Diastolic heart failure HTN (hypertension) Surgical History Hx of bilateral cataract extraction History of cardioversion History of esophagogastroduodenoscopy Status post colonoscopy with polypectomy History of orthopedic surgery S/P appendectomy S/P cholecystectomy Family History Father Diabetes Sepsis Bleeding disorder Clotting disorder Brother Diabetes Cancer stomach; colon Mother Cancer colon; liver Heart failure CAD (coronary artery disease) 50s Lung disease Grandfather Dementia Denies family history of Chronic kidney disease (CKD) Suicide Anesthesia complication Stroke Social History Smoking and tobacco/nicotine status: never used tobacco/nicotine Quit status (tobacco/nicotine): has quit using Year quit tobacco: 2012 - 1PPD x 40 Years Second hand smoke exposure: No Alcohol intake: never Substance/Drug Use: never Lives independently: Yes Household members: spouse Marital status: Current occupational status: retired Leisure activites: reading Do you think of yourself as: Straight/Heterosexual Current gender identity: Male Data Anesthesia 04/27/24 09:55 04/27/24 09:55 Short CBC 04/27/24 Range/Units 09:55 WBC 10.18 (3.29-11.43) 10^3/uL Hgb 14.70 (11.27-16.99) g/dL Hct 44.2 (37-53) % MCV 116.3 H (82-101) fl Plt Count 297 (157-399) 10^3/cmm Neut % (Auto) 77.5 % Neut # (Auto) 7.89 H (1.8-7.7) 10^3/uL Cardiac Studies: 2 Echocardiogram Ultrasound 07/16/19 Transesophageal Echocardiogram 04/17/21 Sestamibi Stress Test (Cardiology) 01/17
--- NOTE | 2024-04-27 10:16 | ANES.PROC ---
Anesthesia Procedures Procedure/Date: 04/27/24 Nerve Block ^: Nerve Block 1: Main Anesthesia: spinal anesthesia block Time Out Performed: Yes Consent: requested by attending/covering physician, from patient, from other, risks and benefits reviewed and patient agrees to proceed Nerve block location: adductor canal (L) Anesthesia monitors applied: pulse oximetry, EKG, BP cuff and oxygen Nerve block position: supine Anesthetic Used: ropivicaine 0.5% (30 ml) and with decadron (4 mg) Ultrasound used to: recognize landmarks and visualize and ID femerol nerve Nerve Stimulator Used?: No Interscalene/Femoral BLK: 4 stimuplex 21 g needle used for position and inplane approach, visualize local anesthetic spread and no vascular puncture identified Injection: neg aspiration of heme Patient Tolerated Procedure: well Complications: none
[2024-04-27 10:24] LABS: Blood Urea Nitrogen 27 mg/dL (8-23); Calcium 8.5 mg/dL (8.5-10.5); Carbon Dioxide 24 mmol/L (22-29); Chloride 103 mmol/L (98-107); Creatinine Clr Calc Pharmacy 86.6867; Glucose 135 mg/dL (65-115); Osmolality Calculated 291 mOsm/kg (285-295); Sodium 137 mmol/L (136-145)
[2024-04-27 10:29] LABS: Anion Gap 14.8 (5-19); Potassium 4.8 mmol/L (3.5-5.1)
[2024-04-27] MEDS: sodium chloride 0.9% 1,000 ML 30 ML IV (10:32)
[2024-04-27] MEDS: ceFAZolin 3,000 MG in sodium chloride 0.9% (plus) 100 ML 200 MG IV (10:44)
[2024-04-27] MEDS: tranexamic acid 1,000 mg/10mL SDV 1000 MG IV (11:20)
[2024-04-27] MEDS: vancomycin 1,000 MG SDV 2000 MG XX (12:37)
[2024-04-27] MEDS: EPINEPHrine 1 mg/mL INJ XX (12:38)
[2024-04-27] MEDS: ketorolac 30 mg/mL INJ XX (12:38)
[2024-04-27] MEDS: tranexamic acid 1,000 mg/10mL SDV 1000 MG XX (12:38)
[2024-04-27] MEDS: ROPivacaine 0.2% Premix 100 mL 200 MG INTRA-ARTI (12:38)
--- NOTE | 2024-04-27 13:14 | XRR_ITS ---
PROCEDURE INFORMATION: Exam: XR Left Knee Exam date and time: 04/27/2024 2:30 PM Age: 73 years old Clinical indication: Device placement; Joint replacement hardware; Prior surgery; Surgery date: Post-operative (0-2 days); Surgery type: L tka; Additional info: Post L tka, do in pacu TECHNIQUE: Imaging protocol: Radiologic exam of the left knee. Views: 1 or 2 views. COMPARISON: CT knee LT [facility] [id number] 04/14/2024 11:10 AM FINDINGS: Bones/joints: Complete left knee arthroplasty in adequate anatomic alignment and without complications. No fracture or dislocation. Soft tissues: Expected soft tissue swelling and soft tissue emphysema (postsurgical changes). XR/XR knee LT 1-2V [id number] IMPRESSION: 1. Complete left knee arthroplasty in adequate anatomic alignment and without complications. 2. Expected soft tissue swelling and soft tissue emphysema (postsurgical changes).
--- NOTE | 2024-04-27 13:16 | P.OP_ITS ---
Operative Report Date of procedure: April 27, 2024 Surgeon: Jason Wilkins DO Artificial Breeding Technician: Alejandro Wilkins PA-C: PA was necessary for assistance in this case with leg positioning retraction and protection of neurovascular structures as well as assistance in implantation wound closure and dressing application. Procedure: Preoperative diagnosis: Left knee degenerative joint disease Post-op diagnosis: Same Procedure done: Left total knee arthroplasty, cemented?robotic assisted Joni Implants: [place] triathlon size 6 femur CR cemented?left [place] triathlon size? 5 tibia universal baseplate cemented [place] triathlon symmetric patella size 33 mm Samira triathlon polyethylene 10mm Surgeon: Jason Wilkins DO Estimated blood?loss: 25 mL Tourniquet 70min IV fluids: 1800 mL Urine output: 100 mL Complications: None Condition: stable Disposition: floor Brief History: Patient is a 73-year-old male with with chronic?left knee degenerative joint disease.? Patient has been worked up in the outpatient setting in the orthopedic office at this point time through shared decision making given? almr-sk-mhel arthritis as well as failed conservative treatment, and pt would?like to proceed with a?left total knee arthroplasty.? Through shared decision making elected to proceed with surgical intervention for?left total knee arthroplasty.? We talked about continued conservative treatment and surgical intervention as far as the risk benefits complications alternatives surgical and nonsurgical treatment options.? Patient is cleared the preoperative clearance process. At this point time understanding patient risks with surgery he agrees to proceed with surgical intervention.? Once again? risk with surgery include but are not?limited to make it better make it worse blood clot, heart attack, stroke, on the table, infection, injury to nerves or vessels, persistent pain, arthrofibrosis, implant failure.? Understanding these risks patient agrees to proceed with surgical intervention consent was obtained in the office.? All questions answered. Procedure: Patient was seen and evaluated in the preoperative holding area.? Consent was reviewed and signed with patient with plan for?left total knee arthroplasty.? All questions answered.? Correct extremity marked.? Patient seen and evaluated by the anesthesia department and once cleared for surgery was taken back to the operative suite.? Patient was placed into a supine position on the OR table.? All bony prominences were well-padded.? Patient was appropriately secured to the bed.? Patient underwent anesthesia per the anesthesia department.? Patient received spinal anesthesia and? Avalos catheter was placed.? A nonsterile tourniquet was applied to the?left thigh.? At this point in time a final timeout performed.? Patient received appropriate preoperative antibiotics and TXA. Next the?left?lower extremity was then prepped and draped in standard orthopedic fashion. Esmarch tourniquet was used exsanguinate the?left?lower extremity.? Tourniquet was insufflated to 300 mmHg. A standard anterior incision was made over midline of the knee.? Sharp scalpel excision through skin and subcutaneous tissue full-thickness skin flaps were made.? Fascia was elevated off of the extensor retinaculum was stable with medial parapatellar arthrotomy was then made.? The performed standard sequential releases..? Immediately on entry into the joint patient was found to have severe eburnated bone and tricompartmental arthritic changes noted.? With significant osteophyte formation.? Next the the patella was then stuffed and the knee was then flexed.?? Josselyn was placed superiorly around the anterior aspect of the femur this was freed of synovium and I subsequently then placed by 2 femur pins to establish my femur arrays for the Joni robot.? These were then placed bicortically and? femur array was then appropriately secured with appropriate visualization.? Next attention was turned towards the tibial rays.? These were then drilled sequentially bicortically in parallel fashion and intraincisional.? I then placed my guide as well as my tibial array on in place.? This was appropriately secured and had excellent visualization with the Joni robot.? Next the tibial checkpoint as well as femur checkpoint were then placed.? At this point time I then subsequently established my head center as well as my medial?lateral malleoli as well as my checkpoints.? Next utilizing standard Joni technology I then mapped out the appropriate points and confirmation points around the femur as well as the tibia in standard fashion.? Once this was then done I then removed all osteophytes in preparation for dynamic testing.? All osteophytes were removed as well as I removed the ACL and the PCL was excised due to its significant tearing and degeneration noted.? At this point time the knee was brought into full extension and we performed our standard evaluation of our gap balancing stressing his?ligaments and extension as well as flexion appropriate adjustments were made to have appropriate gap balancing in both flexion and extension.? This plan for final counts.? We get a preoperative plan evaluating our implants which was a size 6 femur and a size 5 tibia.? Next we brought in the Joni robot and sequentially made our femur cuts.? All excess bony cuts were then removed.? Finally we made our tibial cut.? Once this was done a standard PCL retractor was then placed into this position I excised the medial and?lateral meniscus.? The tibial cut was then subsequently removed all excess bony debris was removed.? I then utilized a?lamina auto fleet maintenance manager and remove the posterior osteophytes.? At this point time sized the tibia and confirmed this was a size 5.? I utilized our blunt probe to establish rotation of tibial implant.? Once this was done I then placed my tibia size 5 trial in appropriate position and then subsequently placed tibial pins to hold this into place placed a size 10 mm poly as well as a size 6 femur which was appropriately impacted in place knee was then subsequently brought into extension. Trials were then assessed,? this was stable with varus valgus stress in extension as well as had symmetrical translation when brought into flexion demonstrating symmetrical gaps. I had excellent balance gaps in flexion and extension with varus and valgus stresses.? At this point I was satisfied with these implants these were then verified and opened on the back table size 5 tibia, size 6 femur,? size 10 mm polythickness.? We did confirm appropriate gap balancing and stresses as well as alignment utilizing? Joni and were satisfied with this plan.? ?At this point time with my trials in place I then towel clip the patella everted this made appropriate measurements subsequently utilizing freehand technique performed by patellar resurfacing this was confirmed to be appropriate resection and subsequently sized to be a 33 mm symmetric.? My drill peg guides were then clamped and appropriate position and appropriate position in the patella for appropriate tracking and parallel with the joint.? Pegs were drilled trial implant was placed and the knee was then subsequently ranged and found to have excellent patellar tracking.? Femur pegs were then drilled.? ? All checkpoints as well as guidepins and arrays were removed and appropriate counts made.?Satisfied with our tibial placement rotation I then utilized the keel punch and prepped the tibia.? At this point time all of our trial implants were removed. The wound bed? was thoroughly irrigated and dried and prepped for cementation.? Cement was mixed on the back table.? Once cement was ready this was then covered onto the tibia and the tibial baseplate was then impacted and all excess cement was removed.? Next the polyethylene was then impacted into place on the tibial baseplate.? Next cement was placed onto the femur as well as under the femur implants and impacted in to place and all excess cement was ex truded and removed.? Knee was taken into full extension? to clear all excess cement was removed.? Warm saline was placed over the joint.? I then towel clip patella and dried for cementation. cemented the patella into place.? This was all clamped and the cement was allowed to cure.? Thorough irrigation performed with pulse?lavage.? I then placed my periarticular injection while the cement was curing.? Once cured the knee was taken through range of motion and had excellent stability and gaps were balanced in flexion and extension.? Tourniquet was then deflated. hemostasis satisfactory with electrocautery. Vancomycin powder was placed inside the wound bed for antibiotic infection prophylaxis. Next I then subsequently closed the capsule with Ethibond suture as well as a running strata fix suture.? Knee was then taken through range of motion 30 times.? Next the skin was then closed in?layered fashion of running stratifix sutures of deep and subcutenous tissue and skin.? ?closed in flexion and Prineo glue was then placed over the incision this allowed to cure.? Incision was covered with ceci incisional VAC dressing, with ABDs soft roll and John wrap.? Patient was then awakened from anesthesia and taken to PACU in stable condition. Disposition: Patient taken to PACU in stable condition will be admitted to the floor for pain control PT/OT weight-bear as tolerated?left?lower extremity dressing changes as needed, DVT prophylaxis. Pain control. Patient will receive appropriate postoperative antibiotics. patient will be seen today by the internal medicine team for medical management.? Patient will follow up with the office in 2 weeks.? Patient understands agrees with current plan.? All questions answered.
--- NOTE | 2024-04-27 13:24 | P.BOP_ITS ---
Date of Procedure: [April 27, 2024] Surgeon: [Dr. Wilkins DO] Supervisor Cured Meats(s): [Alejandro Wilkins PA-C] Procedure(s) performed: [Left total knee arthroplasty with Joni robotic assist] Findings of the procedure(s): [Left knee degenerative joint disease. Procedure went well and as planned.] Estimated blood loss: [25 ml] Specimen(s) removed: [N/A] Post-operative diagnosis: [Left knee degenerative joint disease]
--- NOTE | 2024-04-27 13:26 | PM.PACU ---
PACU note Narrative: Patient is a 73-year-old male just underwent a left knee total arthroplasty. Pt transferred to PACU in stable condition. Dressing is dry. pt is awake and alert. Distal pulses are palpable toes are warm and well-perfused. Cap refill is normal and under 2 seconds. Pain is controlled. Unable to perform any further assessment on motor sensation left leg due to residual spinal block. Exam: awake Disposition: admitted
--- NOTE | 2024-04-27 13:43 | PM.CONSULT ---
Providers/Reason For Consult Consulting Physician/Specialty*: Hospitalist Reason for Consult*: Medical comorbidities Attending Physician: Jason Wilkins DO Primary Care Provider: Charla Chu MD History of Present Illness History of Present Illness Pleasant 73-year-old gentleman with history of pulmonary hypertension, restrictive lung disease, SAMRA, on nightly CPAP with 4 L of oxygen bled in, not normally on oxygen during the day, with history of atrial fibrillation on Eliquis, DM2, HTN, HLD, HFpEF, GERD, ascending aortic aneurysm, other medical problems, underwent left TKA, with medicine consulted on the case due to his stable medical comorbidities. He is doing well postoperatively, denies pain or discomfort, still recovering from anesthesia, but is awake alert, no trouble breathing, no chest pain or pressure. He denies any other acute recent issues, denies any changes to his medications. Review of Systems Const: Denies: fever(s), chills, body aches or malaise Card: Denies: chest pain, edema, pre-syncope or dyspnea on exertion Resp: Denies: dyspnea, productive cough, change in phlegm color or hemoptysis GI: Denies: abdominal pain, nausea, vomiting, diarrhea, constipation, hematochezia or melena Skin/Breast: Denies: rash Medications/Allergies Home Medications Medication Instructions Recorded Confirmed Last Taken Type albuterol sulfate 90 mcg/actuation 2 puff inhalation Q6H PRN 07/08/19 04/27/24 01/21/24 History aerosol inhaler (Ventolin HFA) Shortness Of Breath hydroxyzine HCl 25 mg tablet 50 mg PO BID PRN Itching 07/26/20 04/27/24 01/18/24 History blood sugar diagnostic (Relion #100 ea 03/06/22 03/27/24 Unknown Rx Confirm-Micro strips) blood-glucose meter (ReliOn Micro #1 ea 03/06/22 03/27/24 Unknown Rx Glucose Monitor kit) nebulizers #1 ea 06/22/22 03/27/24 Unknown Rx cetirizine 10 mg tablet (Zyrtec) 10 mg PO DAILY 09/28/22 04/23/24 04/25/24 History diphenhydramine HCl 25 mg tablet 25 mg PO DAILY 09/28/22 04/23/24 04/25/24 History (Benadryl Allergy) aspirin 325 mg tablet 325 mg PO DAILY 05/02/23 04/23/24 04/23/24 History carvedilol 25 mg tablet 25 mg PO DIRECTED 06/27/23 04/23/24 04/27/[address] brace, right knee #1 ea 07/25/23 03/27/24 Unknown Rx apixaban 5 mg tablet (Eliquis) 5 mg PO BID #180 tabs 10/11/23 04/23/24 04/23/24 Rx finasteride 5 mg tablet 5 mg PO DAILY #90 tabs 11/12/23 04/23/24 04/25/24 Rx magnesium oxide 400 mg PO DAILY #90 caps 11/12/23 04/23/24 04/25/24 Rx tamsulosin 0.4 mg capsule 0.4 mg PO BID #180 caps 11/12/23 04/23/24 04/25/24 Rx ipratropium 0.5 mg-albuterol 3 mg 3 ml inhalation Q4H PRN wheezing 12/09/23 04/27/24 2 Months Ago Rx (2.5 mg base)/3 mL nebulization #180 mL ~11/21/23 soln metolazone 2.5 mg tablet 2.5 mg PO .every other day #90 tabs 12/10/23 04/23/24 04/24/24 Rx spironolactone 25 mg tablet 25 mg PO DAILY #90 tabs 01/02/24 04/23/24 04/25/24 Rx fluticasone propionate 50 2 spray intranasal DAILY PRN allegy 01/09/24 04/23/24 04/25/24 History mcg/actuation nasal spray,suspension furosemide 40 mg tablet 40 mg PO DAILY weight gain #120 01/13/24 04/23/24 04/25/24 Rx tabs pantoprazole 40 mg tablet,delayed 40 mg PO BID 6 weeks #84 tabs 01/17/24 04/23/24 04/25/24 Rx release (Protonix) umeclidinium 62.5 mcg-vilanterol 1 inh inhalation DAILY 01/21/24 04/23/24 04/25/24 History 25 mcg/actuation powdr for inhalation (Anoro Ellipta) nystatin-triamcinolone 100,000 1 applic topical BID #60 grams 02/13/24 04/27/24 Unknown Rx unit/g-0.1 % topical cream ropinirole 2 mg tablet 2 mg PO TID #90 tabs 02/13/24 04/23/24 04/25/24 Rx sertraline 50 mg tablet 100 mg (2 x 50 mg) PO DAILY #60 02/13/24 04/23/24 04/25/24 Rx tabs [facility]/20/24 03/27/24 Unknown Rx Ultra Test strips) hydroxyurea 500 mg capsule 500 mg PO BID #180 caps 03/19/24 04/23/24 04/25/24 Rx lancets 33 gauge (OneTouch Delica #100 ea 03/23/24 03/27/24 Unknown Rx Plus Lancet) empagliflozin 10 mg tablet 20 mg PO DAILY 04/23/24 04/23/24 04/23/24 History (Jardiance) potassium chloride 10 mEq 20 meq PO DAILY 04/23/24 04/23/24 04/25/24 History tablet,extended release semaglutide 2 mg/dose (8 mg/3 mL) 2 mg SUBCUT .Q7D 04/23/24 04/23/24 04/16/24 History subcutaneous pen injector (Ozempic) simvastatin 20 mg tablet 20 mg PO DAILY 04/23/24 04/23/24 04/25/24 History Allergies Allergy/AdvReac Type Severity Reaction Status Date / Time levofloxacin [From Levaquin] Allergy Unknown ADR/ALGY-Fl Verified 04/27/24 09:42 ushing codeine AdvReac Unknown ADR-Blurry Verified 04/27/24 09:42 Vision metaxalone [From Skelaxin] AdvReac Unknown ADR-Blurry Verified 04/27/24 09:42 Vision Current Medications Generic Name Dose Route Start Last Admin Trade Name Freq PRN Reason Stop Dose Admin Sodium Chloride 1,000 mls @ 30 mls/hr 04/27/24 09:15 04/27/24 10:32 Sodium Chloride 0.9% IV 04/28/24 09:14 30 mls/hr .Q24H YAHAIRA Administration PFSH Acute PFSH: Medical History Restrictive lung disease Pulmonary hypertension Type 2 diabetes mellitus Hyperlipidemia PRV (polycythemia rubra vera) 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 Peripheral neuropathy History of colon polyps Obstructive sleep apnea Elevated PSA GERD (gastroesophageal reflux disease) Osteoarthritis Ascending aortic aneurysm Atrial fibrillation Diastolic heart failure HTN (hypertension) Surgical History Hx of bilateral cataract extraction History of cardioversion History of esophagogastroduodenoscopy Status post colonoscopy with polypectomy History of orthopedic surgery S/P appendectomy S/P cholecystectomy Family History Father Diabetes Sepsis Bleeding disorder Clotting disorder Brother Diabetes Cancer stomach; colon Mother Cancer colon; liver Heart failure CAD (coronary artery disease) 50s Lung disease Grandfather Dementia Denies family history of Chronic kidney disease (CKD) Suicide Anesthesia complication Stroke Social History Smoking and tobacco/nicotine status: never used tobacco/nicotine Quit status (tobacco/nicotine): has quit using Year quit tobacco: 2011 1PPD x 40 Years Second hand smoke exposure: No Alcohol intake: never Substance/Drug Use: never Lives independently: Yes Household members: spouse Marital status: Current occupational status: retired Leisure activites: reading Do you think of yourself as: Straight/Heterosexual Current gender identity: Male Vitals/I&O/Wt Last Vital Signs Temp 97.1 F L 04/27/24 13:16 Pulse 62 04/27/24 13:41 Resp 13 04/27/24 13:41 BP 97/55 04/27/24 13:41 Pulse Ox 97 04/27/24 13:41 O2 Del Method Nasal Cannula 04/27/24 13:41 O2 Flow Rate 3 04/27/24 13:41 04/26/24 04/27/24 04/27/24 22:59 06:59 14:59 Intake Total 1800 / 1800 Output Total 125 / 125 Balance 1675 / 1675 Weight last 48 hrs Weight 139.253 kg Physical Exam Const: COMMON NORMALS: patient oriented x3 and alert GENERAL APPEARANCE: cooperative ORIENTATION/CONSCIOUSNESS: Yes awake HENMT: COMMON NORMALS: oropharynx normal Neck/C-Spine: COMMON NORMALS: no JVD Resp: COMMON NORMALS: normal respiratory effort and clear to auscultation bilaterally AUSCULTATION: clear to auscultation bilaterally Cardio: COMMON NORMALS: no JVD, regular rhythm, S1 normal heart sound present, S2 normal heart sound present and No murmurs present (Cardio) RHYTHM: regular rhythm HEART SOUNDS: S1 normal heart sound present and S2 normal heart sound present GI: COMMON NORMALS: Normal to inspection, nondistended, normoactive bowel sounds present, Soft to palpation and non-tender PALPATION: Yes Soft to palpation Extremity: COMMON NORMALS: no joint enlargement and no pedal edema OTHER: Postsurgical dressing left lower extremity, without swelling Neuro: COMMON NORMALS: patient oriented x3 and moves all extremities SENSORIUM/ORIENTATION: Yes alert Skin: COMMON NORMALS: no rashes or lesions noted GENERAL SKIN EXAM: no rashes or lesions noted Urinary Catheter Management: Avalos Latex: Cath Placed During This Visit: yes Urinary Catheter Date of Insertion: 04/27/24 Urinary Catheter Time of Insertion: 11:03 Data 04/27/24 09:55 04/27/24 09:55 A&P Assessment and plan (1) S/P total knee arthroplasty: Status post left total knee arthroplasty, recovering from anesthesia, so far is doing well. Discussed with him, discussed with orthopedic surgeon, reviewed orthopedic note, vitals, CBC, BMP. He is normally on anticoagulation, Eliquis 5 mg twice daily for stroke risk prevention, as well as aspirin 325 mg daily. EBL reported only 25 mL. If there is concern for bleeding it is okay to resume at first prophylactic dose 2.5 mg twice daily Eliquis, then resuming 5 mg twice daily for continued stroke risk reduction with atrial fibrillation as soon as deemed safe. Follow-up blood counts to be repeated for tomorrow. Monitor for bleeding with anticoagulation resumption postoperatively. Continue postoperative care, pain control as needed. Monitor oxygenation. Continue CPAP with oxygen bled in for SAMRA with sleep. Monitor for any hypoxia with IV opioid. Incentive spirometer. PT evaluation. Post discharge planning. Plan A-fib: Eliquis has been on hold, resume when deemed safe in terms of bleeding risk for surgery for continued stroke risk reduction. Continue carvedilol. Pulmonary hypertension: Continue nightly oxygen 4 L bled into CPAP. Monitor oxygenation for hypoxia. Follow-up with primary provider. HFpEF: Stop further IV fluids. Monitor volume status. SAMRA: Continue nightly CPAP with O2 bled in Restrictive lung disease: DuoNebs scheduled and as needed while in the hospital. DM2: Sliding scale insulin, hold oral hypoglycemics while in hospital. Resume at discharge. GERD: Continue PPI BPH: Continue Flomax, finasteride Depression: With concern for bleeding consider holding sertraline at current time, resume once considered at less bleeding risk. Polycythemia: Normally on hydroxyzine. Reassess blood counts prior to resumption. HTN: Monitor blood pressures. Continue carvedilol. Hold spironolactone for now. HLD: Continue statin. Ascending aortic aneurysm: Resume aspirin when safe. Monitor blood pressures. Resume antihypertensives on discharge or sooner if blood pressure rising during recovery in the hospital. Consult Attestations Medical Necessity Statement: Continue hospitalization for assessment management following L TKA in a gentleman with multiple underlying comorbidities. and High MDM includes amount and/or complexity of data reviewed/ordered [ previous or external records, resulted lab(s)/test(s), ordered lab(s)/test(s) and other healthcare professional discussion] and described risk of complication, morbidity or mortality of management as documented Diagnoses S/P total knee arthroplasty Z96.659
--- NOTE | 2024-04-27 13:59 | PC.NURSE ---
1357 - pt returned to a room in outpts due to no floor beds - report to MARGOTH Lizama
--- NOTE | 2024-04-27 14:55 | ANE.PACU2 ---
Inpatient post-anesthesia follow up: Airway intact: Yes Vital signs: Temperature 97.5 F Pulse Rate 66 Respiratory Rate 18 Blood Pressure 106/67 Pulse Oximetry 93 Oxygen Delivery Me thod Room Air Oxygen Flow Rate 2 Fraction of Inspir ed Oxygen Hydration adequate: Yes Nausea and vomiting: No Pain level: 1 Mental status: Baseline
[2024-04-27] MEDS: ropinirole 2 mg Tablet PO ×2 (15:37→20:22)
[2024-04-27] MEDS: lactated ringers 1,000 ML 100 ML IV (15:37)
[2024-04-27] MEDS: ipratropium-albuterol 3 mL Neb INHALATION ×2 (16:20→19:56)
[2024-04-27 16:32] LABS: Glucose Point of Care 147 mg/dL (70-110)
[2024-04-27] MEDS: calcium carb-vit d 600mg/400unit 1 Tablet 1 EACH PO (17:20)
[2024-04-27] MEDS: pantoprazole DR 40 mg Tablet PO (17:20)
[2024-04-27] MEDS: carvedilol 25 mg Tablet PO (17:20)
[2024-04-27] MEDS: iron polysaccharide complex 150 mg Capsule PO (17:21)
[2024-04-27] MEDS: tamsulosin 0.4 mg Capsule PO (17:22)
[2024-04-27] MEDS: insulin lispro 100 unit/1 mL SUBCUT ×2 (17:31→20:31)
[2024-04-27] MEDS: chlorhexidine gluconate 0.12% Btl 473 mL 30 ML MUCOUS MEM ×2 (17:31→20:22)
[2024-04-27] MEDS: docusate sodium 100 mg Capsule PO (17:36)
[2024-04-27] MEDS: tranexamic acid 1,000 MG/100 ML PREMIX 600 MG IV (17:52)
[2024-04-27] MEDS: ceFAZolin 3,000 MG in sodium chloride 0.9% (plus) 50 ML 100 MG IV (18:25)
[2024-04-27] MEDS: oxyCODONE 5 mg IR Tab/Cap PO (18:29)
[2024-04-27 20:29] LABS: Glucose Point of Care 207 mg/dL (70-110)
[2024-04-28] MEDS: lactated ringers 1,000 ML 100 ML IV (00:15)
[2024-04-28] MEDS: acetaminophen 1,000 MG/100 ML PIGGYBACK 400 MG IV ×2 (00:15→09:18)
[2024-04-28] MEDS: fluticasone nasal spray 16gm Btl 2 SPRAY INTRANASAL (01:39)
[2024-04-28] MEDS: ceFAZolin 3,000 MG in sodium chloride 0.9% (plus) 50 ML 100 MG IV ×2 (02:19→11:37)
[2024-04-28] MEDS: TRAMadol 50 mg Tablet PO ×2 (04:02→09:21)
[2024-04-28 04:03] VITALS: BP 100/59; PULSE 93; RESP 17; TEMP 36.7; O2SAT 95
[2024-04-28 04:38] VITALS: RESP 16
[2024-04-28] MEDS: HYDROmorphone 1 mg/mL INJ 1 mL 0.5 MG IVP (04:38)
[2024-04-28 05:25] LABS: Basophils % 0.2 %; Eosinophils # 0.1 10^3/uL (0.0-0.8); Eosinophils % 0.4 %; Hematocrit 40.6 % (37-53); Lymphocytes # 0.6 10^3/uL (0.8-4.8); Lymphocytes % 4.3 %; Mean Corpuscular HGB Conc 32.8 g/dL (30-55); Mean Corpuscular Hemoglobin 39.2 pg (27-33); Mean Corpuscular Volume 119.8 fl (82-101); Mean Platelet Volume 9.8 fL (7.4-10.4); Monocytes # 0.8 10^3/uL (0.2-0.9); Monocytes % 5.8 %; Neutrophils # 12.17 10^3/uL (1.8-7.7); Neutrophils % 88.1 %; Nucleated Red Blood Cells % 0 %; Platelet Count 297 10^3/cmm (157-399); Red Blood Count 3.39 10^6/uL (3.85-5.65); Red Cell Distribution Width 13.2 % (12.1-15.1); White Blood Count 13.82 10^3/uL (3.29-11.43)
[2024-04-28 05:48] LABS: Anion Gap 15.2 (5-19); Blood Urea Nitrogen 25 mg/dL (8-23); Calcium 7.9 mg/dL (8.5-10.5); Carbon Dioxide 23 mmol/L (22-29); Chloride 103 mmol/L (98-107); Creatinine Clr Calc Pharmacy 69.5142; Glucose 140 mg/dL (65-115); Osmolality Calculated 291 mOsm/kg (285-295); Potassium 4.2 mmol/L (3.5-5.1); Sodium 137 mmol/L (136-145)
[2024-04-28 06:25] LABS: Glucose Point of Care 152 mg/dL (70-110)
[2024-04-28 07:34] VITALS: BP 126/69; PULSE 74; RESP 17; TEMP 36.8; O2SAT 94
[2024-04-28] MEDS: calcium carb-vit d 600mg/400unit 1 Tablet 1 EACH PO (09:15)
--- NOTE | 2024-04-28 09:15 | P.PN_ITS ---
Subjective 2 Subjective: This is URI. He worked with physical therapy to the door yesterday. He is having some pain in his left knee, for which she did take oxycodone last night, but had some strange symptoms in his vision with some blue clouds in his vision. He states that he had some tunnel vision previously with codeine. He states he did okay with tramadol yesterday although it was slightly less effective for him. Vitals/I&O/Wt Last Vital Signs Temp 98.3 F 04/28/24 07:34 Pulse 74 04/28/24 07:34 Resp 17 04/28/24 07:34 BP 126/69 04/28/24 07:34 Pulse Ox 94 04/28/24 07:34 O2 Del Method Room Air 04/28/24 07:34 O2 Flow Rate 2 04/27/24 14:00 04/27/24 04/28/24 04/28/24 22:59 06:59 14:59 Intake Total 790 / 2590 1313.333 / 3903.333 240 / 240 Output Total 500 / 625 250 / 875 Balance 290 / 1965 1063.333 / 3028.333 240 / 240 Weight last 48 hrs Weight 144.378 kg Weight 139.253 kg Weight 139.253 kg Physical Exam 2 Const: COMMON NORMALS: patient oriented x3 and alert GENERAL APPEARANCE: c ooperative ORIENTATION/CONSCIOUSNESS: Yes awake HENMT: COMMON NORMALS: oropharynx normal Neck/C-Spine: COMMON NORMALS: no JVD Resp: COMMON NORMALS: normal respiratory effort and clear to auscultation bilaterally AUSCULTATION: clear to auscultation bilaterally Cardio: COMMON NORMALS: no JVD, regular rhythm, S1 normal heart sound present, S2 normal heart sound present and No murmurs present (Cardio) RHYTHM: regular rhythm HEART SOUNDS: S1 normal heart sound present and S2 normal heart sound present GI: COMMON NORMALS: Normal to inspection, nondistended, normoactive bowel sounds present, Soft to palpation and non-tender PALPATION: Yes Soft to palpation Extremity: COMMON NORMALS: no joint enlargement and no pedal edema OTHER: Postsurgical dressing left lower extremity, without swelling. Mini wound VAC in place. No drainage. Neuro: COMMON NORMALS: patient oriented x3 and moves all extremities S ENSORIUM/ORIENTATION: Yes alert Skin: COMMON NORMALS: no rashes or lesions noted GENERAL SKIN EXAM: no rashes or lesions noted Urinary Catheter Management: Avalos Latex: Cath Placed During This Visit: yes, but has since been removed by the nurse Reason for Continuing Indwelling Catheter: Decision to DC Catheter Urinary Catheter Date of Insertion: 04/27/24 Urinary Catheter Time of Insertion: 11:03 Date Urinary Catheter Removed: 04/28/24 Time Urinary Catheter Discontinued: 06:20 Data 04/28/24 04:41 04/28/24 04:41 A&P Assessment and plan (1) S/P total knee arthroplasty: He is overall doing well. Reviewed hemoglobin, platelets. Mildly decreased down to 13.8. No worsening of swelling. He is having pain. Had a reaction to oxycodone last night with vision changes, has had previous visual symptoms with codeine. Consider alternative medication. He did okay with tramadol, although it was somewhat less effective for him. Discussed with him some increasing risk of bleeding with tramadol. Discussed with him to avoid NSAIDs given CKD. Eliquis for VTE prophylaxis, advance to his usual dose when deemed safe by orthopedics. Ambulated with PT yesterday to the door. Discussed with orthopedic surgeon, case assistant. Avalos catheter DC'd. Stop IV fluid. Encouraged incentive spirometer. Okay for discharge once ready with orthopedics. Continue postoperative care, pain control as needed. Monitor oxygenation. Continue CPAP with oxygen bled in for SAMRA with sleep. Incentive spirometer. Plan A-fib: Eliquis has been on hold, resume when deemed safe in terms of bleeding risk for surgery for continued stroke risk reduction. Continue carvedilol. Pulmonary hypertension: Continue nightly oxygen 4 L bled into CPAP. Monitor oxygenation for hypoxia. Follow-up with primary provider. HFpEF: Stop further IV fluids. Monitor volume status. SAMRA: Continue nightly CPAP with O2 bled in Restrictive lung disease: DuoNebs scheduled and as needed while in the hospital. DM2: Sliding scale insulin, hold oral hypoglycemics while in hospital. Resume at discharge. GERD: Continue PPI BPH: Continue Flomax, finasteride Depression: With concern for bleeding consider holding sertraline at current time, resume once considered at less bleeding risk. Polycythemia: Normally on hydroxyzine. Reassess blood counts prior to resumption. HTN: Monitor blood pressures. Continue carvedilol. Hold spironolactone for now. HLD: Continue statin. Ascending aortic aneurysm: Resume aspirin when safe. Monitor blood pressures. Resume antihypertensives on discharge or sooner if blood pressure rising during recovery in the hospital. Attestations 2 Medical Necessity Statement*: Postoperative care and discharge arrangements after left TKA. Diagnoses S/P total knee arthroplasty Z96.659
[2024-04-28] MEDS: carvedilol 12.5 mg Tablet PO (09:16)
[2024-04-28] MEDS: tamsulosin 0.4 mg Capsule PO (09:16)
[2024-04-28] MEDS: iron polysaccharide complex 150 mg Capsule PO (09:17)
[2024-04-28] MEDS: pantoprazole DR 40 mg Tablet PO (09:17)
[2024-04-28] MEDS: cetirizine 10 mg Tablet PO (09:17)
[2024-04-28] MEDS: finasteride 5 mg Tablet PO (09:17)
[2024-04-28] MEDS: atorvastatin 40 mg Tablet 20 MG PO (09:17)
[2024-04-28] MEDS: multivitamin therapeutic Tablet 1 TAB PO (09:17)
[2024-04-28] MEDS: ropinirole 2 mg Tablet PO (09:17)
[2024-04-28] MEDS: docusate sodium 100 mg Capsule PO (09:17)
[2024-04-28] MEDS: insulin lispro 100 unit/1 mL SUBCUT (09:18)
[2024-04-28] MEDS: ipratropium-albuterol 3 mL Neb INHALATION (09:26)
[2024-04-28 09:29] VITALS: PULSE 74; RESP 18; O2SAT 95
[2024-04-28 10:34] LABS: Glucose Point of Care 137 mg/dL (70-110)
[2024-04-28 11:28] VITALS: BP 101/58; PULSE 86; RESP 17; TEMP 36.4; O2SAT 93
--- NOTE | 2024-04-28 13:27 | P.DS_ITS ---
Discharge Providers Date of Admission: 04/27/24 14:40 Date of Discharge: April 28, 2024 Attending Provider at Admission: Jason Wilkins DO Attending Provider at Discharge: Jason Wilkins DO Consults: Dr. Kapadia?hospitalist Primary Care Provider: Charla Chu MD Diagnoses at Discharge Discharge Diagnosis (1) S/P total knee arthroplasty: Status: Acute Reason for Visit Reason for Visit: M17.12 Brief History: Status post left total knee arthroplasty?Joni robotic assisted Hospital Course Hospital Course Patient presented to the preoperative holding area with plan for left total knee arthroplasty after patient has been worked up in the outpatient setting for failed conservative treatment of left knee degenerative joint disease. Once cleared by anesthesia for surgery patient subsequently was taken back to the operative suite underwent anesthesia per anesthesia department and then subsequently underwent a left total knee arthroplasty. Procedure was performed without any complications patient was taken to PACU in stable condition patient recovered well in PACU and then was admitted to the floor postoperatively internal medicine was consulted and on board for medical management and assistance with care. Patient received appropriate PT/OT, postoperative antibiotics, pain control, postoperative DVT prophylaxis will be done by resuming his home Eliquis. Elevation and ice. Patient encouraged for knee range of motion allowed weightbearing as tolerated to the operative lower extremity. Dressing was changed as needed, labs were monitored daily. Patient recovered well postoperatively and worked well and progressed well with therapy. It was determined on postoperative day 1 the patient was stable for discharge from an orthopedic standpoint and medicine. Patient was comfortable with discharge and plan was discharged home. Patient received appropriate discharge instructions as well as pain medication and DVT prophylaxis postoperatively will be resumed on his home Eliquis. Patient started up on his half dose today and will work up to starting his normal home dose tomorrow. This was coordinated with hospitalist as well as patient understand and agree with current plan. All questions answered.. Given appropriate instructions for dressing management. Patient will follow-up with Dr. Wilkins/orthopedics in the office in 2 weeks. All questions answered. Understand if there is any issues questions or concerns and contact the office. Physical Exam Narrative: Examination of the left knee examination dressings noted in place clean dry and intact good seal with yanni dressing. Patient's distal pulses are palpable normal postoperative swelling perspective the knee patient is able to wiggle toes plantarflex and dorsiflex ankle sensations intact light touch distally. Calf soft nontender Urinary Catheter Management: Avalos Latex: Cath Placed During This Visit: yes, but has since been removed by the nurse Reason for Continuing Indwelling Catheter: Decision to DC Catheter Urinary Catheter Date of Insertion: 04/27/24 Urinary Catheter Time of Insertion: 11:03 Date Urinary Catheter Removed: 04/28/24 Time Urinary Catheter Discontinued: 06:20 Discharge Data Studies Completed and Pending Completed Studies During Hospitalization Category Date Time Status XR knee LT 1-2V [id number] Routine Exams 04/27/24 13:14 Completed Pending at discharge Category Date Time Status Basic Metabolic Panel AM LABS Lab 04/29/24 04:00 Ordered Basic Metabolic Panel AM LABS Lab 04/30/24 04:00 Ordered Complete Blood Count w/Auto AM LABS Lab 04/29/24 04:00 Ordered Complete Blood Count w/Auto AM LABS Lab 04/30/24 04:00 Ordered Type and Screen Routine Lab 04/27/24 09:06 Uncollected Radiology Impressions Knee X-Ray 04/27/24 13:14 IMPRESSION: 1. Complete left knee arthroplasty in adequate anatomic alignment and without complications. 2. Expected soft tissue swelling and soft tissue emphysema (postsurgical changes). Laboratory Results WBC 13.82 10^3/uL (3.29-11.43) H 04/28/24 04:41 RBC 3.39 10^6/uL (3.85-5.65) L 04/28/24 04:41 Hgb 13.30 g/dL (11.27-16.99) 04/28/24 04:41 Hct 40.6 % (37-53) 04/28/24 04:41 MCV 119.8 fl (82-101) H 04/28/24 04:41 MCH 39.2 pg (27-33) H 04/28/24 04:41 MCHC 32.8 g/dL (30-55) 04/28/24 04:41 RDW 13.2 % (12.1-15.1) 04/28/24 04:41 Plt Count 297 10^3/cmm (157-399) 04/28/24 04:41 MPV 9.8 fL (7.4-10.4) 04/28/24 04:41 Neut % (Auto) 88.1 % 04/28/24 04:41 Lymph % (Auto) 4.3 % 04/28/24 04:41 Childress % (Auto) 5.8 % 04/28/24 04:41 Eos % (Auto) 0.4 % 04/28/24 04:41 Baso % (Auto) 0.2 % 04/28/24 04:41 Neut # (Auto) 12.17 10^3/uL (1.8-7.7) H 04/28/24 04:41 Lymph # (Auto) 0.6 10^3/uL (0.8-4.8) L 04/28/24 04:41 Childress # (Auto) 0.8 10^3/uL (0.2-0.9) 04/28/24 04:41 Eos # (Auto) 0.1 10^3/uL (0.0-0.8) 04/28/24 04:41 Baso # (Auto) 0.0 10^3/uL (0.0-0.1) 04/28/24 04:41 Nucleated RBC % (auto) 0 % 04/28/24 04:41 Nucleated RBCs # 0.0 /100WBC 04/28/24 04:41 Sodium 137 mmol/L (136-145) 04/28/24 04:41 Potassium 4.2 mmol/L (3.5-5.1) 04/28/24 04:41 Chloride 103 mmol/L (98-107) 04/28/24 04:41 Carbon Dioxide 23 mmol/L (22-29) 04/28/24 04:41 Anion Gap 15.2 (5-19) 04/28/24 04:41 BUN 25 mg/dL (8-23) H 04/28/24 04:41 Creatinine 1.4 mg/dL (0.7-1.2) H 04/28/24 04:41 GFR Calculation Not Reportable 04/28/24 04:41 Glucose 140 mg/dL (65-115) H 04/28/24 04:41 POC Glucose 137 mg/dL (70-110) H 04/28/24 10:30 Calculated Osmolality 291 mOsm/kg (285-295) 04/28/24 04:41 Calcium 7.9 mg/dL (8.5-10.5) L 04/28/24 04:41 Blood Type O Positive 04/27/24 09:55 Rho(D) Type Rh positive 04/27/24 09:55 Antibody Screen Negative 04/27/24 09:55 Vitals Last Vital Signs Temp 97.5 F L 04/28/24 11:28 Pulse 86 04/28/24 11:28 Resp 17 04/28/24 11:28 BP 101/58 04/28/24 11:28 Pulse Ox 93 04/28/24 11:28 O2 Del Method Room Air 04/28/24 11:28 O2 Flow Rate 2 04/27/24 14:00 Discharge Plan Discharge Patient Disposition: Home Health Service Condition: Stable Prescriptions: New calcium carbonate-vitamin D3 [Calcium 600 + D(3)] 600 mg-10 mcg (400 unit) tablet 1 tab PO DAILY 30 Days Qty: 30 0RF Continued hydroxyzine HCl 25 mg tablet 50 mg PO BID PRN (Reason: Itching) carvedilol 25 mg tablet 25 mg PO DIRECTED Rx Instructions: Take 1/2 tab every morning and 1 tab every evening aspirin 325 mg tablet 325 mg PO DAILY Hold Instructions: Resume on 01/25/24. finasteride 5 mg tablet 5 mg PO DAILY Qty: 90 2RF tamsulosin 0.4 mg capsule 0.4 mg PO BID Qty: 180 2RF magnesium oxide 400 mg magnesium capsule 400 mg PO DAILY Qty: 90 2RF hydroxyurea 500 mg capsule 500 mg PO BID Qty: 180 0RF Rx Instructions: Take 1 capsule by mouth twice daily fluticasone propionate 50 mcg/actuation spray,suspension 2 spray intranasal DAILY PRN (Reason: allegy) Rx Instructions: administer into each nostril cetirizine [Zyrtec] 10 mg tablet 10 mg PO DAILY diphenhydramine HCl [Benadryl Allergy] 25 mg tablet 25 mg PO DAILY (DME) [facility] See Rx Instructions .Route Qty: 1 0RF Rx Instructions: 1 nebulizer and all required equipment As directed (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) 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, right knee See Rx Instructions .Route .MEDSUPPLY Qty: 1 0RF Rx Instructions: As directed sertraline 50 mg tablet 100 mg PO DAILY Qty: 60 4RF Rx Instructions: TAKE TWO TABLETS BY MOUTH DAILY nystatin-triamcinolone 100,000-0.1 unit/g-% cream 1 applic topical BID Qty: 60 3RF ropinirole 2 mg tablet 2 mg PO TID Qty: 90 2RF pantoprazole [Protonix] 40 mg tablet,delayed release (DR/EC) 40 mg PO BID 42 Days Qty: 84 1RF (DME) Relion Confirm-Micro Strip See Rx Instructions .Route Qty: 100 0RF Rx Instructions: As directed check BG 3x daily (DME) blood-glucose meter [ReliOn Micro Glucose Monitor] Kit See Rx Instructions .Route Qty: 1 0RF Rx Instructions: As directed ipratropium-albuterol 0.5 mg-3 mg(2.5 mg base)/3 mL solution for nebulization 3 ml inhalation Q4H PRN (Reason: wheezing) Qty: 180 3RF metolazone 2.5 mg tablet 2.5 mg PO .every other day Qty: 90 2RF spironolactone 25 mg tablet 25 mg PO DAILY Qty: 90 3RF furosemide 40 mg tablet 40 mg PO DAILY Qty: 120 3RF Rx Instructions: Take 40mg daily. May take extra 40mg for increased swelling. (DME) OneTouch Ultra Test Strip See Rx Instructions .ROUTE .COMPLEX Qty: 100 0RF Dose Instruction: USE 1 STRIP TO CHECK GLUCOSE ONCE DAILY Rx Instructions: USE 1 STRIP TO CHECK GLUCOSE ONCE DAILY (DME) lancets [OneTouch Delica Plus Lancet] 33 gauge misc See Rx Instructions .ROUTE .COMPLEX Qty: 100 1RF Dose Instruction: USE 1 TO CHECK GLUCOSE ONCE DAILY *E11.65* Rx Instructions: USE 1 TO CHECK GLUCOSE ONCE DAILY *E11.65* Anoro Ellipta 62.5-25 mcg/actuation blister with device 1 inh inhalation DAILY Rx Instructions: Inhale 1 puff by mouth once daily potassium chloride 10 mEq tablet extended release 20 meq PO DAILY Rx Instructions: TAKE TWO TABLETS BY MOUTH TWICE DAILY, patient states on 04/23/24 he takes once a day Jardiance 10 mg tablet 20 mg PO DAILY Rx Instructions: Take 2 tablets by mouth once daily Ozempic 2 mg/dose (8 mg/3 mL) pen injector 2 mg SUBCUT .Q7D Rx Instructions: INJECT 2mg SUBCUTANEOUSLY EVERY 7 DAYS Held Eliquis 5 mg tablet 5 mg PO BID Qty: 180 3RF Hold Instructions: Resume on 01/25/24. No Action albuterol sulfate [Ventolin HFA] 90 mcg/actuation HFA aerosol inhaler 2 puff INHALATION Q6H PRN (Reason: Shortness Of Breath) Qty: 8.5 11RF hydrocodone-acetaminophen 7.5-325 mg tablet 1 tab PO Q6H PRN (Reason: pain postop) 7 Days Qty: 28 0RF Hold Instructions: Doctor's Order simvastatin 20 mg tablet See Rx Instructions .ROUTE .COMPLEX Qty: 90 3RF Dose Instruction: Take 1 tablet by mouth once daily Rx Instructions: Take 1 tablet by mouth once daily tramadol 50 mg tablet 100 mg PO Q8H PRN (Reason: pain) 7 Days Qty: 42 0RF Rx Instructions: 1 tab mild pain 2 tabs moderate/severe Discharge Orders: Discharge Order (Routine); Ordered 04/28/24 Ordered By: Jason Wilkins Other Ambulatory Orders: DME: Walker (Order) Location: None Selected Ordered By: Jason Wilkins [facility] [place] [facility] ([facility]) [Outside] Alejandro Wilkins PA [Physician Repair Mechanic] - 05/12/24 9:30 am Charla Chu MD [Primary Care Provider] - (We have notified your physician's clinic of the need for a follow-up appointment to be scheduled. If you have not heard from them within the next 2 business days, please call them directly. ) Discharge Diet: Regular Discharge Activity: Limit activity as instructed and Use walker/crutches as instructed Patient Instructions: Cephalexin (By mouth), Hydrocodone/Acetaminophen (By mouth), Acute Wound Care (DC), Total Knee Replacement (GEN), Opioid Safety, Post Anesthesia Care Activity Restrictions/Additional Instructions: Orthopedic discharge instructions: Yanni Dressing--Keep dressing on and dry. After 3 days you can remove some of the dressing and shower. disconnect battery pack when showering. Yanni dressing will stay on until follow up appt in 2 weeks. The battery pack for the dressing will at 5-7 days. Battery pack can be removed and discarded once batteries . Patient may weight-bear as tolerate to the operative extremity Utilize walker as needed Encourage knee range of motion Ice and elevate as needed for pain and swelling Take pain medication as prescribed (call the office if this does not work and need to switch medications) Take antinausea medication as needed Pain medication can cause constipation. take iabm-dop-nqgmrwz stool softeners and or MiraLAX. Continue taking your previously prescribed Eliquis after discharge from hospital (would recommend today taking 2.5 mg Eliquis this evening and can resume home Eliquis of 5 mg twice daily starting tomorrow morning) May supplement for pain with ibuprofen urfm-tjm-tcfdgov as needed No baths or soaks Follow-up in the orthopedic office in 2 weeks Contact the office for any questions or concerns Discharge Attestations Time Spent in Discharge Care*: less than 30 min Quality Metrics Clinical Quality Measures [ No reported AMI, CVA or VTE this stay] Coding Level of Care Code Acute Code for Chg Fwd Diagnoses S/P total knee arthroplasty Z96.659
[2024-04-28] MEDS: apixaban 5 mg Tablet 2.5 MG PO (13:46)
--- NOTE | 2024-04-29 06:47 | PC.NURSE ---
Oxy Waste: Oxy 5mg wasted with MARGOTH Bhardwaj after the patient was discharged. Narcotic could not be returned or wasted in the pyxis. Pharmacy contacted and instructions were given to put the pill in the drug buster of the nurse's station with a second nurse witness. This was performed on 04/28/24 at 20:00.
== END 2024-04-28 14:32 | disposition home health service (06) ==
LOC: MEDSURG 14:40
PROVIDERS: Physician Assistant; Admitting Provider Student in an Organized Health Care Education/Training Program; PCP Family Medicine; Visit Provider Student in an Organized Health Care Education/Training Program
PROC: 8E0Y0CZ Robotic Assisted Procedure of Lower Extremity, Open Approach (ICD-10-PCS; CPT 27447; principal; 2024-04-27 10:05)
DX: M17.12 Unilateral primary osteoarthritis, left knee (principal); J44.9 Chronic obstructive pulmonary disease, unspecified; G47.30 Sleep apnea, unspecified; E11.22 Type 2 diabetes mellitus with diabetic chronic kidney disease; I13.0 Hypertensive heart and chronic kidney disease with heart failure and stage 1 through stage 4 chronic kidney disease, or unspecified chronic kidney disease; N18.9 Chronic kidney disease, unspecified; I50.30 Unspecified diastolic (congestive) heart failure; K21.9 Gastro-esophageal reflux disease without esophagitis; E11.9 Type 2 diabetes mellitus without complications; E78.5 Hyperlipidemia, unspecified; E66.01 Morbid (severe) obesity due to excess calories; Z68.42 Body mass index [BMI] 45.0-49.9, adult; I48.91 Unspecified atrial fibrillation; Z87.891 Personal history of nicotine dependence
CPT/HCPCS: 27447; 20985; 36415; 36416; 51702; 73560; 80048; 82962; 85025; 86850; 86900; 94640; 96372; 97110; 97116; 97161; C1776; G0378; J0131; J0171; J0690; J1171; J1815; J1885; J2250; J2371; J2704; J2795; J3370; J7030; J7120; P9045

== ENCOUNTER → 2024-05-12 09:13 | Outpatient (BNVA) | payer MEDICARE, SELFPAY | PROVIDERS: PCP Family Medicine; Visit Provider Physician Assistant | DX: Z96.652 Presence of left artificial knee joint (principal) | CPT/HCPCS: 73560; 73565; 99024 ==

== ENCOUNTER 2024-05-19 06:00 | Outpatient (RCR) | payer MEDICARE, SELFPAY | END 2024-05-23 23:59 | disposition home or self-care (01) | LOC: TPT 06:00 | PROVIDERS: PCP Family Medicine; Visit Provider Student in an Organized Health Care Education/Training Program | DX: Z98.890 Other specified postprocedural states (principal) | CPT/HCPCS: 97162 ==

== ENCOUNTER 2024-05-24 06:00 | Outpatient (RCR) | payer MEDICARE, SELFPAY | END 2024-06-23 23:59 | disposition home or self-care (01) | LOC: TPT 06:00 | PROVIDERS: PCP Family Medicine; Visit Provider Student in an Organized Health Care Education/Training Program | DX: Z98.890 Other specified postprocedural states (principal) | CPT/HCPCS: 97110; 97140 ==

== ENCOUNTER 2024-06-03 15:50 | Oncology outpatient (recurring) (ONCR) | payer MEDICARE, SELFPAY ==
--- NOTE | 2024-04-29 06:42 | PC.NURSE ---
Oxy 5mg wasted with Charge Nurse after patient was discharged. Narcotic could not be returned or wasted in xis, pharmacy was contacted and instructions were given to put the medication in the drug buster of the nurses station with a second nurse witness. This was performed on 04/28/24 at 20:00.
--- NOTE | 2024-06-03 16:30 | CT_ITS ---
WS: [id number] LDCT LUNG CANCER SCREENING HISTORY: former smoker; quit 12 yrs ago; 40pk yr hx; screening TECHNIQUE: Axial imaging performed from the apices to 1 cm below the costophrenic angles. Coronal and sagittal reformats are submitted with axial MIP series. All CT scans at [facility] use at least one of these dose optimization techniques: automated exposure control; mA and/or kV adjustment per patient size (includes targeted exams where dose is matched to clinical indication); or iterativ e reconstruction. DLP: 206.31 mGy.cm DIvol: Mean CTDIvol: 5.30 (mGy) COMPARISON: 01/30/2022 Diagnostic quality: Breathing motion artifact. Lungs: No pulmonary mass or nodule identified. Small nodules may be obscured with this amount of selvin thing motion artifact. No endobronchial lesions. Heart: Normal size heart with no pericardial effusion.. Other findings: Pulmonary artery is markedly dilated measuring 4.9 cm consistent with pulmonary hyper tension. Mildly ectatic unchanged thoracic aorta with atherosclerosis. No lymph nodes are identified. Bilateral gynecomastia. Small hiatal hernia. Increase in thoracic kyphosis. Degenerative scoliosis. CT/CT lung screening [id number] IMPRESSION: LUNG-RADS: 1S-Negative with Significant Findings FOLLOW UP: 12 Month: Continue annual screening with LDCT OTHER FINDINGS (S MODIFIER): Dilated pulmonary artery consistent with pulmonary hypertension. Similar to the prior study.
== END 2024-06-23 23:59 | disposition home or self-care (01) ==
LOC: ONCMED 15:51 → RAD 15:52 → ONCMED 06-04 09:36
PROVIDERS: PCP Family Medicine; Visit Provider Family Medicine
DX: D45 Polycythemia vera (principal); D50.9 Iron deficiency anemia, unspecified; Z79.82 Long term (current) use of aspirin; Z79.899 Other long term (current) drug therapy; Z79.64 Long term (current) use of myelosuppressive agent; I50.9 Heart failure, unspecified; M17.11 Unilateral primary osteoarthritis, right knee; F17.211 Nicotine dependence, cigarettes, in remission
CPT/HCPCS: 71271

== ENCOUNTER 2024-06-24 06:00 | Outpatient (RCR) | payer MEDICARE, SELFPAY | END 2024-07-24 23:59 | disposition home or self-care (01) | LOC: TPT 06:00 | PROVIDERS: PCP Family Medicine; Visit Provider Student in an Organized Health Care Education/Training Program | DX: Z98.890 Other specified postprocedural states (principal) | CPT/HCPCS: 97110; 97140 ==

== ENCOUNTER → 2024-06-25 10:39 | Outpatient (BNVA) | payer MEDICARE, SELFPAY | PROVIDERS: PCP Family Medicine; Visit Provider Internal Medicine | DX: D45 Polycythemia vera (principal) | CPT/HCPCS: 80053; 85025 ==

== ENCOUNTER → 2024-06-26 09:33 | Outpatient (BNVA) | payer MEDICARE, SELFPAY | PROVIDERS: PCP Family Medicine; Visit Provider Physician Assistant | DX: T84.89XA Other specified complication of internal orthopedic prosthetic devices, implants and grafts, initial encounter (principal); Z96.652 Presence of left artificial knee joint; Y79.2 Prosthetic and other implants, materials and accessory orthopedic devices associated with adverse incidents | CPT/HCPCS: 73560; 73565; 99024 ==

== ENCOUNTER 2024-07-01 12:00 | Oncology outpatient (recurring) (ONCR) | payer MEDICARE, SELFPAY ==
[2024-07-01 12:28] LABS: Basophils # 0.1 10^3/uL (0.0-0.1); Basophils % 0.9 %; Eosinophils # 0.2 10^3/uL (0.0-0.8); Eosinophils % 2.1 %; Hematocrit 45.1 % (37-53); Lymphocytes # 1.2 10^3/uL (0.8-4.8); Lymphocytes % 11.3 %; Mean Corpuscular HGB Conc 32.2 g/dL (30-55); Mean Corpuscular Hemoglobin 37.1 pg (27-33); Mean Corpuscular Volume 115.3 fl (82-101); Mean Platelet Volume 9.3 fL (7.4-10.4); Monocytes # 0.5 10^3/uL (0.2-0.9); Neutrophils # 8.36 10^3/uL (1.8-7.7); Neutrophils % 79.2 %; Nucleated Red Blood Cells % 0 %; Platelet Count 354 10^3/cmm (157-399); Red Blood Count 3.91 10^6/uL (3.85-5.65); Red Cell Distribution Width 13.6 % (12.1-15.1); White Blood Count 10.55 10^3/uL (3.29-11.43)
[2024-07-01 12:45] LABS: Alanine Aminotransferase 22 U/L (0-41); Alkaline Phosphatase 117 U/L (40-130); Anion Gap 13.6 (5-19); Aspartate Amino Transferase 19 U/L (0-40); Blood Urea Nitrogen 24 mg/dL (8-23); Carbon Dioxide 28 mmol/L (22-29); Chloride 101 mmol/L (98-107); Creatinine Clr Calc Pharmacy 73.4838; Globulin 3.1 g/dL (1.3-4.6); Glucose 164 mg/dL (65-115); Iron 42 ug/dL (59-158); Osmolality Calculated 294 mOsm/kg (285-295); Percent Saturation 14.3 % (20-50); Potassium 4.6 mmol/L (3.5-5.1); Sodium 138 mmol/L (136-145); Total Bilirubin 0.6 mg/dL (0.15-1.2); Total Iron Binding Capacity 292 mcg/dl; Total Protein 7.1 g/dL (6.6-8.7); Unsaturated Iron Binding 250 ug/dL (112-347)
== END 2024-07-24 23:59 | disposition home or self-care (01) ==
PROVIDERS: PCP Family Medicine; Visit Provider Internal Medicine
DX: D45 Polycythemia vera (principal); Z79.82 Long term (current) use of aspirin; Z79.899 Other long term (current) drug therapy; Z79.64 Long term (current) use of myelosuppressive agent
CPT/HCPCS: 36415; 80053; 83540; 83550; 85025; 99213

== ENCOUNTER 2024-07-25 06:30 | Outpatient (RCR) | payer MEDICARE, SELFPAY | END 2024-08-21 23:59 | disposition home or self-care (01) | LOC: TPT 06:30 | PROVIDERS: PCP Family Medicine; Visit Provider Student in an Organized Health Care Education/Training Program | DX: Z98.890 Other specified postprocedural states (principal) | CPT/HCPCS: 97110; 97164 ==

== ENCOUNTER → 2024-07-28 09:08 | Outpatient (BNVA) | payer MEDICARE, SELFPAY | PROVIDERS: PCP Family Medicine; Visit Provider Physician Assistant | DX: Z96.652 Presence of left artificial knee joint (principal) | CPT/HCPCS: 99213 ==

== ENCOUNTER 2024-08-22 06:00 | Outpatient (RCR) | payer MEDICARE, SELFPAY | END 2024-09-21 23:59 | disposition home or self-care (01) | LOC: TPT 06:00 | PROVIDERS: PCP Family Medicine; Visit Provider Student in an Organized Health Care Education/Training Program | DX: Z98.890 Other specified postprocedural states (principal) | CPT/HCPCS: 97110 ==

== ENCOUNTER → 2024-08-27 09:24 | Outpatient (BNVA) | payer MEDICARE, SELFPAY | PROVIDERS: PCP Family Medicine; Visit Provider Nurse Practitioner Family | DX: R07.9 Chest pain, unspecified (principal) | CPT/HCPCS: 93005 ==

== ENCOUNTER 2024-09-22 06:00 | Outpatient (RCR) | payer MEDICARE, SELFPAY | END 2024-09-28 09:02 | disposition home or self-care (01) | LOC: TPT 06:00 | PROVIDERS: PCP Family Medicine; Visit Provider Student in an Organized Health Care Education/Training Program | DX: Z98.890 Other specified postprocedural states (principal) | CPT/HCPCS: 97110 ==

== ENCOUNTER 2024-10-05 15:50 | Outpatient (CLI) | payer MEDICARE, SELFPAY ==
--- NOTE | 2024-10-05 15:59 | XRR_ITS ---
PROCEDURE INFORMATION: Exam: XR Abdomen Exam date and time: 10/05/2024 4:11 PM Age: 74 years old Clinical indication: Prior surgery; Surgery date: 6+ months; Surgery type: Gb; Diarrhea one day and then constipation the next day for the last 4 weeks. Abdominal pain. HX of blood cancer; Additional info: Overflow diarrhea; Constipation TECHNIQUE: Imaging protocol: Radiologic exam of the abdomen. Views: Frontal supine view of the abdomen. 1 View. COMPARISON: CT lung screening [id number] 06/03/2024 4:03 PM FINDINGS: Gastrointestinal tract: Normal. No bowel dilation. Normal stool amount. Bones/joints: Unremarkable. XR/XR KUB [id number] IMPRESSION: No acute findings.
== END 2024-10-05 15:51 | disposition home or self-care (01) ==
LOC: RAD 15:53
PROVIDERS: PCP Family Medicine; Visit Provider Family Medicine
DX: R19.7 Diarrhea, unspecified (principal); K59.01 Slow transit constipation
CPT/HCPCS: 74018

== ENCOUNTER → 2024-10-06 09:04 | Outpatient (BNVA) | payer MEDICARE, SELFPAY | PROVIDERS: PCP Family Medicine; Visit Provider Physician Assistant | DX: M17.11 Unilateral primary osteoarthritis, right knee (principal); Z96.652 Presence of left artificial knee joint | CPT/HCPCS: 73560; 73565; 99214 ==

== ENCOUNTER 2024-10-14 08:51 | Outpatient (CLI) | payer MEDICARE, SELFPAY ==
[2024-10-14 09:37] LABS: Estmated Average Glucose 126
[2024-10-14 09:45] LABS: Alanine Aminotransferase 23 U/L (0-41); Albumin Level 3.9 g/dL (3.5-5.2); Alkaline Phosphatase 117 U/L (40-130); Anion Gap 15.3 (5-19); Aspartate Amino Transferase 17 U/L (0-40); Blood Urea Nitrogen 29 mg/dL (8-23); Calcium 8.3 mg/dL (8.5-10.5); Carbon Dioxide 23 mmol/L (22-29); Chloride 102 mmol/L (98-107); Chol HDL Ratio 3.68 mg/dL (1.0-5.00); Cholesterol 92 mg/dL (0-200); Globulin 2.9 g/dL (1.3-4.6); Glucose 143 mg/dL (65-115); HDL Cholesterol 25 mg/dL (60-100); LDL Cholesterol Calculated 41 mg/dL (50-129); LDL HDL Ratio 1.64 RATIO (0.00-3.22); Osmolality Calculated 290 mOsm/kg (285-295); Potassium 4.3 mmol/L (3.5-5.1); Sodium 136 mmol/L (136-145); Total Bilirubin 0.5 mg/dL (0.15-1.2); Total Protein 6.8 g/dL (6.6-8.7); Triglycerides 131 mg/dL (0-150)
[2024-10-14 09:45] LABS: Creatinine Urine, Random 113 mg/dL (39-259); Microalbum Creatinine Ratio Ur 9 mg/dL (0-20); Microalbumin Random Urine 1 ug/dL (0-20)
== END 2024-10-14 08:52 | disposition home or self-care (01) ==
PROVIDERS: PCP Family Medicine; Visit Provider Internal Medicine
DX: E11.22 Type 2 diabetes mellitus with diabetic chronic kidney disease (principal); E11.65 Type 2 diabetes mellitus with hyperglycemia; N18.2 Chronic kidney disease, stage 2 (mild); R32 Unspecified urinary incontinence; G62.9 Polyneuropathy, unspecified; E78.2 Mixed hyperlipidemia; E11.9 Type 2 diabetes mellitus without complications; R11.0 Nausea; I10 Essential (primary) hypertension
CPT/HCPCS: 36415; 80053; 80061; 82044; 83036; 99214

== ENCOUNTER 2024-10-15 07:39 | Oncology outpatient (recurring) (ONCR) | payer MEDICARE, SELFPAY ==
--- NOTE | 2024-10-15 08:15 | CT_ITS ---
WS: [id number] CT RIGHT KNEE, NONCONTRAST [facility] TECHNIQUE: Noncontrast CT of the RIGHT knee to include the RIGHT hip and ankle. CLINICAL INFORMATION: RIGHT TOTAL KNEE ARTHROPLASTY DLP: 988.[address] scans at [facility] use at least one of these dose optimization techniques: automated exposure control; mA and/or kV adjustment per patient size (includes targeted exams where dose is matched to clinical indication); or iterative reconstruction. FINDINGS: Advanced tricompartment arthritis RIGHT knee worse in the medial joint compartment. Enlarged calcified prostate. Recommend correlation PSA. Prostate measures 4.6 cm. Degenerative arthritis sacroiliac joints. Small fat-containing umbilical hernia. Small suprapatellar effusion. Hypertrophic patella. Small popliteal cyst. CT/CT knee RT [facility] [id number] IMPRESSION: Images obtained for preoperative purposes.
== END 2024-10-21 23:59 | disposition home or self-care (01) ==
LOC: RAD 07:41 → ONCMED 11:06
PROVIDERS: PCP Family Medicine; Visit Provider Student in an Organized Health Care Education/Training Program
DX: M17.11 Unilateral primary osteoarthritis, right knee (principal); M71.21 Synovial cyst of popliteal space [Baker], right knee; N40.0 Benign prostatic hyperplasia without lower urinary tract symptoms; K42.9 Umbilical hernia without obstruction or gangrene
CPT/HCPCS: 73700

== ENCOUNTER → 2024-10-19 10:58 | Outpatient (BNVA) | payer MEDICARE, SELFPAY | PROVIDERS: PCP Family Medicine; Visit Provider Student in an Organized Health Care Education/Training Program | DX: Z01.818 Encounter for other preprocedural examination (principal) | CPT/HCPCS: 80053; 81000; 85025 ==

== ENCOUNTER 2024-10-26 08:41 | Oncology outpatient (recurring) (ONCR) | payer MEDICARE, SELFPAY ==
--- NOTE | 2024-10-26 | ECG_ITS ---
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 Interpretive Statements Lung unchanged pre/post procedure; Intraprocedure shortess of breath; Symptoms resoled by discharge PROCEDURE: At the baseline, the EKG revealed atrial fibrillation with controlled ventricular response rate. Right bundle branch block pattern.. The baseline heart was 70 bpm with a blood pressue of 122/83 mm of Hg Lexiscan was infused over a period of 20 seconds. A total of 0.4 milligrams of Lexiscan was infused. The stress phase was continued for a total of 5 minutes. Heart rate at the end of the stress phase was 88 bpm with a blood pressure 104/64 mm of Hg. The EKG at the peak infusion revealed no significant changes. Sestamibi was injected 20 seconds after the Lexiscan infusion. Heart rate at the end of the recovery phase was 87 bpm with a blood pressure of 111/58 mm of Hg. CONCLUSION: 1. No significant EKG changes with the LexiScan infusion 2. No LexiScan induced chest pain or cardiac arrhythmia 3. Normal blood pressure and heart rate response 4. Sestamibi/sestamibi perfusion scan pending; see separate report. Electronically Signed On 11-02-2024 14:38:56 CDT by Sanjuana uQick M.D. [email or web address]
[2024-10-26 08:56] VITALS: BMI 43.7
--- NOTE | 2024-10-26 08:59 | NMCV_ITS ---
NM sergio perf SPECT r/s* [id number] Seferino Rashid Age: 74 Gender: M : 1950 Exam Date: 10/26/2024 09:54 Ordering Phys: Babita Marquez NP Technologist: ALONSO Brady Exam Location: [facility] Indications: cp STRESS TEST Please see separate stress test report in [facility] for full findings IMAGE PROTOCOL Rest/Stress 1 Lexiscan Day Radiopharmaceutical Dose (mCi) Administration Site Administered by Rest: Tc-99m 10.4 IV Karla Thrasher, LACQUER MACHINE FEEDER Sestamibi Stress:Tc-99m 32.4 IV Karla Anna Marie, LACQUER MACHINE FEEDER Sestamibi Rest: 10/26/2024 60 Discovery 630 Stress: 10/26/2024 30 Discovery 630 0.4mg Lexiscan. Supine position only as patient was unable to lay prone. SPECT RESULTS Technical Quality: Good Raw Data Analysis: Soft tissue attenuation Image Corrections: No attenuation or motion correction applied Summed Stress Score: 20 Summed Rest Score: 10 Summed Difference Score: 10 PERFUSION FINDINGS Moderate to large area of moderately decreased tracer uptake involving the mid and apical inferior, basal and mid inferolateral, basal and mid anterolateral, mid and apical anterior, apical lateral and LV apex. Significant reversibility was noted in the inferolateral, anterolateral and apical regions FUNCTIONAL RESULTS (calculated via Gated SPECT) Stress Image LV EF (%): 61 Stress EDV (mL):146 TID: 1.06 Stress ESV (mL):57 FUNCTIONAL FINDINGS: Segmental wall motion analysis revealed mild hypokinesia of the LV apex IMPRESSIONS 1. Myocardial perfusion imaging revealing moderately large area of moderately decreased tracer uptake involving the inferior, inferolateral, anterolateral, anterior and apical regions with significant reversibility suggesting ischemia predominantly in the distribution of the left circumflex artery/left artery descending artery(summed difference score of 10 out of 20) 2., Normal LV ejection fraction of 61%. 3. LV wall motion analysis revealing mild hypokinesia of the LV apex. 4. Mildly dilated LV cavity with end-systolic volume of 57 mL Compared to the study from 01/17/2022, ischemia appears to be new Dr Sanjuana Quick MD [facility] (Electronically Signed) Final Date: 26 Oct 2024 14:04 S
[2024-10-26] MEDS: regadenoson 0.4 Mg/5 ml Syringe IVP (10:26)
[2024-10-26 10:42] VITALS: BP 111/72; PULSE 82
--- NOTE | 2024-10-26 13:30 | USCV_ITS ---
Seferino Rashid Age: 74 Gender: M : 1950 Exam Date: 10/26/2024 11:31 Ordering Phys: Babita Marquez NP Technologist: Exam Location[place] [facility] [place] Indication: cp BP: 125 / 75 HR: 115 Rhythm: Sinus Technical Quality: MEASUREMENTS (Male / Female) Normal Values 2D ECHO LV Diastolic Diameter PLAX 4.8 cm 4.2 - 5.9 / 3.9 - 5.3 cm IVS Diastolic Thickness 1.3 cm 0.6 - 1.0 / 0.6 - 0.9 cm IVS Systolic Thickness 1.8 cm LVPW Diastolic Thickness 1.5 cm 0.6 - 1.0 / 0.6 - 0.9 cm LVPW Systolic Thickness 2.0 cm LVOT Diameter 2.0 cm LV Ejection Fraction 2D Teich 57.5 % LV Ejection Fraction MOD 4C 56.7 % LV Ejection Fraction MOD 2C 56.6 % LV Ejection Fraction 2C AL 56.5 % LA Diameter 3.9 cm RA Systolic Volume 4C AL 52.8 ml RA Systolic Volume 4C MOD 50.9 ml LA Sys Volume AL 117.9 cm cubed LA Sys Volume Index AL 44.0 cm cubed/m squared Aorta at Sinotubular Diameter 4.0 cm IVC Diameter 2.6 cm M-MODE LA Ao Ratio MM 1.0 AV Cusp Separation MM 2.0 cm DOPPLER AV Peak Velocity 113.0 cm/s LVOT Peak Velocity 99.0 cm/s AV Area Cont Eq vti 3.4 cm squared AV Area Cont Eq pk 2.8 cm squared MV Peak Velocity 98.0 cm/s MV Area PHT 4.9 cm squared Mitral E to A Ratio 1.2 TR Peak Velocity 221.0 cm/s TR Peak Gradient 19.5 mmHg TV Peak E Velocity 102.0 cm/s PV Peak Velocity 98.0 cm/s FINDINGS Left Ventricle Normal left ventricular size and systolic function, EF 57%. Mild left ventricular hypertrophy. No regional wall motion abnormalities. Right Ventricle The right ventricle is normal in size and function. Right Atrium The right atrium is normal in size. Left Atrium Mildly increased left atrial size. Mitral Valve Thickened mitral valve. Aortic Valve Thickened aortic valve. Tricuspid Valve No gross abnormalities noted Pulmonic Valve No gross abnormalities noted Pericardium Normal pericardium without effusion. Aorta Normal aortic annulus size. Aortic root, at the level of the sinuses measured at 4.05 cm IVC Normal inferior vena cava. CONCLUSIONS Normal left ventricular size and systolic function, EF 57%. Mild left ventricular hypertrophy. No regional wall motion abnormalities. Mildly increased left atrial size. Minimally thickened aortic and mitral valves. Aortic root, upper limit of normal size There is no pericardial effusion. There are no intracardiac masses. Compared to the study from 07/16/2019, there may be a significant change. Dr Sanjuana Quick MD [facility] (Electronically Signed) Final Date: 28 Oct 2024 22:45 S
== END 2024-11-21 23:59 | disposition home or self-care (01) ==
LOC: CDL 08:43 → ONCMED 09:46
PROVIDERS: PCP Family Medicine; Visit Provider Student in an Organized Health Care Education/Training Program
DX: I50.33 Acute on chronic diastolic (congestive) heart failure (principal); R07.9 Chest pain, unspecified; I51.89 Other ill-defined heart diseases; R94.39 Abnormal result of other cardiovascular function study; I51.7 Cardiomegaly
CPT/HCPCS: 36415; 78452; 93017; 93306; 96374; A9500; J2785

== ENCOUNTER 2024-11-17 05:45 | Outpatient (CLI) | payer MEDICARE, SELFPAY ==
[2024-11-17] VITALS (18 sets, daily range): BP systolic 107–140; BP diastolic 64–93; PULSE 68–93; RESP 15–24; TEMP 36.9; O2SAT 90–96; BMI 44.4
--- NOTE | 2024-11-17 06:00 | XACV_ITS ---
Exam Room: 2 Ht: 178 cm Wt: 138 kg BSA: 2.68 m2 Gender: Male : 1950 Any Known Allergies: Other Exam Priority: Routine Procedure(s): Procedure Description: Diagnostic procedure Procedure Description: Left Heart Catheterization Procedure Description: Left ventriculography Procedure Description: Coronary Angiography [facility]; Diagnostic Cath Status: Elective PCI Indication: New Onset Angina <= 2 months Recommendations * Continue medical management. Diagnostic RX Recommendation: medical therapy and/or counseling Ventriculography Ejection Fraction: 60.0 % Pressures Phase:Rest AO : 120 / 66 ( 89 ) @ 8:55:00 AM 120 / 66 ( 89 ) @ 8:55:00 AM LV : 123 / 2 / 19 @ 8:54:00 AM 117 / 0 / 22 @ 8:55:00 AM 117 / 0 / 21 @ 8:55:00 AM Valves Phase:DefaultPhase AV : 0.0 @ 8:00:51 AM AV Mean Gradient: 0.0 @ 8:00:51 AM Clinical Evaluation EBL: 5mL-10mL Procedural Details Procedure Consent Obtained. Admit Source: Out Patient. Pre-Procedure Time Out. Identified patient by full name and date of as verbalized by the patient/guarantor. Does the consent match the physician's order: Yes. Accurate & Complete Informed Consent: Yes. Inpatient/Outpatient History & Physical on Chart: Yes. If H&P is completed, is and addenduem needed: No; If yes, is the addendum complete: N/A. Visualize and Verify Site with Patient/Guarantor: N/A. Relevant Radiology Images available: Yes. The risks, benefits, and alternatives of sedation and/or procedure were discussed by physician. The patient agrees to continue. Procedure started. [facility] Clinical Fraility Score: 3: Managing Well. 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 Chest Pain Symptom Assessment: Typical Angina Symptoms. Correct patient, site and procedure confirmed by cath team. Current diagnosis: Chest Pain, Abnormal stress test. PERRLA. Strong, equal hand story writer bilaterally. Lungs clear x 5 lobes. IV Site on Arrival: 20 gauge in the left anticubital. IV Fluids: 0.9% NaCl at KVO. 0 mL infused prior to radiographer cardiac catheterization. Pre Procedural Pulses: bilateral dorsalis pedis was 2+. Pre Procedural Pulses: bilateral posterior tibial was 2+. Pre Procedural Pulses: bilateral radial was 2+. Oxygen started at 2liters/min via nasal canula. right radial was prepped with chloroprep then draped in the usual sterile fashion. right groin was prepped with chloroprep then draped in the usual sterile fashion. Physician notified. Baseline sample Acquired. HR: 74 BPM. Physician arrived. Physician scrubbed in. Immediate Pre-Procedure Time Out. Correct Patient: Yes; Correct Procedure: Yes; Correct Site: Yes; Correct Patient Position: Yes; Correct Supplies: Yes; Dried Flammable Prep: Yes; Blood Products Available: No;. Lidocaine 1% infiltrated to the right radial. Arterial access obtained. A 5 north k[place] Edouard catheter in over wire. Multiple views taken of left coronary artery. Catheter redirected to the RCA. Multiple views taken of right coronary artery. Catheter removed over the exchange wire. A 5 north korean Angled Pig catheter in over wire. EDP Sample taken: LV 123/2,19; HR: 65 BPM; SpO2: 94%. LV gram performed in SHETTY @ 10 mL/second for a total of 30 mL. EDP Sample taken: LV 117/0,22; HR: 77 BPM; SpO2: 93%. Pullback taken: LV 117/0,21; AO 120/66(89); Mean: 0mmHg, Peak to Peak: 0mmHg, SEP: 7sec/min; HR: 76 BPM; SpO2: 93%. Catheter removed over the exchange wire. Physician scrubbed out. Post Procedure: Pulses reassessed and unchanged. PERRLA. Strong, equal hand story writer bilaterally. No VTE prophylaxis required. Medication's Wasted: Lidocaine 1% = 18 mL. Medication's Wasted: Nitro = 49.8 mg. Medication's Wasted: Heparin = 1000 unit. Medication's Wasted: Other = Versed 1mg, Fentanyl 25mcg. Total IV fluids: 25 mL. A TR Band was successful obtaining hemostatsis at the Right Radial artery insertion site. Post-op diagnosis: Normal Coronaries. Complications: None. Estimated blood loss: 5mL-10mL. Responsiveness - Normal response to verbal stimuli; alert and oriented, PERRLA. Airway - Unaffected, no intervention required; spontaneous ventilation. Circulation: W/N/L, pulses unchanged. Nausea/Vomiting: No. Procedure completed. Patient transferred by stretcher to CPRU. Vital chart was stopped. Access Site Site: Right Radial artery Sheath Size: 6 Fr Hemostasis Method: TR Band Hemostasis Success: Successful Procedure Medications Start: 7:31 AM Stop: 7:31 AM Medication: Versed Amount: 1 mg Route: I.V. Start: 7:31 AM Stop: 7:31 AM Medication: Fentanyl Amount: 50 mcg Route: I.V. Start: 7:40 AM Stop: 7:40 AM Medication: Fentanyl Amount: 25 mcg Route: I.V. Start: 7:40 AM Stop: 7:40 AM Medication: Nitrogylcerin Amount: 200 mcg Route: I.A. Start: 7:43 AM Stop: 7:43 AM Medication: Heparin Amount: 5000 units Route: I.V. I, the attending physician, have reviewed and verified all procedure medications. Yes, all medications given per verbal order History/Risk Factors Hypertension: Yes Dyslipidemia: Yes Peripheral Arterial Disease (PAD): No Myocardial Infarction (IN): No Obesity: Yes Renal Disease: No Tobacco Use: Former Prior Interventions PCI: No CABG: No Valve Surgery: No Report Signatures Finalized by Faby Morales MD on 11/29/2024 10:11 PM
[2024-11-17 06:43] LABS: Basophils # 0.1 10^3/uL (0.0-0.1); Eosinophils # 0.3 10^3/uL (0.0-0.8); Eosinophils % 2.1 %; Hematocrit 47.4 % (37-53); Lymphocytes # 1.5 10^3/uL (0.8-4.8); Lymphocytes % 11.7 %; Mean Corpuscular HGB Conc 31.9 g/dL (30-55); Mean Corpuscular Hemoglobin 35.5 pg (27-33); Mean Corpuscular Volume 111.5 fl (82-101); Mean Platelet Volume 9.9 fL (7.4-10.4); Monocytes # 0.7 10^3/uL (0.2-0.9); Monocytes % 5.6 %; Neutrophils # 9.58 10^3/uL (1.8-7.7); Nucleated Red Blood Cells % 0 %; Platelet Count 396 10^3/cmm (157-399); Red Blood Count 4.25 10^6/uL (3.85-5.65); White Blood Count 12.45 10^3/uL (3.29-11.43)
[2024-11-17] MEDS: diphenhydrAMINE 50 mg Capsule PO (06:55)
[2024-11-17] MEDS: aspirin 325 mg Tablet PO (06:55)
[2024-11-17 06:58] LABS: Anion Gap 13.3 (5-19); Blood Urea Nitrogen 30 mg/dL (8-23); Calcium 9.1 mg/dL (8.5-10.5); Carbon Dioxide 28 mmol/L (22-29); Chloride 99 mmol/L (98-107); Glucose 166 mg/dL (65-115); Osmolality Calculated 292 mOsm/kg (285-295); Potassium 4.3 mmol/L (3.5-5.1); Sodium 136 mmol/L (136-145)
--- NOTE | 2024-11-17 07:28 | W.PM.OPSFHP ---
Same Day Surgery H&P Indication for Procedure/HPI DATE OF PROCEDURE: November 17, 2024 CHIEF COMPLAINT/INDICATIONFOR SURGICAL PROCEDURE: Abnormal stress test. Preop PREOP DIAGNOSIS: Abnormal stress test, preop PLANNED PROCEDURE: Operation Date: 11/17/24 07:00 Proposed Procedures p Cardiac Catheterization - [facility] w/wo LV Coros(Left) - Faby Morales MD 74-year-old male past medical history significant for hypertension hyperlipidemia diabetes mellitus obesity polycythemia for worsening of shortness of breath thought to be angina and because of preop clearance underwent nuclear stress test which turns out to be positive, it is the reason patient is here. Medications/Allergies* Home Medications ?Medication ?Instructions ?Recorded ?Confirmed ?Type hydroxyzine HCl 25 mg tablet 50 mg PO BID PRN Itching 07/26/20 11/17/24 History cetirizine 10 mg tablet (Zyrtec) 10 mg PO DAILY 09/28/22 11/17/24 History diphenhydramine HCl 25 mg tablet 25 mg PO BEDTIME 09/28/22 11/17/24 History (Benadryl Allergy) aspirin 325 mg tablet 325 mg PO DAILY 05/02/23 11/17/24 History fluticasone propionate 50 2 spray intranasal DAILY PRN allegy 01/09/24 11/17/24 History mcg/actuation nasal spray,suspension umeclidinium 62.5 mcg-vilanterol 1 inh inhalation DAILY 01/21/24 11/17/24 History 25 mcg/actuation powdr for inhalation (Anoro Ellipta) carvedilol 25 mg tablet 12.5 mg PO BID 11/13/24 11/17/24 History empagliflozin 10 mg tablet 20 mg PO BID 11/13/24 11/17/24 History (Jardiance) simvastatin 20 mg tablet 20 mg PO DAILY 11/13/24 11/17/24 History Allergies/Adverse Reactions Allergy/AdvReac Type Severity Reaction Status Date / Time cephalexin Allergy Unknown Hives Verified 11/17/24 07:14 levofloxacin (From Levaquin) Allergy Unknown ADR/ALGY-Fl Verified 11/17/24 07:14 ushing oxycodone AdvReac Intermediate ADR-Blurry Verified 11/17/24 07:14 Vision codeine AdvReac Unknown ADR-Blurry Verified 11/17/24 07:14 Vision metaxalone (From Skelaxin) AdvReac Unknown ADR-Blurry Verified 11/17/24 07:14 Vision Current Medications: Generic Name Dose Route Start Last Admin Trade Name Freq PRN Reason Stop Dose Admin Sodium Chloride 1,000 mls @ 50 mls/hr 11/17/24 06:00 11/17/24 07:17 Sodium Chloride 0.9% IV 11/18/24 01:59 Not Given .Q20H ONE Pertinent History/Comorbid Conditions* Medical History (Updated 10/05/24 @ 16:21 by Racheal Chang MD) Constipation by delayed colonic transit Overflow diarrhea Restless leg syndrome COPD (chronic obstructive pulmonary disease) Nicotine dependence, cigarettes, in remission Family hx of colon cancer mother, brother Restrictive lung disease Pulmonary hypertension Type 2 diabetes mellitus sees endo Hyperlipidemia PRV (polycythemia rubra vera) 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 Peripheral neuropathy History of colon polyps Obstructive sleep apnea on CPAP Elevated PSA GERD (gastroesophageal reflux disease) Osteoarthritis Ascending aortic aneurysm Atrial fibrillation Diastolic heart failure HTN (hypertension) Surgical History (Updated 05/26/24 @ 00:00 by ABEL Trevizo) History of total left knee replacement (TKR) Hx of arthroscopy of left knee Hx of bilateral cataract extraction History of cardioversion a fib History of esophagogastroduodenoscopy Status post colonoscopy with polypectomy 6.22.22 hyperplastic polyps but fam hx so f/u 5 yrs S/P appendectomy S/P cholecystectomy Family History (Updated 01/04/22 @ 10:17 by Nicole Haider RN) Diabetes Father Brother Heart failure Mother CAD (coronary artery disease) Mother 50s Clotting disorder Father Dementia Grandfather Bleeding disorder Father Sepsis Father Lung disease Mother Cancer Brother stomach; colon Mother colon; liver Denies family history of Chronic kidney disease (CKD) Suicide Anesthesia complication Stroke Social History Smoking and tobacco/nicotine status: former use of tobacco/nicotine Quit status (tobacco/nicotine): has quit using Year quit tobacco: 2011 - 1PPD x 40 Years Second hand smoke exposure: No Alcohol intake: never Substance/Drug Use: never Lives independently: Yes Household members: spouse and other Details: grown son Marital status: Number of children: 4 Highest education level completed: Some College, No Degree Current occupational status: disabled Previous occupational history: 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; 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 Leisure activites: reading Do you think of yourself as: Straight/Heterosexual Current gender identity: Male Pertinent Exam Findings alert, oriented x 3, clear to auscultation bilaterally, regular rate & rhythm and operative site marked Conscious Sedation Assessment PATIENT ASSESSED PRIOR TO SEDATION, WITH NO CHANGE NOTED: Yes AIRWAY EVAL/ANESTHESIA PLAN: ASA II, Risks, benefits & alternatives of sedation and/or procedure discussed and Patient agrees to continue as planned Recommendations Risks and benefits of procedure reviewed and Patient/family agree to proceed Surgery/Procedure today Other Plans: Patient has been explained all risk-benefit and alternative for the procedure. He understand 2% risk of stroke major bleed. He understand 5 to 6% risk of urgent emergent bypass surgery major minor bleeding infection hematoma pseudoaneurysm contrast induced nephropathy arrhythmia. Patient clearly understood it and would like to proceed with it. Coding Level of Care Code Acute Code for Maryan Masters
--- NOTE | 2024-11-17 08:15 | SUR.PHASEII ---
Received patient from the slab off mill tender. Status post cardiac catheterization via the right radial approach. TR Band in place- 15 ml. Site hemostatic. See PCS documentation for the assessments. Verbal post cath instructions went over with the patient. He understood well. Informed to call for needs. Post op fluids set at 100 ml/hr per verbal order from dr Morales.
--- NOTE | 2024-11-17 11:30 | SUR.PHASEII ---
TR BAND DEFLATED. NO BRUSING OR HEMATOMA NOTED. VERBAL POST CATH INSTRUCTIONS WENT OVER. THEY UNDERSTOOD WELL.
== END 2024-11-17 12:35 | disposition home or self-care (01) ==
PROVIDERS: PCP Family Medicine; Visit Provider Internal Medicine Cardiovascular Disease
DX: R94.39 Abnormal result of other cardiovascular function study (principal); E78.5 Hyperlipidemia, unspecified; E66.9 Obesity, unspecified; Z68.41 Body mass index [BMI] 40.0-44.9, adult; Z87.891 Personal history of nicotine dependence; J44.9 Chronic obstructive pulmonary disease, unspecified; E11.22 Type 2 diabetes mellitus with diabetic chronic kidney disease; I12.9 Hypertensive chronic kidney disease with stage 1 through stage 4 chronic kidney disease, or unspecified chronic kidney disease; N18.9 Chronic kidney disease, unspecified; K21.9 Gastro-esophageal reflux disease without esophagitis
CPT/HCPCS: 36415; 80048; 85025; 93458; 96367; 96374; 99152; 99153; C1769; C1887; C1894; J1644; J2250; J3010; J3490; J7030; J9999; Q0163; Q9967

== ENCOUNTER 2024-12-03 13:09 | Oncology outpatient (recurring) (ONCR) | payer MEDICARE, SELFPAY ==
[2024-12-03 13:44] LABS: Basophils # 0.1 10^3/uL (0.0-0.1); Basophils % 0.7 %; Eosinophils # 0.3 10^3/uL (0.0-0.8); Eosinophils % 3.4 %; Hematocrit 43.7 % (37-53); Lymphocytes # 1.1 10^3/uL (0.8-4.8); Lymphocytes % 11.6 %; Mean Corpuscular HGB Conc 31.8 g/dL (30-55); Mean Corpuscular Hemoglobin 35.3 pg (27-33); Mean Corpuscular Volume 110.9 fl (82-101); Mean Platelet Volume 9.7 fL (7.4-10.4); Monocytes # 0.5 10^3/uL (0.2-0.9); Neutrophils # 7.36 10^3/uL (1.8-7.7); Neutrophils % 78.8 %; Nucleated Red Blood Cells % 0 %; Platelet Count 310 10^3/cmm (157-399); Red Blood Count 3.94 10^6/uL (3.85-5.65); Red Cell Distribution Width 14.4 % (12.1-15.1); White Blood Count 9.36 10^3/uL (3.29-11.43)
[2024-12-03 14:00] LABS: Alanine Aminotransferase 20 U/L (0-41); Albumin Level 3.7 g/dL (3.5-5.2); Alkaline Phosphatase 102 U/L (40-130); Anion Gap 16.7 (5-19); Aspartate Amino Transferase 17 U/L (0-40); Blood Urea Nitrogen 21 mg/dL (8-23); Calcium 8.2 mg/dL (8.5-10.5); Carbon Dioxide 23 mmol/L (22-29); Chloride 104 mmol/L (98-107); Globulin 2.9 g/dL (1.3-4.6); Glucose 152 mg/dL (65-115); Osmolality Calculated 294 mOsm/kg (285-295); Potassium 4.7 mmol/L (3.5-5.1); Sodium 139 mmol/L (136-145); Total Bilirubin 0.7 mg/dL (0.15-1.2); Total Protein 6.6 g/dL (6.6-8.7); Uric Acid 5.1 mg/dL (3.4-7.0)
[2024-12-03 15:07] LABS: Iron 45 ug/dL (59-158); Percent Saturation 15.5 % (20-50); Total Iron Binding Capacity 290 mcg/dl; Unsaturated Iron Binding 245 ug/dL (112-347)
[2024-12-03 16:53] LABS: Lactate Dehydrogenase 152 U/L (135-225)
== END 2024-12-21 23:59 | disposition home or self-care (01) ==
PROVIDERS: PCP Family Medicine; Visit Provider Nurse Practitioner Family
DX: D45 Polycythemia vera (principal); R03.0 Elevated blood-pressure reading, without diagnosis of hypertension; K59.00 Constipation, unspecified; E61.1 Iron deficiency; Z87.891 Personal history of nicotine dependence; G62.9 Polyneuropathy, unspecified; Z79.899 Other long term (current) drug therapy
CPT/HCPCS: 36415; 80053; 83540; 83550; 83615; 84550; 85025; 87086; 99214

== ENCOUNTER → 2025-01-12 09:43 | Outpatient (BNVA) | payer MEDICARE, SELFPAY | PROVIDERS: PCP Family Medicine; Visit Provider Student in an Organized Health Care Education/Training Program | DX: M17.11 Unilateral primary osteoarthritis, right knee (principal); M25.561 Pain in right knee; Z96.652 Presence of left artificial knee joint | CPT/HCPCS: 99214 ==

== ENCOUNTER 2025-01-21 11:27 | Outpatient (CLI) | payer MEDICARE, SELFPAY ==
--- NOTE | 2025-01-21 12:00 | CT_ITS ---
WS: [id number] CT RIGHT KNEE, NONCONTRAST TECHNIQUE: Noncontrast CT of the RIGHT knee to include the RIGHT hip and ankle. CLINICAL INFORMATION: RIGHT TOTAL KNEE ARTHROPLASTY PLANNING DLP: 937.[address] scans at [facility] use at least one of these dose optimization techniques: automated exposure control; mA and/or kV adjustment per patient size (includes targeted exams where dose is matched to clinical indication); or iterative reconstruction. FINDINGS: Advanced tricompartment arthritis RIGHT knee. Hypertrophic patella. Hypertrophic changes along the joint line. Prepatellar and infrapatellar soft tissue edema. Trace joint effusion. Vascular calcification. Enlarged prostate measuring 5.4 cm sigmoid diverticulosis. Fat-containing umbilical hernia. Small lobulated popliteal cyst. CT/CT knee RT [facility] [id number] IMPRESSION: Images obtained for preoperative purposes.
== END 2025-01-21 11:28 | disposition home or self-care (01) ==
LOC: RAD 11:30
PROVIDERS: PCP Family Medicine; Visit Provider Student in an Organized Health Care Education/Training Program
DX: M17.11 Unilateral primary osteoarthritis, right knee (principal); Z01.818 Encounter for other preprocedural examination; N40.0 Benign prostatic hyperplasia without lower urinary tract symptoms
CPT/HCPCS: 73700

== ENCOUNTER 2025-02-10 16:41 | Outpatient (CLI) | payer MEDICARE, SELFPAY ==
--- NOTE | 2025-02-10 17:15 | CT_ITS ---
WS: [id number] CT RIGHT knee, noncontrast HISTORY: RIGHT TOTAL KNEE ARTHROPLASTY TECHNIQUE: Protocol for [facility] total knee replacement has been obtained. This includes axial imaging through the RIGHT hip, RIGHT knee and RIGHT ankle. DLP: 990.17 mGy.cm COMPARISON: 01/21/2025 Pelvis: Mild narrowing of the hip joints. Degenerative air in the SI joints. Moderate atherosclerosis iliac arteries and femoral arteries. RIGHT knee: Advanced tricompartment osteoarthritis. Minimal subluxation laterally of the patella. Joint spaces are all narrowed with hypertrophic osteophytes. No significant joint effusion. Small Onofre's cyst. Calcific deposits within the Onofre's cyst. RIGHT ankle: Negative. CT/CT knee RT [facility] [id number] IMPRESSION: CT imaging provided for [facility] robotic total knee replacement.
== END 2025-02-10 16:42 | disposition home or self-care (01) ==
LOC: RAD 16:47
PROVIDERS: PCP Family Medicine; Visit Provider Student in an Organized Health Care Education/Training Program
DX: M17.11 Unilateral primary osteoarthritis, right knee (principal)
CPT/HCPCS: 73700

== ENCOUNTER 2025-02-15 14:28 | Outpatient (CLI) | payer MEDICARE, SELFPAY ==
[2025-02-15 14:49] LABS: Hematocrit 49.6 % (37-53); Hemoglobin 16.20 g/dL (11.27-16.99); Mean Corpuscular HGB Conc 32.7 g/dL (30-55); Mean Corpuscular Hemoglobin 35.8 pg (27-33); Mean Corpuscular Volume 109.5 fl (82-101); Nucleated Red Blood Cells % 0 %; Platelet Count 331 10^3/cmm (157-399); Red Blood Count 4.53 10^6/uL (3.85-5.65); White Blood Count 12.31 10^3/uL (3.29-11.43)
[2025-02-15 14:51] LABS: Glucose Urine UA 3+ (Normal); Nitrate Urine Negative (Negative); Specific Gravity, Urine 1.019 (1.005-1.030)
[2025-02-15 14:56] LABS: Add Urine Microscopic? YES
[2025-02-15 15:05] LABS: Alanine Aminotransferase 29 U/L (0-41); Albumin Level 4.4 g/dL (3.5-5.2); Alkaline Phosphatase 131 U/L (40-130); Aspartate Amino Transferase 21 U/L (0-40); Blood Urea Nitrogen 34 mg/dL (8-23); Calcium 8.9 mg/dL (8.5-10.5); Carbon Dioxide 27 mmol/L (22-29); Chloride 98 mmol/L (98-107); Globulin 3.3 g/dL (1.3-4.6); Glucose 110 mg/dL (65-115); Osmolality Calculated 290 mOsm/kg (285-295); Sodium 136 mmol/L (136-145); Total Protein 7.7 g/dL (6.6-8.7)
[2025-02-15 15:10] LABS: Anion Gap 15.6 (5-19); Potassium 4.6 mmol/L (3.5-5.1)
== END 2025-02-15 14:29 | disposition home or self-care (01) ==
LOC: LAB 14:31
PROVIDERS: PCP Family Medicine; Visit Provider Student in an Organized Health Care Education/Training Program
DX: Z01.818 Encounter for other preprocedural examination (principal)
CPT/HCPCS: 36415; 80053; 81001; 85025

== ENCOUNTER → 2025-02-16 09:27 | Outpatient (BNVA) | payer MEDICARE, SELFPAY | PROVIDERS: PCP Family Medicine; Visit Provider Family Medicine | DX: Z01.818 Encounter for other preprocedural examination (principal) | CPT/HCPCS: 80048 ==

== ENCOUNTER 2025-03-01 15:42 | Observation (INO) | payer MEDICARE, SELFPAY ==
--- OUTSIDE RECORDS SUMMARY | 2023-09-12 05:00 | XMS_ITS ---
Author Organization [facility] Address [address] [place] [address] Care Team Providers Care Filter Tank Tender Name Role Phone TIFFANY MARQUEZ Primary Care Provider Shea Fregoso [phone] REASON FOR VISIT ESTABLISH PER MOISES Encounters Encounter Location Date Provider Diagnosis [facility] [address] [place] [address] 09/12/2023 Shea Fregoso PLAN OF TREATMENT No Information Progress Notes * TRISTIN FARIAS LDOB: [birth year] (74 yo M)Acc No.[id number]:09/12/2023 Progress Notes Patient: TRISTIN FARIAS Provider: Shea Fregoso MD :1950 Age:73 Y Sex:Male Date:09/12/2023 Address:[address] [place], [place] [id number] Pcp:TIFFANY MARQUEZ Subjective: * Chief Complaints: * 1. ESTABLISH PER MOISES. * Medical History: Objective: Assessment: Plan: * Treatment: * Images: Billing Information: * Visit Code: * Procedure Codes: * Sign off status: Pending * Provider: Shea Fregoso MD Date: 09/12/2023
--- OUTSIDE RECORDS SUMMARY | 2023-12-02 05:51 | XMS_ITS ---
Author Organization [facility] Address [address] [place] [address] Care Team Providers Care Track Car Operator Name Role Phone TIFFANY MARQUEZ Primary Care Provider [phone] Shea Fregoso [phone] REASON FOR VISIT Refill Encounters Encounter Location Date Provider Diagnosis [facility] [address] [place] [address] 12/02/2023 Shea Fregoso PLAN OF TREATMENT No Information Progress Notes * DINORA TRISTIN LDOB: [birth year] (73 yo M)Acc No.[id number]:12/02/2023 Patient: TRISTIN FARIAS Andria :1950 Age:73 Y Sex:Male Address:[address] [place] [id number] * true * Date:
--- OUTSIDE RECORDS SUMMARY | 2024-07-24 05:11 | XMS_ITS ---
Author Organization [facility] Address [address] [place] [address] Care Team Providers Care Fly Worker Name Role Phone TIFFANY MARQUEZ Primary Care Provider Shea Fregoso [phone] REASON FOR VISIT CPAP PRESCRIPTION Encounters Encounter Location Date Provider Diagnosis [facility] [address] [place] [address] 07/24/2024 Shea Fregoso PLAN OF TREATMENT No Information Progress Notes * TRISTIN FARIAS LDOB: [birth year] (73 yo M)Acc No.[id number]:07/24/2024 Patient: JESUSTRISTIN GOSS Andria :1950 Age:73 Y Sex:Male Address:[address] [place] [id number] * true * Date:
[2025-03-01] VITALS (22 sets, daily range): BP systolic 74–127; BP diastolic 45–78; PULSE 65–89; RESP 12–21; TEMP 36.3–36.7; O2SAT 94–99; BMI 43.7
--- NOTE | 2025-03-01 09:02 | ANES.PREANE2 ---
Pre-Anesthetic Assessment Height/Weight: Height 5 ft 10 in Preop Diagnosis: knee arthritis Operation Date: 03/01/25 10:05 Proposed Procedures p Joni Robot Total Knee Arthroplasty(Right) - Jason Wilkins, DO Was Beta Bia taken within 24 hours: N/A Was Clonidine taken within 24 hours: N/A Social No alcohol and No tobacco Exam alert, oriented x 3 and regular rate & rhythm Airway Submandibular: within normal limits Cervical ROM: within normal limits Mallampati: Class III Dentition: full Anesthetic Plan ASA status: 4 Anesthesia: MAC and Regional (specify below) Other: No prior issues with anesthesia N.p.o. since yesterday evening History of HFpEF, echo in October showing EF of 57% with no RWMA Documented ascending aortic aneurysm, aortic root upper limit of normal SAMRA, wears CPAP nightly CKD, labs reviewed acceptable GERD, controlled with omeprazole Type 2 diabetes on Ozempic, last taken 02/18/2025 History of A-fib Recent labs performed and acceptable for procedure Plan for spinal with post induction nerve block Medications/Allergies Home Medications ?Medication ?Instructions ?Recorded ?Confirmed ?Last Taken ?Type hydroxyzine HCl 25 mg tablet 50 mg PO BID PRN Itching 07/26/20 02/25/25 3 Days Ago History ~02/22/25 blood sugar diagnostic (Relion #100 ea 03/06/22 01/12/25 Unknown Rx Confirm-Micro strips) blood-glucose meter (ReliOn Micro #1 ea 03/06/22 01/12/25 Unknown Rx Glucose Monitor kit) nebulizers #1 ea 06/22/22 01/12/25 Unknown Rx cetirizine 10 mg tablet (Zyrtec) 10 mg PO DAILY 09/28/22 02/25/25 02/25/25 History diphenhydramine HCl 25 mg tablet 25 mg PO BEDTIME 09/28/22 02/25/25 02/24/25 History (Benadryl Allergy) aspirin 325 mg tablet 325 mg PO DAILY 05/02/23 02/25/25 02/21/25 History 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, 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 #1 ea 07/25/23 01/12/25 Unknown Rx ipratropium 0.5 mg-albuterol 3 mg 3 ml inhalation Q4H PRN wheezing 12/09/23 02/25/25 1 Week Ago Rx (2.5 mg base)/3 mL nebulization #180 mL ~02/18/25 soln metolazone 2.5 mg tablet 2.5 mg PO .every other day #90 tabs 12/10/23 02/25/25 2 Days Ago Rx ~02/23/25 fluticasone propionate 50 2 spray intranasal DAILY PRN allegy 01/09/24 02/25/25 02/24/25 History mcg/actuation nasal spray,suspension umeclidinium 62.5 mcg-vilanterol 1 inh inhalation DAILY 01/21/24 02/25/25 02/25/25 History 25 mcg/actuation powdr for inhalation (Anoro Ellipta) nystatin-triamcinolone 100,000 1 applic topical BID #60 grams 02/13/24 02/25/25 1 Week Ago Rx unit/g-0.1 % topical cream ~02/18/25 albuterol sulfate 90 mcg/actuation 2 puff inhalation Q6H PRN 05/04/24 02/25/25 11/14/24 Rx aerosol inhaler (Ventolin HFA) Shortness Of Breath #8.5 grams magnesium oxide 400 mg PO DAILY #90 caps 08/18/24 02/25/25 02/25/25 Rx tamsulosin 0.4 mg capsule 0.4 mg PO BID #180 caps 08/18/24 02/25/25 02/25/25 Rx gabapentin 300 mg capsule 300 mg PO .qpm restless legs #90 08/24/24 02/25/25 02/24/25 Rx caps furosemide 40 mg tablet 40 mg PO DAILY weight gain #120 08/27/24 02/25/25 02/23/25 Rx tabs potassium chloride 10 mEq 20 meq (2 x 10 mEq) PO DAILY #180 09/01/24 02/25/25 02/25/25 Rx tablet,extended release tabs lancets 33 gauge (OneTouch Delica #100 ea 09/16/24 01/12/25 Unknown Rx Plus Lancet) apixaban 5 mg tablet (Eliquis) 5 mg PO BID #180 tabs 09/21/24 02/25/25 02/25/25 Rx finasteride 5 mg tablet 5 mg PO DAILY #90 tabs 11/02/24 02/25/25 02/25/25 Rx omeprazole 40 mg capsule,delayed 40 mg PO DAILY #90 caps 11/02/24 02/25/25 02/25/25 Rx release sertraline 50 mg tablet 100 mg (2 x 50 mg) PO DAILY #60 11/02/24 02/25/25 02/25/25 Rx tabs carvedilol 25 mg tablet 12.5 mg (1/2 x 25 mg) PO BID #90 12/03/24 03/01/25 03/01/25 Rx tabs oxygen #1 ea 12/03/24 01/12/25 Unknown Rx semaglutide 1 mg/dose (4 mg/3 mL) 1 mg (0.75 mL) SUBCUT .qwk #3 mL 01/07/25 02/25/25 02/18/25 Rx subcutaneous pen injector blood sugar diagnostic (OneTouch #100 ea 02/01/25 Unknown Rx Ultra Test strips) ropinirole 2 mg tablet 2 mg PO TID #90 tabs 02/03/25 02/25/25 02/25/25 Rx simvastatin 20 mg tablet 20 mg PO DAILY #90 tabs 02/03/25 02/25/25 02/24/25 Rx spironolactone 25 mg tablet 25 mg PO DAILY #90 tabs 02/05/25 02/25/25 Unknown Rx Held on 02/16/25. Instructions: Doctor's Order empagliflozin 10 mg tablet 20 mg PO DAILY 02/25/25 02/25/25 02/24/25 History (Jardiance) hydroxyurea 500 mg capsule (Hydrea) 500 mg PO BID 02/25/25 02/25/25 02/25/25 History Allergies Allergy/AdvReac Type Severity Reaction Status Date / Time cephalexin Allergy Unknown Hives Verified 03/01/25 08:30 levofloxacin (From Levaquin) Allergy Unknown ADR/ALGY-Fl Verified 03/01/25 08:30 ushing oxycodone AdvReac Intermediate ADR-Blurry Verified 03/01/25 08:30 Vision codeine AdvReac Unknown ADR-Blurry Verified 03/01/25 08:30 Vision metaxalone (From Skelaxin) AdvReac Unknown ADR-Blurry Verified 03/01/25 08:30 Vision [facility] Anesthesia Medical History Supplemental oxygen dependent Inogen oxygen on exertion Dependence on nocturnal oxygen therapy 4L oxygen at night into CPAP Constipation by delayed colonic transit Overflow diarrhea Restless leg syndrome COPD (chronic obstructive pulmonary disease) Nicotine dependence, cigarettes, in remission Family hx of colon cancer mother, brother Restrictive lung disease Pulmonary hypertension Type 2 diabetes mellitus sees endo Hyperlipidemia PRV (polycythemia rubra vera) 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 Peripheral neuropathy History of colon polyps Obstructive sleep apnea on CPAP Elevated PSA GERD (gastroesophageal reflux disease) Osteoarthritis Ascending aortic aneurysm Atrial fibrillation Diastolic heart failure HTN (hypertension) Surgical History Hx of cardiac catheterization 5 cardiac cath OZH: normal coronary arteries History of total left knee replacement (TKR) Hx of arthroscopy of left knee Hx of bilateral cataract extraction History of cardioversion a fib History of esophagogastroduodenoscopy Status post colonoscopy with polypectomy 6.. hyperplastic polyps but fam hx so f/u 5 yrs S/P appendectomy S/P cholecystectomy Family History Father Diabetes Sepsis Bleeding disorder Clotting disorder Brother Diabetes Cancer stomach; colon Mother Cancer colon; liver Heart failure CAD (coronary artery disease) 50s Lung disease Grandfather Dementia Denies family history of Chronic kidney disease (CKD) Suicide Anesthesia complication Stroke Social History Smoking and tobacco/nicotine status: never used tobacco/nicotine Quit status (tobacco/nicotine): has quit using Year quit tobacco: 2011 - 1PPD x 40 Years Second hand smoke exposure: No Alcohol intake: never Substance/Drug Use: never Lives independently: Yes Household members: spouse and other Details: grown son Marital status: Number of children: 4 Highest education level completed: Some College, No Degree Current occupational status: disabled Previous occupational history: 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; 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
[2025-03-01] MEDS: acetaminophen 1,000 MG/100 ML PIGGYBACK 400 MG IV ×2 (09:08→18:08)
[2025-03-01 09:21] LABS: Hematocrit 47.7 % (37-53); Hemoglobin 15.80 g/dL (11.27-16.99); Mean Corpuscular HGB Conc 33.1 g/dL (30-55); Mean Corpuscular Hemoglobin 37.1 pg (27-33); Mean Corpuscular Volume 112.0 fl (82-101); Nucleated Red Blood Cells % 0 %; Platelet Count 306 10^3/cmm (157-399); Red Blood Count 4.26 10^6/uL (3.85-5.65); White Blood Count 10.57 10^3/uL (3.29-11.43)
--- NOTE | 2025-03-01 09:37 | W.PM.OPSFHP ---
Same Day Surgery H&P Indication for Procedure/HPI DATE OF PROCEDURE: March 01, 2025 CHIEF COMPLAINT/INDICATIONFOR SURGICAL PROCEDURE: Right knee DJD PREOP DIAGNOSIS: Right knee arthritis PLANNED PROCEDURE: Operation Date: 03/01/25 10:05 Proposed Procedures p Joni Robot Total Knee Arthroplasty(Right) - Jason Wilkins, DO Medications/Allergies* Home Medications ?Medication ?Instructions ?Recorded ?Confirmed ?Type hydroxyzine HCl 25 mg tablet 50 mg PO BID PRN Itching 07/26/20 02/25/25 History cetirizine 10 mg tablet (Zyrtec) 10 mg PO DAILY 09/28/22 02/25/25 History diphenhydramine HCl 25 mg tablet 25 mg PO BEDTIME 09/28/22 02/25/25 History (Benadryl Allergy) aspirin 325 mg tablet 325 mg PO DAILY 05/02/23 02/25/25 History fluticasone propionate 50 2 spray intranasal DAILY PRN allegy 01/09/24 02/25/25 History mcg/actuation nasal spray,suspension umeclidinium 62.5 mcg-vilanterol 1 inh inhalation DAILY 01/21/24 02/25/25 History 25 mcg/actuation powdr for inhalation (Anoro Ellipta) empagliflozin 10 mg tablet 20 mg PO DAILY 02/25/25 02/25/25 History (Jardiance) hydroxyurea 500 mg capsule (Hydrea) 500 mg PO BID 02/25/25 02/25/25 History Allergies/Adverse Reactions Allergy/AdvReac Type Severity Reaction Status Date / Time cephalexin Allergy Unknown Hives Verified 03/01/25 08:30 levofloxacin (From Levaquin) Allergy Unknown ADR/ALGY-Fl Verified 03/01/25 08:30 ushing oxycodone AdvReac Intermediate ADR-Blurry Verified 03/01/25 08:30 Vision codeine AdvReac Unknown ADR-Blurry Verified 03/01/25 08:30 Vision metaxalone (From Skelaxin) AdvReac Unknown ADR-Blurry Verified 03/01/25 08:30 Vision Current Medications: Generic Name Dose Route Start Last Admin Trade Name Freq PRN Reason Stop Dose Admin Sodium Chloride 1,000 mls @ 30 mls/hr 03/01/25 08:30 03/01/25 09:09 Sodium Chloride 0.9% IV 03/02/25 08:29 30 mls/hr .Q24H YAHAIRA Administration Pertinent History/Comorbid Conditions* Medical History (Updated 12/03/24 @ 10:20 by Racheal Chang MD) Supplemental oxygen dependent Inogen oxygen on exertion Dependence on nocturnal oxygen therapy 4L oxygen at night into CPAP Constipation by delayed colonic transit Overflow diarrhea Restless leg syndrome COPD (chronic obstructive pulmonary disease) Nicotine dependence, cigarettes, in remission Family hx of colon cancer mother, brother Restrictive lung disease Pulmonary hypertension Type 2 diabetes mellitus sees endo Hyperlipidemia PRV (polycythemia rubra vera) 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 Peripheral neuropathy History of colon polyps Obstructive sleep apnea on CPAP Elevated PSA GERD (gastroesophageal reflux disease) Osteoarthritis Ascending aortic aneurysm Atrial fibrillation Diastolic heart failure HTN (hypertension) Surgical History (Updated 12/03/24 @ 09:56 by Racheal Chang MD) Hx of cardiac catheterization 11.17.24 cardiac cath OZH: normal coronary arteries History of total left knee replacement (TKR) Hx of arthroscopy of left knee Hx of bilateral cataract extraction History of cardioversion a fib History of esophagogastroduodenoscopy Status post colonoscopy with polypectomy 12.13.21 hyperplastic polyps but fam hx so f/u 5 yrs S/P appendectomy S/P cholecystectomy Family History (Updated 01/04/22 @ 10:17 by Nicole Haider RN) Diabetes Father Brother Heart failure Mother CAD (coronary artery disease) Mother 50s Clotting disorder Father Dementia Grandfather Bleeding disorder Father Sepsis Father Lung disease Mother Cancer Brother stomach; colon Mother colon; liver Denies family history of Chronic kidney disease (CKD) Suicide Anesthesia complication Stroke Social History Smoking and tobacco/nicotine status: never used tobacco/nicotine Quit status (tobacco/nicotine): has quit using Year quit tobacco: 2011 1PPD x 40 Years Second hand smoke exposure: No Alcohol intake: never Substance/Drug Use: never Lives independently: Yes Household members: spouse and other Details: grown son Marital status: Number of children: 4 Highest education level completed: Some College, No Degree Current occupational status: disabled Previous 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 no Warmth or purulent drainage seen. no signs of septic joint. Active ROM 0-120 degrees. pt can perform straight leg raise, dorsiflex and plantarflex foot. pedal pulse 2. No calf tenderness. Patient is able to weight-bear and ambulate in clinic with walker without any difficulty. Stable varus valgus stress Right Knee exam -Patellar crepitus with range of motion, tenderness palpation over the retropatellar space -ROM 5-110 degrees. -Medial and lateral joint line tenderness -Negative Emmanuelle's -Stable varus valgus stress -Seen with Reilly's examination but no palpable click -Patient can PF and DF ankle -10 degree varus deformities mildly correctable on examination patient asked ambulate with a walker in the office today with considerable gait disturbance Tenderness to palpation over left ischial tuberosity Recommendations Risks and benefits of procedure reviewed and Patient/family agree to proceed Surgery/Procedure today Other Plans: Plan to proceed to the OR today for right total knee arthroplasty?Joni robotic assisted. Patient understands enzymes procedure risk benefits complication alternatives of surgical nonsurgical treatment options. Understand risk of surgery patient like proceed with surgical invention. All questions answered at this time. He has undergone extensive workup and been medically optimized to proceed with surgical intervention per preoperative team. Patient understands agrees current plan. Questions answered. Coding Level of Care Code Acute Code for Chg Fwd
[2025-03-01 10:21] LABS: Anion Gap 14.4 (5-19); Blood Urea Nitrogen 26 mg/dL (8-23); Calcium 8.4 mg/dL (8.5-10.5); Carbon Dioxide 23 mmol/L (22-29); Chloride 107 mmol/L (98-107); Creatinine Clr Calc Pharmacy 93.6307; Glucose 133 mg/dL (65-115); Osmolality Calculated 297 mOsm/kg (285-295); Potassium 4.4 mmol/L (3.5-5.1); Sodium 140 mmol/L (136-145)
[2025-03-01] MEDS: tranexamic acid 1,000 mg/10mL SDV 1000 MG IV (10:21)
[2025-03-01] MEDS: tranexamic acid 1,000 mg/10mL SDV 1000 MG XX (11:15)
[2025-03-01] MEDS: ROPivacaine 0.2% Premix 100 mL 200 MG INTRA-ARTI (11:15)
--- NOTE | 2025-03-01 11:58 | ANES.PROC ---
Anesthesia Procedures Procedure/Date: 03/01/25 Right adductor canal block for postoperative pain control Nerve Block ^: Nerve Block 1: Main Anesthesia: general anesthesia Time Out Performed: Yes Consent: requested by attending/covering physician and from patient Laterality: Right Nerve block location: adductor canal Anesthesia monitors applied: pulse oximetry, EKG, BP cuff and oxygen Nerve block position: supine Anesthetic Used: ropivicaine 0.5% Amount of anesthesia used (mL): 15 Ultrasound used to: recognize landmarks Nerve Stimulator Used?: No Interscalene/Femoral BLK: other needle (pjunk 4inch) Injection: neg aspiration of heme Patient Tolerated Procedure: well Complications: none
--- NOTE | 2025-03-01 12:23 | W.PM.BPON ---
Date of Procedure: 03/01/2025 Surgeon: Jason Wilkins DO Supervisor Shop(s): Alejandro Wilkins PA-C Procedure(s) performed: Right total knee arthroplasty?Joni robotic assisted Findings of the procedure(s): Underwent procedure as planned without issues or complications taken recovery in stable condition Estimated blood loss: 40 mL Specimen(s) removed: Tibia femur and patellar bone cuts removed Post-operative diagnosis: Right knee DJD
--- NOTE | 2025-03-01 12:25 | P.OP_ITS ---
Operative Report Date of procedure: March 01, 2025 Surgeon: Jason Wilkins DO Winch Truck Operator: Alejandro Wilkins PA-C: PA was necessary for assistance in this case with leg positioning retraction and protection of neurovascular structures as well as assistance in implantation wound closure and dressing application. Procedure: Preoperative diagnosis: Right knee degenerative joint disease Post-op diagnosis: Same Procedure done: Right total knee arthroplasty, cemented?robotic assisted Joni Implants: Samira triathlon size 6 femur CR cemented?Right [place] triathlon size? 5 tibia universal baseplate cemented Samira triathlon symmetric patella size 33 mm [place] triathlon polyethylene 11mm Surgeon: Jason Wilkins DO Estimated blood?loss: 40 mL Tourniquet 70 minutes IV fluids: 1200 mL Urine output: 100 cc Complications: None Condition: stable Disposition: floor Brief History: Patient is a 74-year-old male with with chronic?Right knee degenerative joint disease.? Patient has been worked up in the outpatient setting in the orthopedic office at this point time through shared decision making given? [id number] arthritis as well as failed conservative treatment, and pt would?like to proceed with a?Right total knee arthroplasty?Joni robotic assisted.? Through shared decision making elected to proceed with surgical intervention for?Right total knee arthroplasty?Joni robotic assisted.? We talked about continued conservative treatment and surgical intervention as far as the risk benefits complications alternatives surgical and nonsurgical treatment options.? At this point time understanding patient risks with surgery he agrees to proceed with surgical intervention.? Once again? risk with surgery include but are not?limited to make it better make it worse blood clot, heart attack, stroke, on the table, infection, injury to nerves or vessels, persistent pain, arthrofibrosis, implant failure.? Understanding these risks patient agrees to proceed with surgical intervention consent was obtained in the preoperative holding area.? All questions answered. Procedure: Patient was seen and evaluated in the preoperative holding area.? Consent was reviewed and signed with patient with plan for?Right total knee arthroplasty.? All questions answered.? Correct extremity marked.? Patient seen and evaluated by the anesthesia department and once cleared for surgery was taken back to the operative suite.? Patient was placed into a supine position on the OR table.? All bony prominences were well-padded.? Patient was appropriately secured to the bed.? Patient underwent anesthesia per the anesthesia department.? Patient received anesthesia and? Avalos catheter was placed.? A nonsterile tourniquet was applied to the?Right thigh.? At this point in time a final timeout performed.? Patient received appropriate preoperative antibiotics and TXA. Next the?Right?lower extremity was then prepped and draped in standard orthopedic fashion. Esmarch tourniquet was used exsanguinate the?Right?lower extremity.? Tourniquet was insufflated to 250 mmHg. A standard anterior incision was made over midline of the knee.? Sharp scalpel excision through skin and subcutaneous tissue full-thickness skin flaps were made.? Fascia was elevated off of the extensor retinaculum was stable with medial parapatellar arthrotomy was then made.? The performed standard sequential releases..? Immediately on entry into the joint patient was found to have severe eburnated bone and tricompartmental arthritic changes noted.? With significant osteophyte formation.? Next the the patella was then stuffed and the knee was then flexed.?? Josselyn was placed superiorly around the anterior aspect of the femur this was freed of synovium and I subsequently then placed by 2 femur pins to establish my femur arrays for the Joni robot.? These were then placed bicortically and? femur array was then appropriately secured with appropriate visualization.? Next attention was turned towards the tibial rays.? These were then drilled sequentially bicortically in parallel fashion and intraincisional.? I then placed my guide as well as my tibial array on in place.? This was appropriately secured and had excellent visualization with the Joni robot.? Next the tibial checkpoint as well as femur checkpoint were then placed.? At this point time I then subsequently established my head center as well as my medial?lateral malleoli as well as my checkpoints.? Next utilizing standard Joni technology I then mapped out the appropriate points and confirmation points around the femur as well as the tibia in standard fashion.? Once this was then done I then removed all osteophytes in preparation for dynamic testing.? All osteophytes were removed as well as I removed the ACL and the PCL was excised due to its significant tearing and degeneration noted.? At this point time the knee was brought into full extension and we performed our standard evaluation of our gap balancing stressing his?ligaments and extension as well as flexion appropriate adjustments were made to have appropriate gap balancing in both flexion and extension.? This plan for final cuts were made and implants were adjusted and to write appropriate balancing up to patient's ligamentous tolerances..? We get a preoperative plan evaluating our implants which was a size 6 femur and a size 5 tibia.? Next we brought in the Joni robot and sequentially made our femur cuts.? All excess bony cuts were then removed.? Finally we made our tibial cut.? Once this was done a standard PCL retractor was then placed into this position I excised the medial and?lateral meniscus.? The tibial cut was then subsequently removed all excess bony debris was removed.? I then utilized a?lamina fiberglass luggage molder and remove the posterior osteophytes.? At this point time sized the tibia and confirmed this was a size 5.? I utilized our blunt probe to establish rotation of tibial implant.? Once this was done I then placed my tibia size 5 trial in appropriate position and then subsequently placed tibial pins to hold this into placed and trialed up to size 11 mm poly as well as a size 6 femur which was appropriately impacted in place knee was then subsequently brought into extension. Trials were then assessed,? this was stable with varus valgus stress in extension as well as had symmetrical translation when brought into flexion demonstrating symmetrical gaps. I had excellent balance gaps in flexion and extension with varus and valgus stresses.? At this point I was satisfied with these implants these were then verified and opened on the back table size 5 tibia, size 6 femur,? size 11 mm polythickness.? We did confirm appropriate gap balancing and stresses as well as alignment utilizing? Joni and were satisfied with this plan.? ?At this point time with my trials in place I then towel clip the patella everted this made appropriate measurements subsequently utilizing freehand technique performed by patellar resurfacing this was confirmed to be appropriate resection and subsequently sized to be a 33 mm symmetric.? My drill peg guides were then clamped and appropriate position and appropriate position in the patella for appropriate tracking and parallel with the joint.? Pegs were drilled trial implant was placed and the knee was then subsequently ranged and found to have excellent patellar tracking.? Femur pegs were then drilled.? At this point time all of our trial implants were removed.? All checkpoints as well as guidepins and arrays were removed and appropriate counts made.? Satisfied with our tibial placement rotation I then utilized the keel punch and prepped the tibia.? The wound bed? was thoroughly irrigated and dried and prepped for cementation.? Cement was mixed on the back table.? Once cement was ready this was then covered onto the tibia and the tibial baseplate was then impacted and all excess cement was removed.? Next the polyethylene was then impacted into place on the tibial baseplate.? Next cement was placed onto the femur as well as under the femur implants and impacted in to place and all excess cement was extruded and removed.? Knee was taken into full extension? to clear all excess cement was removed.? Warm saline was placed over the joint.? I then towel clip patella and dried for cementation. cemented the patella into place.? This was all clamped and the cement was allowed to cure.? Thorough irrigation performed with pulse?lavage.? I then placed my periarticular injection while the cement was curing.? Once cured the knee was taken through range of motion and had excellent stability and gaps were balanced in flexion and extension.? Tourniquet was then deflated. hemostasis satisfactory with electrocautery.? Vancomycin powder was placed in wound bed for antibiotic infection prophylaxis. Next I then subsequently closed the capsule with Ethibond suture as well as a running strata fix suture.? Knee was then taken through range of motion 30 times.? Next the skin was then closed in?layered fashion of running stratifix sutures of deep and subcutenous tissue and skin.? ?closed in flexion and Prineo glue was then placed over the incision this allowed to cure.? Incision was covered with ceci incisional VAC, with ABDs soft roll and John wrap.? Patient was then awakened from anesthesia and taken to PACU in stable condition. Disposition: Patient taken to PACU in stable condition will be admitted to the floor for pain control PT/OT weight-bear as tolerated?Right?lower extremity dressing changes as needed, DVT prophylaxis. Pain control. Patient will receive appropriate postoperative antibiotics. patient will be seen today by the internal medicine team for medical management.? Patient will follow up with the office in 2 weeks.? Patient understands agrees with current plan.? All questions answered.
--- NOTE | 2025-03-01 12:32 | XR_ITS ---
WS: [id number] Right knee, AP and lateral views, 03/01/2025 Clinical Data: postop R TKA Comparison: Bilateral knees, 10/06/2024 Findings: There is a right knee arthroplasty. The components are in good position. Postoperative air is in the joint space. XR/XR knee RT 1-2V [id number] Impression: Right knee arthroplasty.
--- NOTE | 2025-03-01 13:01 | PC.NURSE ---
1245 - anesthesia at side to treat blood pressure
--- NOTE | 2025-03-01 13:20 | ANE.PACU2 ---
Inpatient post-anesthesia follow up: Airway intact: Yes Vital signs: Temperature 97.3 F Pulse Rate 85 Respiratory Rate 16 Blood Pressure 106/65 Pulse Oximetry 98 Oxygen Delivery Me thod Nasal Cannula Oxygen Flow Rate 4 Fraction of Inspir ed Oxygen Hydration adequate: Yes Nausea and vomiting: No Pain level: 3 Mental status: Baseline
--- NOTE | 2025-03-01 14:46 | PM.CONSULT ---
Providers/Reason For Consult Consulting Physician/Specialty*: Dr. Wilkins, orthopedic surgery Reason for Consult*: Inpatient medical management of chronic medical conditions Requesting Physician: Dr. Wilkins Attending Physician: Jason Wilkins DO Primary Care Provider: Racheal Chang MD History of Present Illness History of Present Illness Seferino Rashid is a 74 year old male with multiple comorbid conditions including morbid obesity, atrial fibrillation, COPD, chronic kidney disease, pulmonary hypertension, and sleep apnea presents for a right total knee arthroplasty. Patient was seen in the PACU. He has soft blood pressures that were taken on a forearm cuff. While I was present the RN obtained an extra-large blood pressure cuff and placed on the left upper arm blood pressure was then systolic 119. Patient is alert responding able to tell us his knee surgery prior to today was May 11, 2024. He is complaining of some knee pain Review of Systems Const: Denies: fever(s) or chills Eyes: Denies: change in vision ENMT: Denies: throat pain or nasal congestion Card: Denies: chest pain or palpitations Resp: Denies: dyspnea or productive cough GI: Denies: abdominal pain, nausea, vomiting or change in stool character : Denies: difficulty urinating or dysuria Musc: Denies: back pain or extremity pain Skin/Breast: Denies: rash or lesions Neuro: Denies: headache(s) or dizziness Psych: Denies: anxiety or depression Samir/Lymph: Denies: easy bruising or easy bleeding Medications/Allergies Home Medications ?Medication ?Instructions ?Recorded ?Confirmed ?Last Taken ?Type hydroxyzine HCl 25 mg tablet 50 mg PO BID PRN Itching 07/26/20 02/25/25 3 Days Ago History ~02/22/25 blood sugar diagnostic (Relion #100 ea 03/06/22 01/12/25 Unknown Rx Confirm-Micro strips) blood-glucose meter (ReliOn Micro #1 ea 03/06/22 01/12/25 Unknown Rx Glucose Monitor kit) nebulizers #1 ea 06/22/22 01/12/25 Unknown Rx cetirizine 10 mg tablet (Zyrtec) 10 mg PO DAILY 09/28/22 02/25/25 02/25/25 History diphenhydramine HCl 25 mg tablet 25 mg PO BEDTIME 09/28/22 02/25/25 02/24/25 History (Benadryl Allergy) aspirin 325 mg tablet 325 mg PO DAILY 05/02/23 02/25/25 02/21/25 History it support consultant brace, right knee #1 ea 07/25/23 01/12/25 Unknown Rx ipratropium 0.5 mg-albuterol 3 mg 3 ml inhalation Q4H PRN wheezing 12/09/23 02/25/25 1 Week Ago Rx (2.5 mg base)/3 mL nebulization #180 mL ~02/18/25 soln metolazone 2.5 mg tablet 2.5 mg PO .every other day #90 tabs 12/10/23 02/25/25 2 Days Ago Rx ~02/23/25 fluticasone propionate 50 2 spray intranasal DAILY PRN allegy 01/09/24 02/25/25 02/24/25 History mcg/actuation nasal spray,suspension umeclidinium 62.5 mcg-vilanterol 1 inh inhalation DAILY 01/21/24 02/25/25 02/25/25 History 25 mcg/actuation powdr for inhalation (Anoro Ellipta) nystatin-triamcinolone 100,000 1 applic topical BID #60 grams 02/13/24 02/25/25 1 Week Ago Rx unit/g-0.1 % topical cream ~02/18/25 albuterol sulfate 90 mcg/actuation 2 puff inhalation Q6H PRN 05/04/24 02/25/25 11/14/24 Rx aerosol inhaler (Ventolin HFA) Shortness Of Breath #8.5 grams magnesium oxide 400 mg PO DAILY #90 caps 08/18/24 02/25/25 02/25/25 Rx tamsulosin 0.4 mg capsule 0.4 mg PO BID #180 caps 08/18/24 02/25/25 02/25/25 Rx gabapentin 300 mg capsule 300 mg PO .qpm restless legs #90 08/24/24 02/25/25 02/24/25 Rx caps furosemide 40 mg tablet 40 mg PO DAILY weight gain #120 08/27/24 02/25/25 02/23/25 Rx tabs potassium chloride 10 mEq 20 meq (2 x 10 mEq) PO DAILY #180 09/01/24 02/25/25 02/25/25 Rx tablet,extended release tabs lancets 33 gauge (OneTouch Delica #100 ea 09/16/24 01/12/25 Unknown Rx Plus Lancet) apixaban 5 mg tablet (Eliquis) 5 mg PO BID #180 tabs 09/21/24 02/25/25 02/25/25 Rx finasteride 5 mg tablet 5 mg PO DAILY #90 tabs 11/02/24 02/25/25 02/25/25 Rx omeprazole 40 mg capsule,delayed 40 mg PO DAILY #90 caps 11/02/24 02/25/25 02/25/25 Rx release sertraline 50 mg tablet 100 mg (2 x 50 mg) PO DAILY #60 11/02/24 02/25/25 02/25/25 Rx tabs carvedilol 25 mg tablet 12.5 mg (1/2 x 25 mg) PO BID #90 12/03/24 03/01/25 03/01/25 Rx tabs oxygen #1 ea 12/03/24 01/12/25 Unknown Rx semaglutide 1 mg/dose (4 mg/3 mL) 1 mg (0.75 mL) SUBCUT .qwk #3 mL 01/07/25 02/25/25 02/18/25 Rx subcutaneous pen injector blood sugar diagnostic (OneTouch #100 ea 02/01/25 Unknown Rx Ultra Test strips) ropinirole 2 mg tablet 2 mg PO TID #90 tabs 02/03/25 02/25/25 02/25/25 Rx simvastatin 20 mg tablet 20 mg PO DAILY #90 tabs 02/03/25 02/25/25 02/24/25 Rx spironolactone 25 mg tablet 25 mg PO DAILY #90 tabs 02/05/25 02/25/25 Unknown Rx Held on 02/16/25. Instructions: Doctor's Order empagliflozin 10 mg tablet 20 mg PO DAILY 02/25/25 02/25/25 02/24/25 History (Jardiance) hydroxyurea 500 mg capsule (Hydrea) 500 mg PO BID 02/25/25 02/25/25 02/25/25 History Allergies Allergy/AdvReac Type Severity Reaction Status Date / Time cephalexin Allergy Unknown Hives Verified 03/01/25 08:30 levofloxacin (From Levaquin) Allergy Unknown ADR/ALGY-Fl Verified 03/01/25 08:30 ushing oxycodone AdvReac Intermediate ADR-Blurry Verified 03/01/25 08:30 Vision codeine AdvReac Unknown ADR-Blurry Verified 03/01/25 08:30 Vision metaxalone (From Skelaxin) AdvReac Unknown ADR-Blurry Verified 03/01/25 08:30 Vision Current Medications Generic Name Dose Route Start Last Admin Trade Name Freq PRN Reason Stop Dose Admin Sodium Chloride 1,000 mls @ 30 mls/hr 03/01/25 08:30 03/01/25 11:48 Sodium Chloride 0.9% IV 03/02/25 08:29 Infused .Q24H YAHAIRA Infusion PFSH Acute PFSH: Medical History Supplemental oxygen dependent Inogen oxygen on exertion Dependence on nocturnal oxygen therapy 4L oxygen at night into CPAP Constipation by delayed colonic transit Overflow diarrhea Restless leg syndrome COPD (chronic obstructive pulmonary disease) Nicotine dependence, cigarettes, in remission Family hx of colon cancer mother, brother Restrictive lung disease Pulmonary hypertension Type 2 diabetes mellitus sees endo Hyperlipidemia PRV (polycythemia rubra vera) 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 Peripheral neuropathy History of colon polyps Obstructive sleep apnea on CPAP Elevated PSA GERD (gastroesophageal reflux disease) Osteoarthritis Ascending aortic aneurysm Atrial fibrillation Diastolic heart failure HTN (hypertension) Surgical History Hx of cardiac catheterization 5.. cardiac cath OZH: normal coronary arteries History of total left knee replacement (TKR) Hx of arthroscopy of left knee Hx of bilateral cataract extraction History of cardioversion a fib History of esophagogastroduodenoscopy Status post colonoscopy with polypectomy 6.. hyperplastic polyps but fam hx so f/u 5 yrs S/P appendectomy S/P cholecystectomy Family History Father Diabetes Sepsis Bleeding disorder Clotting disorder Brother Diabetes Cancer stomach; colon Mother Cancer colon; liver Heart failure CAD (coronary artery disease) 50s Lung disease Grandfather Dementia Denies family history of Chronic kidney disease (CKD) Suicide Anesthesia complication Stroke Social History Smoking and tobacco/nicotine status: never used tobacco/nicotine Quit status (tobacco/nicotine): has quit using Year quit tobacco: 2012 - 1PPD x 40 Years Second hand smoke exposure: No Alcohol intake: never Substance/Drug Use: never Lives independently: Yes Household members: spouse and other Details: grown son Marital status: Number of children: 4 Highest education level completed: Some College, No Degree Current occupational status: disabled Previous occupational history: 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; 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 Leisure activites: reading Do you think of yourself as: Straight/Heterosexual Current gender identity: Male Vitals/I&O/Wt Last Vital Signs Temp 97.3 F L 03/01/25 13:29 Pulse 78 03/01/25 14:43 Resp 16 03/01/25 14:43 BP 119/71 03/01/25 14:43 Pulse Ox 97 03/01/25 14:43 O2 Del Method Nasal Cannula 03/01/25 14:43 O2 Flow Rate 4 03/01/25 14:43 02/28/25 03/01/25 03/01/25 22:59 06:59 14:59 Intake Total 1750 / 1750 Output Total 140 / 140 Balance 1610 / 1610 Weight last 48 hrs Weight 138.346 kg Physical Exam Narrative: Patient alert oriented in mild distress due to knee pain Neuro is intact nonfocal Neck is supple do not JVD carotid bruits or lymphadenopathy Heart is regular normal S1-S2 without murmurs clicks gallops or rubs Lungs are clear to auscultation anteriorly Abdomen is obese soft nontender nondistended positive bowel sounds no hepatosplenomegaly palpable Extremities right lower extremity is wrapped with ice packs. No significant edema. Left extremity without edema Urinary Catheter Management: Avalos: Cath Placed During This Visit: yes Urinary Catheter Date of Insertion: 03/01/25 Urinary Catheter Time of Insertion: 10:16 Data 03/01/25 08:55 03/01/25 09:45 A&P Assessment and plan 1. Supplemental oxygen dependent: 2. Dependence on nocturnal oxygen therapy: 3. COPD (chronic obstructive pulmonary disease): 4. Progressive pulmonary hypertension: 5. 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 Uncontrolled type 2 diabetes mellitus: 7. Morbid obesity: 8. Atrial fibrillation: 9. Diastolic heart failure: 10. HTN (hypertension): Plan: SAMRA: to bring in home CPAP machine he wears 4 L bleed through Pulmonary hypertension: resume home meds Atrial fibrillation: Anticoagulation on hold. Discussed with Dr. Wilkins. His preference is to follow hemoglobin next morning and if stable consider half dose Eliquis postop day 1 COPD: Inhalers and nebs Chronic kidney disease: will follow expectantly History of hypertension: Preoperatively, intraoperatively and postoperatively patient has been hypotensive. Patient received dose of Alden-Synephrine intraoperatively. Will hold antihypertensives and diuretics at this time. Will not require DVT prophylaxis as patient is on long-term anticoagulation which will be restarted by day 2 PDMP PDMP Reviewed: Not Reviewed Consult Attestations Medical Necessity Statement: Per primary Coding Level of Care Code Acute Code for Chg Fwd Diagnoses Supplemental oxygen dependent Z99.81 Dependence on nocturnal oxygen therapy Z99.81 COPD (chronic obstructive pulmonary disease) J44.9 Progressive pulmonary hypertension I27.20 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 E11.22 Uncontrolled type 2 diabetes mellitus Morbid obesity E66.01 Atrial fibrillation I48.91 Diastolic heart failure I50.30 HTN (hypertension) I10
--- NOTE | 2025-03-01 15:46 | PM.PACU ---
PACU note Narrative: Patient 74-year-old male that underwent a right total knee arthroplasty. Pt transferred to PACU in stable condition. Dressing is dry. pt is awake and alert. pt can wiggle toes and plantarflex and dorsiflex foot. pt able to perform straight leg raise, Femoral nerve intact. Distal pulses are palpable toes are warm and well-perfused. Cap refill is normal and under 2 seconds. Sensation to foot is intact. Pain is controlled. Exam: awake Disposition: admitted
[2025-03-01] MEDS: tranexamic acid 1,000 MG/100 ML PREMIX 600 MG IV (17:57)
[2025-03-01] MEDS: calcium carb-vit d 600mg/400unit 1 Tablet 1 EACH PO (18:01)
[2025-03-01] MEDS: mupirocin oint 22 gm 1 APPLIC NASAL (18:01)
[2025-03-01] MEDS: sennosides-docusate Tablet 2 TAB PO (18:01)
[2025-03-01] MEDS: chlorhexidine gluconate 0.12% Btl 473 mL 30 ML MUCOUS MEM ×3 (18:02→20:47)
[2025-03-01] MEDS: ATORVASTATIN 10 MG TABLET 20 MG PO (20:47)
[2025-03-01] MEDS: HYDROcodone-acetaminophen 10-325 mg Tablet PO (20:52)
--- OUTSIDE RECORDS SUMMARY | 2025-03-01 21:35 | XMS_ITS | Patient Health Record ---
Author Organization [facility] Address [address] [place] [address] Care Team Providers Care Content Curator Name Role Phone TIFFANY MARQUEZ Primary Care Provider Shea Fregoso Unavailable [phone] ALLERGIES Allergen (clinical drug ingredient) Drug/Non Drug Allergy documented on EMR Reaction Allergy Type Onset Date Status codeine Codeine Sulfate Unknown Drug Allergy A ctive Levaquin rash Drug Allergy Active metaxalone Skelaxin Unknown Drug Allergy Active REASON FOR REFERRAL No Information MEDICATIONS Medication SIG (Take, Route, Frequency, Duration) Notes Start Date End Date Status Hydrocortisone 1 % 1 application Externally Once a day for 30 day(s) Active Ventolin HFA 108 (90 Base) MCG/ACT INHALE 1 TO 2 PUFFS BY MOUTH EVERY 4 TO 6 HOURS NEEDED for 25 Active Flonase 50 MCG/ACT 2 spray in each nostril Nasally Once a day for 30 day(s) 02/05/2022 Active Nystatin-Triamcinolone 420491-2.1 UNIT/GM 1 application Externally Twice a day for 30 days 04/12/2022 Active Tadalafil 5 MG TAKE 1 TABLET BY MOUTH ONCE DAILY NEEDED URINARY RETENTION FOR 90 DAYS for 90 Active hydrOXYzine HCl 50 MG TAKE 1 TABLET BY MOUTH EVERY 8 HOURS NEEDED FOR ITCHING Orally Once a day for 90 days Active Flonase Allergy Relief 50 MCG/ACT 1 spray in each nostril Nasally TWICE A DAY Active Anoro Ellipta 62.5-25 MCG/ACT Inhale 1 puff by mouth once daily for 30 Active Anoro Ellipta 62.5-25 MCG/INH 1 puff Inhalation Once a day Active amLODIPine Besylate 5 MG Take 1 tablet b y mouth once daily for 90 Active Zofran 8 MG 1 tablet as needed Orally Q 6 hrs prn for 30 days 08/22/2023 Active Sertraline HCl 100 MG Take 1 tablet by mouth once daily for 90 Active Magnesium Oxide -Mg Supplement 400 (240 Mg) MG Take 1 tablet by mouth once daily for 90 Active Eliquis 5 MG 1 tablet Orally Twic e a day for 90 days Active Neurontin 100 MG 1 capsule Orally Onc e a day for 90 day(s) 01/10/2023 Active Aspirin Adult Low Dose 81 MG 2 tablet Orally twice a day OTC Active Zithromax Z-Anastacio 250 MG as directed Orall y take 2 tablets day one and then one tablet days 2-4 for 5 days 04/22/2023 Not-Taking Spironolactone 25 MG 1 tablet Orally Active metOLazone 2.5 MG Take 1 tablet by mouth once daily for 90 Active Tamsulosin HCl 0.4 MG Take 1 capsule by mouth twice daily for 90 Active Carvedilol 25 MG 1 tablet with food i n the AM, 1/2 tab in PM Orally Twice a day Active Lasix 40 MG 1 tablet Orally Twic e a day Active rOPINIRole HCl 1 MG TAKE 1 TABLET BY MOUTH THREE TIMES DAILY for 90 Active Potassium Chloride [place]ilah ER 20 MEQ TAKE 1 TO 2 TABLETS BY MOUTH ONCE DAILY WITH FOOD for 90 Active Finasteride 5 MG Take 1 tablet by mouth once daily for 90 Active Ozempic (0.25 or 0.5 MG/DOSE) 2 MG/1.5ML 2mg Subcutaneous Once a week Dr Brumfield Active Jardiance 10 MG 2 tablets Orally Twice a day Active Simvastatin 20 MG 1 tablet in the evening Orally Once a day for 90 days Active Amoxil 500 MG 1 capsule Orally Three times a day for 7 days 07/04/2023 Not-Taking Hydroxyurea 500 MG 1 capsule Orally twice a day Active Dexlansoprazole 60 MG Take 1 capsule by mouth once daily for 90 Active IMMUNIZATIONS Vaccine Route Administration Date Status Comme nts Fluzone Hi Dose 65+ IM Intramuscular 04/11/2023 Administer ed Fluzone Vac No PRSV 4 ARMEN 6 months + IM Intramuscular 04/14/2020 Administered Fluzone Vac No PRSV 4 ARMEN 6 months + IM Intramuscular 04/12/2022 Administered Pneumococcal polysaccharide PPV23 Unknown 03/20/2013 Administered SOCIAL HISTORY Tobacco Use: Social History Observation Description Date Details (start date - stop date) Never Smoker NA - NA Sex Assigned At : Social History Observation Description Sex Assigned At Unknown Tobacco Use/Smoking Question Answer Notes Are you a nonsmoker Alcohol Screen (Audit-C) Question Answer Notes Did you have a drink containing alcohol in the p ast year? No Points 0 Interpretation Negative PROBLEMS Problem Type ICD Code Onset Dates Problem Status W/U Status Risk SNOMED Code Notes Problem Encounter for immunization (Z23) Active confirmed 041770022 Problem Type 2 diabetes mellitus without complication, without long-term current use of insulin (E11.9) Active confirmed 994499905 Problem Chronic obstructive pulmonary disease, unspecified COPD type (J44.9) Active confirmed 25933287 Problem Atrial fibrillation, unspecified type (I48.91) Active confirmed 05681299 Problem Primary osteoarthritis of both knees (M17.0) Active confirmed 638792164 Problem SAMRA (obstructive sleep apnea) (G47.33) Active confirmed 15084387 Problem COPD exacerbation (J44.1) Active confirmed 638082528 Problem RLS (restless legs syndrome) (G25.81) Active confirmed 58706979 Problem Generalized pruritus (L29.9) Active confirmed 095126825 Problem Decline in verbal memory (R41.3) Active confirmed 501455575 Problem Constipation by delayed colonic transit (K59.01) Active confirmed Constipatio n by delayed colonic transit (44456562) Problem Primary hypertension (I10) Active confirmed 12172069 Encounters Encounter Location Date Provider Diagnosis [facility] [address] [place] [address] 07/24/2024 Shea Fregoso PLAN OF TREATMENT No Information Insurance Providers Payer Name Payer Address Payer Phone Subscriber Number Group Number Insured Name Patient Relationship to Insured Coverage Start Date Coverage End Date MEDICARE OF [place] [address] DERIC LAITH BARBA [id number] TRISTIN FARIAS Self - patient is the insured MEDICATIONS ADMINISTERED Medication Instructions Date of Administration Dosage Notes dexAMETHasone Sodium Phosphate 04/11/2023 4 mg dexAMETHasone Sodium Phosphate 07/04/2023 4 mg DEPO-Medrol 04/11/2023 40 mg DEPO-Medrol 07/04/2023 40 mg MEDICAL (GENERAL) HISTORY Medical History History ICD Code Atrial fibrillation, unspecified type I4 8.91 Polycythemia vera D45 Gastro-esophageal reflux disease without esophagitis K21.9 Essential (primary) hypertension I10 Benign prostatic hyperplasia without low er urinary tract symptoms N40.0 Sleep apnea, unspecified G47.30 Mood disorder F39 Thoracic aortic aneurysm, without ruptur e I71.2 Chronic obstructive pulmonary disease, u nspecified J44.9 OA, Generalized Surgical History Surgery Date(Month/Year) Arthroscopic knee surgery L Appendectomy Cholecystectomy Cardiac cath Cataract Resection
[2025-03-02] VITALS (8 sets, daily range): BP systolic 110–132; BP diastolic 64–74; PULSE 91–104; RESP 15–20; TEMP 36.7–36.9; O2SAT 90–97
[2025-03-02] MEDS: acetaminophen 1,000 MG/100 ML PIGGYBACK 400 MG IV (00:49)
[2025-03-02] MEDS: fluticasone nasal spray 16gm Btl 2 SPRAY NASAL (01:28)
[2025-03-02 04:49] LABS: Hematocrit 44.9 % (37-53); Hemoglobin 14.30 g/dL (11.27-16.99); Mean Corpuscular HGB Conc 31.8 g/dL (30-55); Mean Corpuscular Hemoglobin 36.4 pg (27-33); Mean Corpuscular Volume 114.2 fl (82-101); Nucleated Red Blood Cells % 0 %; Platelet Count 279 10^3/cmm (157-399); Red Blood Count 3.93 10^6/uL (3.85-5.65); White Blood Count 10.65 10^3/uL (3.29-11.43)
[2025-03-02 05:06] LABS: Anion Gap 14.3 (5-19); Blood Urea Nitrogen 20 mg/dL (8-23); Calcium 8.0 mg/dL (8.5-10.5); Carbon Dioxide 24 mmol/L (22-29); Chloride 105 mmol/L (98-107); Creatinine Clr Calc Pharmacy 85.1188; Glucose 173 mg/dL (65-115); Osmolality Calculated 295 mOsm/kg (285-295); Potassium 4.3 mmol/L (3.5-5.1); Sodium 139 mmol/L (136-145)
[2025-03-02] MEDS: sennosides-docusate Tablet 2 TAB PO ×2 (07:57→17:48)
[2025-03-02] MEDS: multivitamin therapeutic Tablet 1 TAB PO (07:58)
[2025-03-02] MEDS: HYDROcodone-acetaminophen 10-325 mg Tablet PO ×2 (07:58→13:52)
[2025-03-02] MEDS: mupirocin oint 22 gm 1 APPLIC NASAL ×2 (07:59→17:50)
[2025-03-02] MEDS: calcium carb-vit d 600mg/400unit 1 Tablet 1 EACH PO ×2 (07:59→17:49)
[2025-03-02] MEDS: chlorhexidine gluconate 0.12% Btl 473 mL 30 ML MUCOUS MEM ×4 (08:00→21:33)
--- NOTE | 2025-03-02 13:16 | P.PN_ITS ---
Subjective 2 Subjective: Seen sitting in a chair after eating lunch. Complains of postsurgical pain. No chest pain no shortness of breath. Tolerating diet Vitals/I&O/Wt Last Vital Signs Temp 98.2 F 03/02/25 11:18 Pulse 98 03/02/25 11:31 Resp 16 03/02/25 11:31 BP 114/71 03/02/25 11:18 Pulse Ox 96 03/02/25 11:31 O2 Del Method Nasal Cannula 03/02/25 11:31 O2 Flow Rate 3 03/02/25 11:31 03/01/25 03/02/25 03/02/25 22:59 06:59 14:59 Intake Total 851.667 / 2601.667 1438.333 / 4040.000 1703.333 / 1703.333 Output Total 800 / 940 1100 / 2040 200 / 200 Balance 51.667 / 1661.667 338.333 / 2000.000 1503.333 / 1503.333 Weight last 48 hrs Weight 101.423 kg Weight 138.346 kg Weight 138.346 kg Physical Exam 2 Narrative: Heart is regular normal S1-S2 without murmurs clicks gallops or rubs Lungs are clear to auscultation anteriorly Abdomen is obese soft nontender nondistended positive bowel sounds no hepatosplenomegaly palpable Extremities right lower extremity is wrapped. No significant edema. Left extremity without edema Urinary Catheter Management: Avalos: Cath Placed During This Visit: yes, but has since been removed by the nurse Reason for Continuing Indwelling Catheter: Other Urinary Catheter Date of Insertion: 03/01/25 Urinary Catheter Time of Insertion: 10:16 Date Urinary Catheter Removed: 03/02/25 Time Urinary Catheter Discontinued: 05:06 Data 03/02/25 04:23 03/02/25 04:23 A&P Assessment and plan 1. Supplemental oxygen dependent: 2. Dependence on nocturnal oxygen therapy: 3. COPD (chronic obstructive pulmonary disease): 4. Progressive pulmonary hypertension: 5. 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 Uncontrolled type 2 diabetes mellitus: 7. Morbid obesity: 8. Atrial fibrillation: 9. Diastolic heart failure: 10. HTN (hypertension): Plan: SAMRA: to bring in home CPAP machine he wears 4 L bleed through Pulmonary hypertension: resume home meds Atrial fibrillation: Anticoagulation on hold. Discussed with Dr. Wilkins. His preference is to follow hemoglobin next morning and if stable consider half dose Eliquis postop day 1 COPD: Inhalers and nebs Chronic kidney disease: will follow expectantly History of hypertension: Blood pressure stable. Reordered home medications Reordered other home medications as indicated except for Eliquis will await Dr. Wilkins's recommendations Will not require DVT prophylaxis as patient is on long-term anticoagulation which will be restarted by day 2 PDMP PDMP Reviewed: Not Reviewed Attestations 2 Medical Necessity Statement*: Per primary Coding Level of Care Code Acute Code for Chg Fwd Diagnoses Supplemental oxygen dependent Z99.81 Dependence on nocturnal oxygen therapy Z99.81 COPD (chronic obstructive pulmonary disease) J44.9 Progressive pulmonary hypertension I27.20 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 E11.22 Uncontrolled type 2 diabetes mellitus Morbid obesity E66.01 Atrial fibrillation I48.91 Diastolic heart failure I50.30 HTN (hypertension) I10
--- NOTE | 2025-03-02 13:21 | P.PN_ITS ---
Subjective 2 Subjective: Patient seen and examined today. He has been slower to rest with therapy he is having some weakness in his left leg and at this point in time he has barely gotten up with therapy will recommend at least another day of focused dedicated physical therapy and Occupational Therapy and will reevaluate patient tomorrow still goals plan to discharge home with care. Vitals/I&O/Wt Last Vital Signs Temp 98.2 F 03/02/25 11:18 Pulse 98 03/02/25 11:31 Resp 16 03/02/25 11:31 BP 114/71 03/02/25 11:18 Pulse Ox 96 03/02/25 11:31 O2 Del Method Nasal Cannula 03/02/25 11:31 O2 Flow Rate 3 03/02/25 11:31 03/01/25 03/02/25 03/02/25 22:59 06:59 14:59 Intake Total 851.667 / 2601.667 1438.333 / 4040.000 1703.333 / 1703.333 Output Total 800 / 940 1100 / 2040 200 / 200 Balance 51.667 / 1661.667 338.333 / 2000.000 1503.333 / 1503.333 Weight last 48 hrs Weight 223 lb 9.6 oz Weight 305 lb Weight 305 lb Physical Exam 2 Narrative: Right knee examination: Dressing on in place, clean dry and intact. No evidence of saturation. Patient has normal postoperative swelling and tenderness to palpation to the knee. Compartments are soft compressible,'s calf soft and nontender. Sensations intact to light touch distally. Distal pulses are palpable. Patient is able to wiggle toes as well as plantarflex and dorsiflex ankle. Urinary Catheter Management: Avalos: Cath Placed During This Visit: yes, but has since been removed by the nurse Reason for Continuing Indwelling Catheter: Other Urinary Catheter Date of Insertion: 03/01/25 Urinary Catheter Time of Insertion: 10:16 Date Urinary Catheter Removed: 03/02/25 Time Urinary Catheter Discontinued: 05:06 Data 03/02/25 04:23 03/02/25 04:23 Xray Ortho: Radiologist's impression: Patient: Seferino Rashid Unit #: [id number] : 1950 Age/Sex: 74 / M ADM Date: 03/01/25 Loc: OR Room/Bed: Attending Dr: Jason Wilkins DO Ordering Provider/Ordering MD: Jason Wilkins Date of Service: 03/01/25 Procedure(s): XR knee RT 1-2V 48864 Accession Number(s): [id number] Report Number: [id number] WS: [id number] Right knee, AP and lateral views, 03/01/2025 Clinical Data: postop R TKA Comparison: Bilateral knees, 10/06/2024 Findings: There is a right knee arthroplasty. The components are in good position. Postoperative air is in the joint space. XR/XR knee RT 1-2V 40696 Impression: Right knee arthroplasty. A&P Assessment and plan 1. S/P total knee replacement using cement: Plan: POD #1 R TKA Weight-bear as tolerated to operative lower extremity Ice as needed for pain and swelling pain control PT/OT Resume Diet Postop TXA and postoperative antibiotics given Dressing changes as needed AM labs reviewed Postoperative x-rays reviewed Internal medicine consulted for medical management appreciate their assistance DVT prophylaxis (Eliquis)resume half dose today then progress to standard dose tomorrow Patient at this point in time is been slow with therapy and ultimately would benefit from an additional night stay as he has not been able to mobilize much. I feel as though potentially additional night stay with increased therapy all chemotherapy needs to hopefully get him established for home health care goals of still hopeful discharge tomorrow. Patient and family understand agree with current plan. Questions answered. PDMP PDMP Reviewed: Not Reviewed Attestations 2 Medical Necessity Statement*: Ongoing cares status post right total knee arthroplasty increased demands with therapy needing additional night stay for physical therapy for preparation for hopeful discharge home Coding Level of Care Code Acute Code for Chg Fwd Diagnoses S/P total knee replacement using cement Z96.659
[2025-03-02] MEDS: APIXABAN 2.5 MG TABLET PO (21:31)
[2025-03-02] MEDS: ATORVASTATIN 10 MG TABLET 20 MG PO (21:31)
[2025-03-03] VITALS (10 sets, daily range): BP systolic 101–137; BP diastolic 59–78; PULSE 90–105; RESP 14–22; TEMP 36.5–37; O2SAT 90–94
[2025-03-03 02:40] LABS: Hematocrit 43.7 % (37-53); Hemoglobin 13.80 g/dL (11.27-16.99); Mean Corpuscular HGB Conc 31.6 g/dL (30-55); Mean Corpuscular Hemoglobin 36.3 pg (27-33); Mean Corpuscular Volume 115.0 fl (82-101); Nucleated Red Blood Cells % 0 %; Platelet Count 290 10^3/cmm (157-399); Red Blood Count 3.80 10^6/uL (3.85-5.65); White Blood Count 12.76 10^3/uL (3.29-11.43)
[2025-03-03 02:59] LABS: Anion Gap 11.3 (5-19); Blood Urea Nitrogen 18 mg/dL (8-23); Calcium 8.3 mg/dL (8.5-10.5); Carbon Dioxide 25 mmol/L (22-29); Chloride 107 mmol/L (98-107); Creatinine Clr Calc Pharmacy 72.4382; Glucose 173 mg/dL (65-115); Osmolality Calculated 294 mOsm/kg (285-295); Potassium 4.3 mmol/L (3.5-5.1); Sodium 139 mmol/L (136-145)
[2025-03-03] MEDS: calcium carb-vit d 600mg/400unit 1 Tablet 1 EACH PO ×2 (05:15→17:09)
[2025-03-03] MEDS: sennosides-docusate Tablet 2 TAB PO ×2 (05:15→17:09)
[2025-03-03] MEDS: mupirocin oint 22 gm 1 APPLIC NASAL ×2 (05:17→17:10)
[2025-03-03] MEDS: HYDROcodone-acetaminophen 10-325 mg Tablet PO ×2 (08:05→13:45)
[2025-03-03] MEDS: APIXABAN 2.5 MG TABLET PO ×2 (08:06→21:04)
[2025-03-03] MEDS: multivitamin therapeutic Tablet 1 TAB PO (08:09)
[2025-03-03] MEDS: chlorhexidine gluconate 0.12% Btl 473 mL 30 ML MUCOUS MEM ×4 (08:09→21:06)
--- NOTE | 2025-03-03 09:55 | P.PN_ITS ---
Subjective 2 Subjective: Patient complaining of severe pain in the leg and inability to raise leg without assistance. I saw the patient just about 9 AM. He had been given hydrocodone 10 mg 2 tablets at 805. And he was still remarking that he was in terrible pain. Clinically no physical signs of pain however it was reported that perhaps the spinal was still in effect causing the feeling of weakness Vitals/I&O/Wt Last Vital Signs Temp 98.3 F 03/03/25 07:17 Pulse 97 03/03/25 08:32 Resp 18 03/03/25 08:23 BP 116/70 03/03/25 07:17 Pulse Ox 94 03/03/25 08:23 O2 Del Method Nasal Cannula 03/03/25 08:23 O2 Flow Rate 2 03/03/25 08:23 03/02/25 03/03/25 03/03/25 22:59 06:59 14:59 Intake Total 1000 / 2943.333 200 / 3143.333 240 / 240 Output Total 100 / 300 Balance 1000 / 2743.333 100 / 2843.333 240 / 240 Weight last 48 hrs Weight 147.009 kg Weight 101.423 kg Weight 138.346 kg Physical Exam 2 Narrative: Heart is regular normal S1-S2 without murmurs clicks gallops or rubs Lungs are clear to auscultation anteriorly Abdomen is obese soft nontender nondistended positive bowel sounds no hepatosplenomegaly palpable Extremities right lower extremity is wrapped. Cap refill on the right foot okay; no significant edema. Left extremity with minimal pitting edema in the foot Urinary Catheter Management: Avalos: Cath Placed During This Visit: yes, but has since been removed by the nurse Reason for Continuing Indwelling Catheter: Other Urinary Catheter Date of Insertion: 03/01/25 Urinary Catheter Time of Insertion: 10:16 Date Urinary Catheter Removed: 03/02/25 Time Urinary Catheter Discontinued: 05:06 Data 03/03/25 02:31 03/03/25 02:31 A&P Assessment and plan 1. Supplemental oxygen dependent: 2. Dependence on nocturnal oxygen therapy: 3. COPD (chronic obstructive pulmonary disease): 4. Progressive pulmonary hypertension: 5. 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 Uncontrolled type 2 diabetes mellitus: 7. Morbid obesity: 8. Atrial fibrillation: 9. Diastolic heart failure: 10. HTN (hypertension): Plan: SAMRA: On home CPAP machine he wears 4 L bleed through Pulmonary hypertension: resume home meds Atrial fibrillation: Resumed half dose Eliquis yesterday will increase to full dose tonight COPD: Inhalers and nebs Chronic kidney disease: will follow expectantly History of hypertension: Blood pressure stable. 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
--- NOTE | 2025-03-03 11:25 | PC.OT ---
OT TREATMENT ATTEMPTED. PATIENT STATES THAT HE IS TIRED; REQUESTS THERAPIST TO RETURN LATER IN AFTERNOON.
--- NOTE | 2025-03-03 13:23 | P.PN_ITS ---
Subjective 2 Subjective: Patient seen and examined today has been slow to progress with therapy planning on inpatient rehab at discharge Vitals/I&O/Wt Last Vital Signs Temp 98.0 F 03/03/25 11:34 Pulse 92 03/03/25 11:34 Resp 18 03/03/25 11:34 BP 101/59 03/03/25 11:34 Pulse Ox 91 03/03/25 11:34 O2 Del Method Room Air 03/03/25 11:34 O2 Flow Rate 2 03/03/25 08:23 03/02/25 03/03/25 03/03/25 22:59 06:59 14:59 Intake Total 1000 / 2943.333 200 / 3143.333 240 / 240 Output Total 100 / 300 Balance 1000 / 2743.333 100 / 2843.333 240 / 240 Weight last 48 hrs Weight 324 lb 1.6 oz Weight 223 lb 9.6 oz Weight 305 lb Physical Exam 2 Narrative: Right knee examination: Dressing on in place, clean dry and intact. No evidence of saturation. Patient has normal postoperative swelling and tenderness to palpation to the knee. Compartments are soft compressible,'s calf soft and nontender. Sensations intact to light touch distally. Distal pulses are palpable. Patient is able to wiggle toes as well as plantarflex and dorsiflex ankle. Urinary Catheter Management: Avalos: Cath Placed During This Visit: yes, but has since been removed by the nurse Reason for Continuing Indwelling Catheter: Other Urinary Catheter Date of Insertion: 03/01/25 Urinary Catheter Time of Insertion: 10:16 Date Urinary Catheter Removed: 03/02/25 Time Urinary Catheter Discontinued: 05:06 Data 03/04/25 02:53 03/04/25 02:53 Xray Ortho: Radiologist's impression: Ordering Provider/Ordering MD: Jason Wilkins Date of Service: 03/01/25 Procedure(s): XR knee RT 1-2V 99845 Accession Number(s): [id number] Report Number: [id number] WS: [id number] Right knee, AP and lateral views, 03/01/2025 Clinical Data: postop R TKA Comparison: Bilateral knees, 10/06/2024 Findings: There is a right knee arthroplasty. The components are in good position. Postoperative air is in the joint space. XR/XR knee RT 1-2V 65680 Impression: Right knee arthroplasty. A&P Assessment and plan 1. S/P total knee replacement using cement: Plan: POD # 2 R TKA Weight-bear as tolerated to operative lower extremity Ice as needed for pain and swelling pain control PT/OT Resume Diet Postop TXA and postoperative antibiotics given Dressing changes as needed AM labs reviewed Postoperative x-rays reviewed Internal medicine consulted for medical management appreciate their assistance DVT prophylaxis (Eliquis) patient resuming home Eliquis medications Patient at this point in time is been slow with therapy and ultimately would benefit from an additional night stay as he has not been able to mobilize much. at this point in time he is still having increased therapy demands and after discussing with therapy patient would benefit from acute patient rehab currently working on placement for discharge at this upon discharge from the hospital. Patient and family understand agree with current plan. Questions answered. PDMP PDMP Reviewed: Not Reviewed Attestations 2 Medical Necessity Statement*: Ongoing care status post right total knee arthroplasty, patient's been slow to progress with therapy working on discharge planning to inpatient rehab Coding Level of Care Code Acute Code for Chg Fwd Diagnoses S/P total knee replacement using cement Z96.659 Time Spent (min) 10
[2025-03-03] MEDS: ATORVASTATIN 10 MG TABLET 20 MG PO (21:04)
[2025-03-04 03:10] LABS: Hematocrit 41.6 % (37-53); Hemoglobin 13.40 g/dL (11.27-16.99); Mean Corpuscular HGB Conc 32.2 g/dL (30-55); Mean Corpuscular Hemoglobin 36.4 pg (27-33); Mean Corpuscular Volume 113.0 fl (82-101); Nucleated Red Blood Cells % 0 %; Platelet Count 296 10^3/cmm (157-399); Red Blood Count 3.68 10^6/uL (3.85-5.65); White Blood Count 15.17 10^3/uL (3.29-11.43)
[2025-03-04 03:27] LABS: Blood Urea Nitrogen 23 mg/dL (8-23); Calcium 8.2 mg/dL (8.5-10.5); Carbon Dioxide 24 mmol/L (22-29); Chloride 106 mmol/L (98-107); Creatinine Clr Calc Pharmacy 69.2167; Glucose 175 mg/dL (65-115); Osmolality Calculated 296 mOsm/kg (285-295); Sodium 139 mmol/L (136-145)
[2025-03-04 03:31] LABS: Anion Gap 13.3 (5-19); Potassium 4.3 mmol/L (3.5-5.1)
[2025-03-04 03:58] VITALS: BP 109/59; PULSE 107; RESP 23; TEMP 36.8; O2SAT 91
[2025-03-04] MEDS: HYDROcodone-acetaminophen 10-325 mg Tablet PO ×2 (05:17→11:27)
[2025-03-04] MEDS: sennosides-docusate Tablet 2 TAB PO ×2 (05:17→16:58)
[2025-03-04] MEDS: calcium carb-vit d 600mg/400unit 1 Tablet 1 EACH PO ×2 (05:18→16:58)
[2025-03-04] MEDS: mupirocin oint 22 gm 1 APPLIC NASAL (05:19)
[2025-03-04 07:56] VITALS: BP 106/61; PULSE 90; RESP 17; TEMP 36.6; O2SAT 92
[2025-03-04] MEDS: APIXABAN 2.5 MG TABLET PO (09:34)
[2025-03-04] MEDS: multivitamin therapeutic Tablet 1 TAB PO (09:34)
[2025-03-04] MEDS: chlorhexidine gluconate 0.12% Btl 473 mL 30 ML MUCOUS MEM ×2 (09:35→11:27)
[2025-03-04 11:12] VITALS: PULSE 89; RESP 18; O2SAT 93
--- NOTE | 2025-03-04 11:27 | P.PN_ITS ---
Subjective 2 Subjective: Patient reports he is about the same Physical therapy reports he did much better today Vitals/I&O/Wt Last Vital Signs Temp 97.8 F 03/04/25 07:56 Pulse 89 03/04/25 11:12 Resp 18 03/04/25 11:12 BP 106/61 03/04/25 07:56 Pulse Ox 93 03/04/25 11:12 O2 Del Method Nasal Cannula 03/04/25 11:12 O2 Flow Rate 1.5 03/04/25 11:12 03/03/25 03/04/25 03/04/25 22:59 06:59 14:59 Intake Total 940 / 1300 200 / 1500 240 / 240 Output Total 1000 / 1000 100 / 1100 150 / 150 Balance -60 / 300 100 / 400 90 / 90 Weight last 48 hrs Weight 144.877 kg Weight 147.009 kg Physical Exam 2 Narrative: Heart is regular normal S1-S2 without murmurs clicks gallops or rubs Lungs are clear to auscultation, poor aeration Abdomen is obese soft nontender nondistended positive bowel sounds no hepatosplenomegaly palpable Extremities right lower extremity is wrapped. Cap refill on the right foot okay; no significant edema. Left extremity with minimal pitting edema in the foot Skin on back no change of ecchymosis from spinal Urinary Catheter Management: Avalos: Cath Placed During This Visit: yes, but has since been removed by the nurse Reason for Continuing Indwelling Catheter: Other Urinary Catheter Date of Insertion: 03/01/25 Urinary Catheter Time of Insertion: 10:16 Date Urinary Catheter Removed: 03/02/25 Time Urinary Catheter Discontinued: 05:06 Data 03/04/25 02:53 03/04/25 02:53 A&P Assessment and plan 1. Supplemental oxygen dependent: 2. Dependence on nocturnal oxygen therapy: 3. COPD (chronic obstructive pulmonary disease): 4. Progressive pulmonary hypertension: 5. 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 Uncontrolled type 2 diabetes mellitus: 7. Morbid obesity: 8. Atrial fibrillation: 9. Diastolic heart failure: 10. HTN (hypertension): Plan: * Mild dehydration based on a serum creatinine of 1.4. Encouraged oral intake of water. Ordered nurse message for the same. Must drink 2 L in the next 4 hours from when I saw him * Diminished breath sounds: Encouraged incentive spirometry 10 breaths every hour I educated him and he demonstrated correct usage * SAMRA: On home CPAP machine he wears 4 L bleed through * Pulmonary hypertension: resume home meds * Atrial fibrillation: Now on full dose Eliquis * COPD: Inhalers and nebs * Chronic kidney disease: As above creatinine 1.4 encourage fluids can follow at rehab * History of hypertension: Blood pressure stable. 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
[2025-03-04 11:34] VITALS: BP 137/67; PULSE 85; RESP 19; TEMP 36.5; O2SAT 93
--- NOTE | 2025-03-04 11:52 | P.DS_ITS ---
Discharge Providers Date of Admission: 03/01/25 15:42 Date of Discharge: March 04, 2025 Attending Provider at Admission: Jason Wilkins DO Attending Provider at Discharge: Jason Wilkins DO Consults: Dr. Bess?hospitalist Primary Care Provider: Racheal Chang MD Diagnoses at Discharge Discharge Diagnosis 1. S/P total knee replacement using cement: 2. Supplemental oxygen dependent: 3. Dependence on nocturnal oxygen therapy: 4. Chronic obstructive pulmonary disease, unspecified COPD type: 5. Progressive pulmonary hypertension: 6. Type 2 diabetes mellitus with stage 2 chronic kidney disease, without long- term current use of insulin: 7. Uncontrolled type 2 diabetes mellitus with hyperglycemia: 8. Morbid obesity: 9. Longstanding persistent atrial fibrillation: 10. Acute on chronic diastolic heart failure: 11. Essential hypertension: Reason for Visit Reason for Visit: [id number] Brief History: Status post right total knee arthroplasty?[facility] robotic assisted Hospital Course Hospital Course Patient presented to the preoperative holding area with plan for right total knee arthroplasty after patient has been worked up in the outpatient setting for failed conservative treatment of right knee degenerative joint disease. Once cleared by anesthesia for surgery patient subsequently was taken back to the operative suite underwent anesthesia per anesthesia department and then subsequently underwent a right total knee arthroplasty. Procedure was performed without any complications patient was taken to PACU in stable condition patient recovered well in PACU and then was admitted to the floor postoperatively internal medicine was consulted and on board for medical management and assistance with care. Patient received appropriate PT/OT, postoperative antibiotics, postoperative TXA, pain control, postoperative DVT prophylaxis. Elevation and ice. Patient encouraged for knee range of motion allowed weightbearing as tolerated to the operative lower extremity. Dressing was changed as needed, labs were monitored daily. Patient recovered well postoperatively and had to continue to work with therapy unfortunately he was very slow and very decrease in mobility during his therapy sessions postoperatively requiring increased therapy demands at this point in time not safe for discharge home we ultimately with case management and recommendation with therapy patient elects excepted for inpatient rehab facility. Please refer to daily progress notes with internal medicine for any medical management details and treatment. Patient did have increase in creatinine and being managed by internal medicine. It was determined on postoperative day 3 the patient was stable for discharge from an orthopedic standpoint and medicine. Patient was comfortable with discharge and plan was discharged to inpatient rehab. Patient received appropriate discharge instructions as well as pain medication and DVT prophylaxis postoperatively. Given appropriate instructions for dressing management. Patient will follow-up with Dr. Wilkins/orthopedics in the office in 2 weeks. All questions answered. Understand if there is any issues questions or concerns and contact the office. Physical Exam Narrative: Right knee examination: Dressing on in place, clean dry and intact. No evidence of saturation. Patient has normal postoperative swelling and tenderness to palpation to the knee. Compartments are soft compressible,'s calf soft and nontender. Sensations intact to light touch distally. Distal pulses are palpable. Patient is able to wiggle toes as well as plantarflex and dorsiflex ankle. Urinary Catheter Management: Avalos: Cath Placed During This Visit: yes, but has since been removed by the nurse Reason for Continuing Indwelling Catheter: Other Urinary Catheter Date of Insertion: 03/01/25 Urinary Catheter Time of Insertion: 10:16 Date Urinary Catheter Removed: 03/02/25 Time Urinary Catheter Discontinued: 05:06 Discharge Data Studies Completed and Pending Completed Studies During Hospitalization Category Date Time Status XR knee RT 1-2V 95977 Routine Exams 03/01/25 12:32 Completed Radiology Impressions Knee X-Ray 03/01/25 12:32 Impression: Right knee arthroplasty. Laboratory Results WBC 15.17 10^3/uL (3.29-11.43) H 03/04/25 02:53 RBC 3.68 10^6/uL (3.85-5.65) L 03/04/25 02:53 Hgb 13.40 g/dL (11.27-16.99) 03/04/25 02:53 Hct 41.6 % (37-53) 03/04/25 02:53 MCV 113.0 fl (82-101) H 03/04/25 02:53 MCH 36.4 pg (27-33) H 03/04/25 02:53 MCHC 32.2 g/dL (30-55) 03/04/25 02:53 RDW 14.9 % (12.1-15.1) 03/04/25 02:53 Plt Count 296 10^3/cmm (157-399) 03/04/25 02:53 MPV 9.5 fL (7.4-10.4) 03/04/25 02:53 Neut % (Auto) 85.1 % 03/04/25 02:53 Lymph % (Auto) 4.2 % 03/04/25 02:53 Lumpkin % (Auto) 7.0 % 03/04/25 02:53 Eos % (Auto) 1.5 % 03/04/25 02:53 Baso % (Auto) 0.4 % 03/04/25 02:53 Neut # (Auto) 12.92 10^3/uL (1.8-7.7) H 03/04/25 02:53 Lymph # (Auto) 0.6 10^3/uL (0.8-4.8) L 03/04/25 02:53 [place]kin # (Auto) 1.1 10^3/uL (0.2-0.9) H 03/04/25 02:53 Eos # (Auto) 0.2 10^3/uL (0.0-0.8) 03/04/25 02:53 Baso # (Auto) 0.1 10^3/uL (0.0-0.1) 03/04/25 02:53 Nucleated RBC % (auto) 0 % 03/04/25 02:53 Nucleated RBCs # 0.0 /100WBC 03/04/25 02:53 Sodium 139 mmol/L (136-145) 03/04/25 02:53 Potassium 4.3 mmol/L (3.5-5.1) 03/04/25 02:53 Chloride 106 mmol/L (98-107) 03/04/25 02:53 Carbon Dioxide 24 mmol/L (22-29) 03/04/25 02:53 Anion Gap 13.3 (5-19) 03/04/25 02:53 BUN 23 mg/dL (8-23) 03/04/25 02:53 Creatinine 1.4 mg/dL (0.7-1.2) H 03/04/25 02:53 GFR Calculation Not Reportable 03/04/25 02:53 Glucose 175 mg/dL (65-115) H 03/04/25 02:53 POC Glucose 142 mg/dL (70-110) H 03/01/25 08:57 Calculated Osmolality 296 mOsm/kg (285-295) H 03/04/25 02:53 Calcium 8.2 mg/dL (8.5-10.5) L 03/04/25 02:53 Blood Type O Positive 03/01/25 08:55 Rho(D) Type Rh positive 03/01/25 08:55 Antibody Screen Negative 03/01/25 08:55 Vitals Last Vital Signs Temp 97.7 F 03/04/25 11:34 Pulse 85 03/04/25 11:34 Resp 19 H 03/04/25 11:34 BP 137/67 03/04/25 11:34 Pulse Ox 93 03/04/25 11:34 O2 Del Method Room Air 03/04/25 11:34 O2 Flow Rate 1.5 03/04/25 11:12 Discharge Plan Discharge Patient Disposition: Xfer Inpatient Rehab Fac Condition: Stable Prescriptions: New hydrocodone-acetaminophen 10-325 mg tablet 1 tab PO Q4H PRN (Reason: pain) 5 Days Qty: 30 0RF clindamycin HCl [Cleocin HCl] 150 mg capsule 300 mg PO Q8H 7 Days Qty: 42 0RF Continued hydroxyzine HCl 25 mg tablet 50 mg PO BID PRN (Reason: Itching) aspirin 325 mg tablet 325 mg PO DAILY furosemide 40 mg tablet 40 mg PO DAILY Qty: 120 3RF Rx Instructions: Take 40mg daily. May take extra 40mg for increased swelling. fluticasone propionate 50 mcg/actuation spray,suspension 2 spray intranasal DAILY PRN (Reason: allegy) Rx Instructions: administer into each nostril gabapentin 300 mg capsule 300 mg PO .qpm Qty: 90 1RF cetirizine [Zyrtec] 10 mg tablet 10 mg PO DAILY diphenhydramine HCl [Benadryl Allergy] 25 mg tablet 25 mg PO BEDTIME (DME) nebulizers Misc See Rx Instructions .Route Qty: 1 0RF Rx Instructions: 1 nebulizer and all required equipment As directed (DME) cage unloader brace, right knee See Rx Instructions .Route .MEDSUPPLY Qty: 1 0RF Rx Instructions: As directed nystatin-triamcinolone 100,000-0.1 unit/g-% cream 1 applic topical BID Qty: 60 3RF albuterol sulfate [Ventolin HFA] 90 mcg/actuation HFA aerosol inhaler 2 puff INHALATION Q6H PRN (Reason: Shortness Of Breath) Qty: 8.5 11RF carvedilol 25 mg tablet 12.5 mg PO BID Qty: 90 0RF (DME) oxygen See Rx Instructions .Route .MEDSUPPLY Qty: 1 0RF Rx Instructions: Inogen portable oxygen to use up to 4L by NC on exertion and oxygen at 4L continuous while sleeping (DME) Relion Confirm-Micro Strip See Rx Instructions .Route Qty: 100 0RF Rx Instructions: As directed check BG 3x daily (DME) blood-glucose meter [ReliOn Micro Glucose Monitor] Kit See Rx Instructions .Route Qty: 1 0RF Rx Instructions: As directed ipratropium-albuterol 0.5 mg-3 mg(2.5 mg base)/3 mL solution for nebulization 3 ml inhalation Q4H PRN (Reason: wheezing) Qty: 180 3RF metolazone 2.5 mg tablet 2.5 mg PO .every other day Qty: 90 2RF tamsulosin 0.4 mg capsule 0.4 mg PO BID Qty: 180 2RF magnesium oxide 400 mg magnesium capsule 400 mg PO DAILY Qty: 90 2RF potassium chloride 10 mEq tablet extended release 20 meq PO DAILY Qty: 180 3RF (DME) lancets [OneTouch Delica Plus Lancet] 33 gauge misc See Rx Instructions .ROUTE .COMPLEX Qty: 100 0RF Dose Instruction: USE 1 TO CHECK GLUCOSE ONCE DAILY Rx Instructions: USE 1 TO CHECK GLUCOSE ONCE DAILY Eliquis 5 mg tablet 5 mg PO BID Qty: 180 3RF sertraline 50 mg tablet 100 mg PO DAILY Qty: 60 4RF finasteride 5 mg tablet 5 mg PO DAILY Qty: 90 2RF omeprazole 40 mg capsule,delayed release(DR/EC) 40 mg PO DAILY Qty: 90 1RF Rx Instructions: replaces 20mg semaglutide 1 mg/dose (4 mg/3 mL) pen injector 1 mg SUBCUT .qwk Qty: 3 3RF Rx Instructions: this is new LOWER DOSAGE (DME) OneTouch Ultra Test Strip See Rx Instructions .ROUTE .COMPLEX Qty: 100 0RF Dose Instruction: USE 1 STRIP TO CHECK GLUCOSE ONCE DAILY Rx Instructions: USE 1 STRIP TO CHECK GLUCOSE ONCE DAILY ropinirole 2 mg tablet 2 mg PO TID Qty: 90 2RF simvastatin 20 mg tablet 20 mg PO DAILY Qty: 90 3RF spironolactone 25 mg tablet 25 mg PO DAILY Qty: 90 3RF umeclidinium-vilanterol [Anoro Ellipta] 62.5-25 mcg/actuation blister with device 1 inh inhalation DAILY Rx Instructions: Inhale 1 puff by mouth once daily hydroxyurea [Hydrea] 500 mg capsule 500 mg PO BID Rx Instructions: Take 1 capsule by mouth twice daily Jardiance 10 mg tablet 20 mg PO DAILY Rx Instructions: Take 2 tablets by mouth once daily 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 OK for DC: Orthopedics Discharge Order = DC NOW: Discharge Order (Routine); Ordered 03/04/25 Ordered By: Jason Wilkins Referrals: [facility] [Outside] Alejandro Wilkins PA [Physician Falsework Builder, Orthopedics] - 03/16/25 3:15 pm Discharge Diet: Regular Discharge Activity: Limit activity as instructed Patient Instructions: Clindamycin (By mouth), Acute Wound Care (DC), Total Knee Replacement (GEN), Opioid Safety, Post Anesthesia Care, Patient Portal & Rose Instructions Activity Restrictions/Additional Instructions: Orthopedic discharge instructions: Yanni Dressing--Keep dressing on and dry. After 3 days you can remove some of the dressing and shower. disconnect battery pack when showering. Yanni dressing will stay on until follow up appt in 2 weeks. The battery pack for the dressing will at 5-7 days. Battery pack can be removed and discarded once batteries . Patient may weight-bear as tolerate to the operative extremity Utilize walker as needed Encourage knee range of motion Ice and elevate as needed for pain and swelling Take pain medication as prescribed Take antinausea medication as needed Pain medication can cause constipation. take [id number] stool softeners and or MiraLAX. Resume home Eliquis as prescribed Take antibiotic (clindamycin) as prescribed for postoperative antibiotic infection prophylaxis May supplement for pain with Tylenol [id number] as needed(1000 mg every 8 hours-do not exceed more than 3000mg in 24-hour period) No baths or soaks Follow-up in the orthopedic office in 2 weeks Contact the office for any questions or concerns Discharge Attestations Time Spent in Discharge Care*: less than 30 min Quality Metrics Clinical Quality Measures [ No reported AMI, CVA or VTE this stay] Coding Level of Care Code Acute Code for Chg Fwd Diagnoses S/P total knee replacement using cement Z96.659 Supplemental oxygen dependent Z99.81 Dependence on nocturnal oxygen therapy Z99.81 Chronic obstructive pulmonary disease, unspecified COPD type J44.9 COPD type: unspecified COPD Progressive pulmonary hypertension I27.20 Type 2 diabetes mellitus with stage 2 chronic kidney disease, without long-term current use of insulin E11.22; N18.2 Chronic kidney disease stage: stage 2 (mild) Diabetes mellitus production planner insulin use: without production planner use Uncontrolled type 2 diabetes mellitus with hyperglycemia E11.65 Glycemic state: with hyperglycemia Morbid obesity E66.01 Longstanding persistent atrial fibrillation I48.11 Atrial fibrillation type: longstanding persistent Acute on chronic diastolic heart failure I50.33 Heart failure chronicity: acute on chronic Essential hypertension I10 Hypertension type: essential hypertension Time Spent (min) 25
--- NOTE | 2025-03-04 12:43 | PC.NURSE ---
This nurse called report to MARGOTH Valdivia at [facility] at 1240. EMS to transport pt.
[2025-03-04 14:53] VITALS: PULSE 79; RESP 18; O2SAT 92
--- NOTE | 2025-03-04 15:22 | PC.OT ---
OT TREATMENT HELD DUE TO SCHEDULED PATIENT D/C TODAY
[2025-03-04 17:11] VITALS: BP 137/67; PULSE 85; O2SAT 94
== END 2025-03-04 17:11 ==
LOC: MEDSURG 16:51
PROVIDERS: Physician Assistant; Admitting Provider Student in an Organized Health Care Education/Training Program; PCP Family Medicine; Visit Provider Student in an Organized Health Care Education/Training Program
PROC: 8E0Y0CZ Robotic Assisted Procedure of Lower Extremity, Open Approach (ICD-10-PCS; CPT 27447; principal; 2025-03-01 09:35)
DX: M17.11 Unilateral primary osteoarthritis, right knee (principal); J44.9 Chronic obstructive pulmonary disease, unspecified; Z99.81 Dependence on supplemental oxygen; I27.20 Pulmonary hypertension, unspecified; E11.22 Type 2 diabetes mellitus with diabetic chronic kidney disease; I13.0 Hypertensive heart and chronic kidney disease with heart failure and stage 1 through stage 4 chronic kidney disease, or unspecified chronic kidney disease; N18.2 Chronic kidney disease, stage 2 (mild); I50.33 Acute on chronic diastolic (congestive) heart failure; E11.65 Type 2 diabetes mellitus with hyperglycemia; E66.01 Morbid (severe) obesity due to excess calories; Z68.42 Body mass index [BMI] 45.0-49.9, adult; K21.9 Gastro-esophageal reflux disease without esophagitis; Z79.01 Long term (current) use of anticoagulants; Z79.82 Long term (current) use of aspirin; G47.33 Obstructive sleep apnea (adult) (pediatric); Z99.89 Dependence on other enabling machines and devices; Z87.891 Personal history of nicotine dependence
CPT/HCPCS: 64447; 27447; 20985; 36415; 36416; 51702; 73560; 80048; 82962; 85025; 86850; 86900; 94640; 97110; 97116; 97161; 97165; 97530; 97535; A4216; C1713; C1776; G0378; J0131; J0169; J1885; J2704; J2795; J3010; J3373; J3490; J7030; J7120; J8999; J9999; L8699; P9045

== ENCOUNTER → 2025-03-17 08:30 | Outpatient (BNVA) | payer MEDICARE, SELFPAY | PROVIDERS: PCP Family Medicine; Visit Provider Physician Assistant | DX: Z98.890 Other specified postprocedural states (principal) | CPT/HCPCS: 73560; 73565; 99024 ==

== ENCOUNTER 2025-03-24 05:00 | Outpatient (RCR) | payer MEDICARE, SELFPAY | END 2025-04-23 23:55 | disposition home or self-care (01) | LOC: TPT 05:00 | PROVIDERS: PCP Family Medicine; Visit Provider Physician Assistant | DX: Z47.1 Aftercare following joint replacement surgery (principal); Z96.659 Presence of unspecified artificial knee joint | CPT/HCPCS: 97161 ==

== ENCOUNTER → 2025-03-25 09:02 | Outpatient (BNVA) | payer MEDICARE, SELFPAY | PROVIDERS: PCP Family Medicine; Visit Provider Internal Medicine | DX: J96.11 Chronic respiratory failure with hypoxia (principal); Z99.81 Dependence on supplemental oxygen; G47.33 Obstructive sleep apnea (adult) (pediatric); Z99.89 Dependence on other enabling machines and devices; J98.4 Other disorders of lung; J44.9 Chronic obstructive pulmonary disease, unspecified; I27.20 Pulmonary hypertension, unspecified; I50.9 Heart failure, unspecified; Z87.891 Personal history of nicotine dependence | CPT/HCPCS: 36415; 80053; 80061; 82044; 83036; 83615; 85025; 99214; Q3014 ==

== ENCOUNTER → 2025-04-06 10:39 | Outpatient (BNVA) | payer MEDICARE, SELFPAY | PROVIDERS: PCP Family Medicine; Visit Provider Family Medicine | DX: N40.1 Benign prostatic hyperplasia with lower urinary tract symptoms (principal) | CPT/HCPCS: 87086 ==

== ENCOUNTER → 2025-04-14 13:28 | Outpatient (BNVA) | payer MEDICARE, SELFPAY | PROVIDERS: PCP Family Medicine; Visit Provider Internal Medicine Cardiovascular Disease | DX: I48.91 Unspecified atrial fibrillation (principal); Z79.01 Long term (current) use of anticoagulants; Z79.82 Long term (current) use of aspirin; I13.0 Hypertensive heart and chronic kidney disease with heart failure and stage 1 through stage 4 chronic kidney disease, or unspecified chronic kidney disease; E11.22 Type 2 diabetes mellitus with diabetic chronic kidney disease; N18.9 Chronic kidney disease, unspecified; I50.33 Acute on chronic diastolic (congestive) heart failure; Z79.84 Long term (current) use of oral hypoglycemic drugs | CPT/HCPCS: 99213 ==

== ENCOUNTER → 2025-04-28 08:57 | Outpatient (BNVA) | payer MEDICARE, SELFPAY | PROVIDERS: PCP Family Medicine; Visit Provider Physician Assistant | DX: Z98.890 Other specified postprocedural states (principal); Z96.651 Presence of right artificial knee joint; Z01.89 Encounter for other specified special examinations | CPT/HCPCS: 73560; 73565 ==

== ENCOUNTER 2025-04-30 10:37 | Outpatient (CLI) | payer MEDICARE, SELFPAY ==
[2025-04-30 10:58] VITALS: PULSE 69; RESP 18; O2SAT 95
== END 2025-04-30 10:38 | disposition home or self-care (01) ==
PROVIDERS: PCP Family Medicine; Visit Provider Internal Medicine
DX: J44.9 Chronic obstructive pulmonary disease, unspecified (principal)
CPT/HCPCS: 94060; 94726; 94729; J7613

== ENCOUNTER → 2025-05-04 11:06 | Outpatient (BNVA) | payer MEDICARE, SELFPAY | PROVIDERS: PCP Family Medicine; Visit Provider Internal Medicine | DX: J96.11 Chronic respiratory failure with hypoxia (principal); Z99.81 Dependence on supplemental oxygen; G47.33 Obstructive sleep apnea (adult) (pediatric); J98.4 Other disorders of lung; J44.9 Chronic obstructive pulmonary disease, unspecified; I27.20 Pulmonary hypertension, unspecified; Z86.79 Personal history of other diseases of the circulatory system; Z87.891 Personal history of nicotine dependence | CPT/HCPCS: 99213; Q3014 ==

== ENCOUNTER 2025-05-19 13:59 | Outpatient (RCR) | payer MEDICARE, SELFPAY | END 2025-05-23 23:59 | disposition home or self-care (01) | LOC: TPT 13:59 | PROVIDERS: PCP Family Medicine; Visit Provider Physician Assistant | DX: Z47.1 Aftercare following joint replacement surgery (principal); Z96.659 Presence of unspecified artificial knee joint | CPT/HCPCS: 97110; 99024 ==

== ENCOUNTER → 2025-05-28 12:59 | Outpatient (BNVA) | payer MEDICARE, SELFPAY | PROVIDERS: PCP Family Medicine; Visit Provider Family Medicine | DX: N40.1 Benign prostatic hyperplasia with lower urinary tract symptoms (principal) | CPT/HCPCS: 87086 ==

== ENCOUNTER 2025-06-07 11:39 | Outpatient (CLI) | payer MEDICARE, SELFPAY ==
--- NOTE | 2025-06-07 12:00 | CT_ITS ---
WS: [id number] LDCT LUNG CANCER SCREENING TECHNIQUE: Noncontrast CT of the chest with coronal and sagittal reformatted images. CLINICAL INFORMATION: lung screening COMPARISON: 2023 DLP: 215.41 mGy.cm DIvol: Mean CTDIvol: 5.60 (mGy) All CT scans at [facility] use at least one of these dose optimization techniques: automated exposure control; mA and/or kV adjustment per patient size (includes targeted exams where dose is matched to clinical indication); or iterative reconstruction. FINDINGS: A few tiny scattered micronodules. Few tiny calcified granulomas. Cholecystectomy clips. Small esophageal hiatal hernia. Adrenal glands are normal. Moderate thoracic kyphosis. Hypertrophic changes thoracic spine. Normal caliber thoracic aorta. Aortic calcification. Coronary calcification. CT/CT lung screening [id number] IMPRESSION: LUNG-RADS: 2-Benign Appearance or Behavior FOLLOW UP: 12 Month: Continue annual screening with LDCT
== END 2025-06-07 11:40 | disposition home or self-care (01) ==
LOC: RAD 11:40
PROVIDERS: PCP Family Medicine; Visit Provider Internal Medicine
DX: Z12.2 Encounter for screening for malignant neoplasm of respiratory organs (principal); F17.210 Nicotine dependence, cigarettes, uncomplicated; F17.211 Nicotine dependence, cigarettes, in remission; J98.4 Other disorders of lung; Z90.49 Acquired absence of other specified parts of digestive tract; K44.9 Diaphragmatic hernia without obstruction or gangrene; M40.204 Unspecified kyphosis, thoracic region; I25.10 Atherosclerotic heart disease of native coronary artery without angina pectoris
CPT/HCPCS: 71271

== ENCOUNTER 2025-06-21 14:49 | Outpatient (RCR) | payer MEDICARE, SELFPAY | END 2025-06-23 23:59 | disposition home or self-care (01) | LOC: TPT 14:49 | PROVIDERS: PCP Family Medicine; Visit Provider Physician Assistant | DX: Z47.1 Aftercare following joint replacement surgery (principal); Z96.659 Presence of unspecified artificial knee joint | CPT/HCPCS: 97110 ==